=== PATIENT | male | born 1975 | race Caucasian/White ===

== ENCOUNTER 2016-12-01 18:50 | Emergency (ER) | payer OTHER ==
[~2016-12-01] VITALS: Ht 172.7 cm; Wt 91.4 kg
[~2016-12-01 18:50] MED LIST: CLON1TAB3 PO; FAMO20TA11 PO; FLUT0.15; LPR25 PO; METO25TA56 PO; PRLSR20 PO
[2016-12-01 19:01] VITALS: TEMP 37.2; Ht 172.7 cm; Wt 91.4 kg
[2016-12-01] MEDS ORDERED: CLONAZEPAM 1 MG TAB PO STA (19:18)
[2016-12-01 19:43] LABS: URINE APPEARANCE CLEAR (CLEAR); URINE BILIRUBIN NEG (NEG); URINE COLOR YELLOW; URINE EPITHELIAL CELL AUTO 20-30 /lpf (0-5); URINE NITRITE NEG (NEG); URINE SPECIFIC GRAVITY 1.019 (1.000-1.030); UROBILINOGEN NEG (NEG)
[2016-12-01 19:45] LABS: MANUAL MICROSCOPIC REQUIRED? NO; REVIEW REQ? NO
--- NOTE | 2016-12-01 19:53 | DIAGNOSTIC IMAGING REPORT ---
SINGLE VIEW CHEST CLINICAL HISTORY: Dyspnea. Anxiety. FINDINGS: An AP, portable, upright chest radiograph is compared to study dated 02/15/2016. The cardiomediastinal silhouette is unremarkable. Small calcified granulomas are again seen in the right lower lobe. The lungs and pleural spaces are otherwise clear. No pneumothorax is seen. The bony thorax is grossly intact. Bilateral nipple piercings are noted. IMPRESSION: No active disease in the chest. Electronically signed by: Edgar Miramontes M.D. 12/01/2016 7:52 PM Dictated Date/Time: 12/01/2016 7:51 PM
[2016-12-01 20:01] LABS: BENZODIAZEPINE, URINE NEG (NEG); COCAINE,URINE NEG (NEG); PHENCYCLIDINE, URINE NEG (NEG)
[2016-12-01 20:08] LABS: BASO % 0.3 %; BASO ABS # 0.03 K/uL (0-0.2); COMPLETE YES; EOS % 1.1 %; HEMATOCRIT 45.7 % (42-52); IG% 0.5 %; LYMPH % 17.6 %; LYMPH ABS # 1.71 K/uL (1.2-3.4); MEAN CELL VOLUME 93.3 fL (80-100); MEAN CORPUSCULAR HEMOGLOBIN 32.4 pg (25-34); MEAN CORPUSCULAR HGB CONC 34.8 g/dl (32-36); MEAN PLATELET VOLUME 10.4 fL (7.4-10.4); MONO % 6.4 %; NEUT % 74.1 %; PLATELET COUNT 185 K/uL (130-400); WHITE BLOOD COUNT 9.69 K/uL (4.8-10.8)
[2016-12-01 20:15] LABS: BUN/CREATININE RATIO 9.5 (10-20); CREATININE 1.1 mg/dl (0.60-1.40); POTASSIUM 3.9 mmol/L (3.5-5.1)
[2016-12-01 20:16] LABS: CALCIUM 9.2 mg/dl (8.5-10.1)
[2016-12-01 20:26] LABS: THYROID STIMULATING HORMONE 2.05 uIu/ml (0.300-4.500)
--- NOTE | 2016-12-01 21:07 | EMERGENCY ROOM VISIT NOTE ---
History First contact with patient: 19:06 Chief Complaint: MENTAL HEALTH EVALUATION Stated Complaint: ANXIETY,SHAKING,DIZZINESS,NAUSEA History of Present Illness The patient is a 41 year old male who presents to the Emergency Room with complaints of anxiety. The patient states that he has a history of anxiety. He reports his symptoms have been worsening over the past 3 days. He reports that he was recently kicked out of his house, which is causing an increase in his anxiety. He also did not have access to his clonazepam. He contacted his primary care provider, who did write him a prescription for clonazepam. He states that he typically takes 1 mg daily but recently has been taking 0.5 mg in the morning and 0.5 mg at night. He is currently living with a friend. He states that he is feeling lightheaded, shaky and nauseous. He is having difficulty eating and difficulty sleeping due to his anxiety. He denies any depression. He denies any thoughts of harming himself or others. He typically sees his primary care provider for his chronic anxiety. The patient does admit to drinking 3-4 years daily. He denies any other drug use. Review of Systems A complete 10 point review of systems was reviewed with the patient with pertinent positives and negatives as per history of present illness. All else were negative. Past Medical/Surgical History Medical Problems: (1) Bacterial meningitis (2) Peripheral neuropathy Social History Smoking Status: Current Every Day Smoker Drug Use: none Marital Status: Housing Status: lives with family Occupation Status: employed Current/Historical Medications Scheduled Clonazepam (Klonopin), 1 MG PO HS Clonazepam (Klonopin), 1 MG PO DAILY Fluticasone Propionate (Nasal) (Flonase Allergy Relief), 2 SPRAYS NA DAILY Metoprolol Tartrate (Lopressor) (Lopressor), 25 MG PO BID Scheduled PRN Omeprazole (Prilosec), 20 MG PO BID PRN for PRN Allergies Coded Allergies: No Known Allergies (Verified , 12/01/16) Physical Exam Vital Signs Date Time Temp Pulse Resp B/P (MAP) Pulse Ox O2 Delivery O2 Flow Rate FiO2 12/01/16 21:22 90 18 155/91 98 12/01/16 20:15 94 20 141/99 96 Room Air 12/01/16 19:01 37.2 101 18 159/95 98 Room Air Physical Exam VITALS: Vitals are noted on the nurse's note and reviewed by myself. Vital signs stable. GENERAL: This is a 41-year-old male, anxious appearing, nondiaphoretic, well- developed well-nourished. SKIN: Capillary reflex less than 2 seconds. HEENT: Normocephalic. PERRLA. EOMI. Nares patent. Mucous membranes moist. Neck is supple without nuchal rigidity. HEART: Regular rate and rhythm without murmurs gallops or rubs. LUNGS: Clear to auscultation bilaterally without wheezes, rales or rhonchi. MUSCULOSKELETAL: Strength 5/5 throughout. NEURO: Patient was alert and oriented to person place and time. Normal sensation to light and sharp touch. Medical Decision & Procedures ER Provider Diagnostic Interpretation: SINGLE VIEW CHEST CLINICAL HISTORY: Dyspnea. Anxiety. FINDINGS: An AP, portable, upright chest radiograph is compared to study dated 02/15/2016. The cardiomediastinal silhouette is unremarkable. Small calcified granulomas are again seen in the right lower lobe. The lungs and pleural spaces are otherwise clear. No pneumothorax is seen. The bony thorax is grossly intact. Bilateral nipple piercings are noted. IMPRESSION: No active disease in the chest. Laboratory Results 12/01/16 19:40 Red Blood Count 4.90, Mean Corpuscular Volume 93.3, Mean Corpuscular Hemoglobin 32.4, Mean Corpuscular Hemoglobin Concent 34.8, Mean Platelet Volume 10.4, Neutrophils (%) (Auto) 74.1, Lymphocytes (%) (Auto) 17.6, Monocytes (%) (Auto) 6.4, Eosinophils (%) (Auto) 1.1, Basophils (%) (Auto) 0.3, Neutrophils # (Auto) 7.17, Lymphocytes # (Auto) 1.71, Monocytes # (Auto) 0.62, Eosinophils # (Auto) 0.11, Basophils # (Auto) 0.03 12/01/16 19:40 Test 12/01/16 19:10 12/01/16 19:40 12/01/16 19:57 Urine Color YELLOW Urine Appearance CLEAR (CLEAR) Urine pH 5.0 (4.5-7.5) Urine Specific Worth 1.019 (1.000-1.030) Urine Protein NEG (NEG) Urine Glucose (UA) NEG (NEG) Urine Ketones TRACE (NEG) Urine Occult Blood NEG (NEG) Urine Nitrite NEG (NEG) Urine Bilirubin NEG (NEG) Urine Urobilinogen NEG (NEG) Urine Leukocyte Esterase SMALL (NEG) Urine WBC (Auto) 5-10 /hpf (0-5) Urine RBC (Auto) 0-4 /hpf (0-4) Urine Hyaline Casts (Auto) 1-5 /lpf (0-5) Urine Epithelial Cells (Auto) 20-30 /lpf (0-5) Urine Bacteria (Auto) NEG (NEG) Urine Opiates Screen NEG (NEG) Urine Methadone, Qualitative NEG (NEG) Urine Barbiturates NEG (NEG) Urine Phencyclidine (PCP) Level NEG (NEG) Ur Amphetamine/Methamphetamine NEG (NEG) MDMA (Ecstasy) Screen NEG (NEG) Urine Benzodiazepines Screen NEG (NEG) Urine Cocaine Metabolite NEG (NEG) Urine Marijuana (THC) POS (NEG) White Blood Count 9.69 K/uL (4.8-10.8) Red Blood Count 4.90 M/uL (4.7-6.1) Hemoglobin 15.9 g/dL (14.0-18.0) Hematocrit 45.7 % (42-52) Mean Corpuscular Volume 93.3 fL (80-100) Mean Corpuscular Hemoglobin 32.4 pg (25-34) Mean Corpuscular Hemoglobin Concent 34.8 g/dl (32-36) Platelet Count 185 K/uL (130-400) Mean Platelet Volume 10.4 fL (7.4-10.4) Neutrophils (%) (Auto) 74.1 % Lymphocytes (%) (Auto) 17.6 % Monocytes (%) (Auto) 6.4 % Eosinophils (%) (Auto) 1.1 % Basophils (%) (Auto) 0.3 % Neutrophils # (Auto) 7.17 K/uL (1.4-6.5) Lymphocytes # (Auto) 1.71 K/uL (1.2-3.4) Monocytes # (Auto) 0.62 K/uL (0.11-0.59) Eosinophils # (Auto) 0.11 K/uL (0-0.5) Basophils # (Auto) 0.03 K/uL (0-0.2) RDW Standard Deviation 46.3 fL (36.4-46.3) RDW Coefficient of Variation 13.5 % (11.5-14.5) Immature Granulocyte % (Auto) 0.5 % Immature Granulocyte # (Auto) 0.05 K/uL (0.00-0.02) Anion Gap 8.0 mmol/L (3-11) Est Creatinine Clear Calc Drug Dose 97.0 ml/min Estimated GFR () 96.1 Estimated GFR (Non- 82.9 BUN/Creatinine Ratio 9.5 (10-20) Calcium Level 9.2 mg/dl (8.5-10.1) Total Bilirubin 0.4 mg/dl (0.2-1) Aspartate Amino Transf (AST/SGOT) 116 U/L (15-37) Alanine Aminotransferase (ALT/SGPT) 205 U/L (12-78) Alkaline Phosphatase 89 U/L (45-117) Total Protein 7.2 gm/dl (6.4-8.2) Albumin 3.6 gm/dl (3.4-5.0) Globulin 3.6 gm/dl (2.5-4.0) Albumin/Globulin Ratio 1.0 (0.9-2) Thyroid Stimulating Hormone (TSH) 2.050 uIu/ml (0.300-4.500) Ethyl Alcohol mg/dL < 3.0 mg/dl (0-3) Medications Administered Medications (Trade) Dose Ordered Sig/Aquilino Route Start Time Stop Time Status Last Admin Dose Admin Clonazepam (Klonopin Tab) 1 mg NOW STAT PO 12/01/16 19:18 12/01/16 19:23 DC 12/01/16 19:44 1 MG ECG Rate (beats per minute): 95 Rhythm: normal sinus Findings: no acute ischemic change, no ectopy Comparison ECG Date: no prior available ED Course The patient was evaluated as above. Labs were drawn and IV access was obtained. Patient was medicated with 1 mg clonazepam. He's management with ostomy with the patient to discuss mental health resources. Patient was reevaluated and felt much better. Discharge instructions were reviewed with the patient. The patient verbalized understanding of my assessment and treatment plan and was discharged home in good condition. Medical Decision Differential diagnosis includes anxiety, hyperthyroidism, electrolyte abnormality, arrhythmia, among others. The patient is a 41-year-old male who presents today complaining of increased anxiety due to stressful events recently. Labs were unremarkable. TSH was within normal limits. Patient did have mild elevation of LFTs likely secondary to alcohol use. EKG shows a normal sinus rhythm. The patient does have a history of anxiety. Case management with the patient and provided him with resources. He will follow-up with his primary care provider this week. I do feel that the patient is safe for discharge home but recommended that he come back if he has increased depression or any thoughts of harming himself or others. Based on the patient's presentation and work up, I feel the patient is stable for outpatient treatment. The patient was educated to return to the emergency department for any worsening of their current condition or new/concerning symptoms. He will follow up with his PCP. Impression Primary Impression: Acute anxiety Departure Information Dispostion Home / Self-Care Condition GOOD Referrals Karely Delgadillo M.D. (MEDICAL) (PCP) Forms HOME CARE DOCUMENTATION FORM, IMPORTANT VISIT INFORMATION Patient Instructions My [facility] Additional Instructions Follow-up with Dr. Delgadillo as soon as possible. Call tomorrow for appointment. Return to the emergency department with any worsening or new/concerning symptoms or if you have any worsening depression or thoughts of hurting yourself or others.
[2016-12-01 21:22] VITALS: BP 155/91; PULSE 90; O2SAT 98
[2016-12-31] MEDS ORDERED: NICO14DI5 TD (13:58)
[2016-12-31] MEDS ORDERED: FLV1 PO (13:58)
[2016-12-31] MEDS ORDERED: ELQ25 PO (13:58)
[2016-12-31] MEDS ORDERED: THM100 PO (13:58)
[2016-12-31] MEDS ORDERED: ULT50X PO (16:05)
== END 2016-12-01 21:24 | disposition home or self-care (01) ==
LOC: C.EDB 18:51 → C.EDC 21:24
DX: F41.9 Anxiety disorder, unspecified (principal); G62.9 Polyneuropathy, unspecified; F17.200 Nicotine dependence, unspecified, uncomplicated; Z86.61 Personal history of infections of the central nervous system; Z79.899 Other long term (current) drug therapy

== ENCOUNTER 2016-12-29 22:12 | Inpatient (IN) | payer OTHER ==
[~2016-12-29] VITALS: Ht 172.7 cm; Wt 83.2 kg
[~2016-12-29 22:12] MED LIST changes: -FAMO20TA11 PO; -LPR25 PO
[2016-12-29] MEDS ORDERED: SODIUM CHLORIDE 0.9% 1000ML 1,000 ML IV STA ×2 (22:25)
[2016-12-29] MEDS ORDERED: MoRPHine SULFATE 4 MG/ML 1 ML CARP\\VIAL IV STA (22:25)
[2016-12-29] MEDS ORDERED: ONDANSETRON INJ 2 MG/ML 2 ML VIAL IV STA (22:25)
[2016-12-29] MEDS ORDERED: OPTIRAY 320 IV PRN (22:45)
[2016-12-29 22:55] LABS: BASO % 0.3 %; BASO ABS # 0.03 K/uL (0-0.2); COMPLETE YES; EOS % 0.7 %; HEMATOCRIT 48.3 % (42-52); IG% 0.4 %; LYMPH ABS # 1.61 K/uL (1.2-3.4); MEAN CELL VOLUME 91.1 fL (80-100); MEAN CORPUSCULAR HEMOGLOBIN 32.5 pg (25-34); MEAN CORPUSCULAR HGB CONC 35.6 g/dl (32-36); MEAN PLATELET VOLUME 10.4 fL (7.4-10.4); MONO % 13.7 %; NEUT % 69.9 %; PLATELET COUNT 207 K/uL (130-400); WHITE BLOOD COUNT 10.75 K/uL (4.8-10.8)
[2016-12-29 22:59] LABS: ISTAT CREATININE 0.8 mg/dl (0.6-1.3); ISTAT IONIZED CALCIUM 1.15 mmol/l (1.12-1.32)
[2016-12-29 23:13] LABS: ALT/SGPT 93 U/L (12-78); BLOOD UREA NITROGEN 8 mg/dl (7-18); BUN/CREATININE RATIO 7.5 (10-20); CALCIUM 9.3 mg/dl (8.5-10.1); CARBON DIOXIDE 23 mmol/L (21-32); CHLORIDE 104 mmol/L (98-107); GLUCOSE 145 mg/dl (70-99); POTASSIUM 3.8 mmol/L (3.5-5.1); SODIUM 137 mmol/L (136-145)
[2016-12-29 23:18] LABS: ALKALINE PHOSPHATASE 95 U/L (45-117); AST/SGOT 32 U/L (15-37)
[2016-12-29 23:22] LABS: POINT OF CARE TROPONIN I < 0.030 ng/ml (0-0.045)
[2016-12-30] VITALS (9 sets, daily range): BP systolic 101–128; BP diastolic 57–86; PULSE 71–90; TEMP 36.7–37.4; O2SAT 92–97; Ht 172.7 cm; Wt 83.2 kg
[2016-12-30 00:11] LABS: PARTIAL THROMBOPLASTIN RATIO 1.1; PROTHROMBIN TIME (PATIENT) 10.6 SECONDS (9.0-12.0)
[2016-12-30] MEDS ORDERED: HEPARIN IV BOLUS 6,000 UNIT in SYRINGE 0 ML IV ONE (00:30)
[2016-12-30] MEDS ORDERED: LORAZEPAM 2 MG/ML 1 ML VIAL IV ONE (00:35)
[2016-12-30] MEDS: HEPARIN 25,000 UNIT/500ML D5W 500 ML IV PRN ×2 (00:39→18:43)
[2016-12-30] MEDS ORDERED: LORAZEPAM 2 MG/ML 1 ML VIAL ONE (00:43)
[2016-12-30] MEDS ORDERED: MULTI VITAMIN INFUSION IV ONE (00:45)
[2016-12-30] MEDS ORDERED: FOLIC ACID IV ONE (00:45)
[2016-12-30] MEDS ORDERED: ONDANSETRON INJ 2 MG/ML 2 ML VIAL IV PRN (00:45)
[2016-12-30] MEDS ORDERED: LORAZEPAM 2 MG/ML 1 ML VIAL IV PRN (00:45)
[2016-12-30] MEDS ORDERED: GABAPENTIN 600 MG TAB PO SCH (00:45)
[2016-12-30] MEDS ORDERED: ACETAMINOPHEN 325 MG TAB PO PRN (00:45)
[2016-12-30] MEDS ORDERED: THIAMINE HCL IV ONE (00:45)
[2016-12-30] MEDS ORDERED: [UNRECOGNIZED DRUG - OTHER] IV ONE (00:45)
--- NOTE | 2016-12-30 00:54 | EMERGENCY ROOM VISIT NOTE ---
History First contact with patient: 22:18 Chief Complaint: LEG PAIN,LEG INJURY Stated Complaint: L LEG AND CHEST PAIN, R RIB PAIN History of Present Illness The patient is a 41 year old male who presents to the Emergency Room with complaints of chest pain, difficulty breathing for the past day has had left leg pain for the past week. Patient does smoke. No recent travel. No Family history of clotting disorder. He does not have cancer. He describes the right- sided chest pain as aching, ranging in severity 6 out of 10 worse with breathing and better with rest. It does not radiate. Patient denies fevers, cough, congestion, abdominal pain, diaphoresis, headache, weakness. No injury to the area Review of Systems See HPI for pertinent positives & negatives. A total of 10 systems reviewed and were otherwise negative. Past Medical/Surgical History Medical Problems: (1) Bacterial meningitis (2) Peripheral neuropathy (3) Pulmonary embolism Social History Smoking Status: Current Every Day Smoker Drug Use: none Marital Status: Housing Status: lives with family Occupation Status: employed Current/Historical Medications Scheduled Clonazepam (Klonopin), 1 MG PO DAILY Metoprolol Tartrate (Lopressor) (Lopressor), 25 MG PO BID Scheduled PRN Fluticasone Propionate (Nasal) (Flonase Allergy Relief), 2 SPRAYS NA DAILY PRN for Nasal Congestion Omeprazole (Prilosec), 20 MG PO BID PRN for Heartburn Allergies Coded Allergies: No Known Allergies (Verified , 12/29/16) Physical Exam Vital Signs Date Time Temp Pulse Resp B/P (MAP) Pulse Ox O2 Delivery O2 Flow Rate FiO2 12/30/16 00:34 94 18 131/100 96 Room Air 12/29/16 23:09 Room Air 12/29/16 23:09 96 Room Air 12/29/16 22:40 112 12/29/16 22:14 36.9 122 18 149/100 96 Room Air Physical Exam VITALS: Vitals are noted on the nurse's note and reviewed by myself. Vital signs tachycardic. GENERAL: Pleasant male who appears short of breath, in no acute distress, nondiaphoretic, well-developed well-nourished. SKIN: The skin was without rashes, erythema, edema, or bruising. There is no tenting of the skin. Capillary reflex less than 2 seconds. HEAD: Normocephalic atraumatic. EARS: External auditory canals clear, tympanic membranes pearly trimble without erythema or effusion bilaterally. EYES: Pupils equal round and reactive to light and accommodation. Conjunctivae without injection, sclerae without icterus. Extraocular movements intact. NOSE: Patent, turbinates without inflammation or discharge. MOUTH: Mucous membranes moist. Pharynx without erythema or exudate. Uvula midline. Airway patent. Tongue does not deviate. NECK: Supple without nuchal rigidity. No lymphadenopathy. No thyromegaly. Cervical spine is nontender. No JVD. HEART: Tachycardic Regular rate and rhythm without murmurs gallops or rubs. LUNGS: Clear to auscultation bilaterally without wheezes, rales or rhonchi. No dullness to percussion. No retractions or accessory muscle use. Chest nontender to palpation ABDOMEN: Positive bowel sounds x 4. Normal tympanic percussion. Soft, nontender, without masses or organomegaly. Smith sign negative. No guarding or rebound tenderness. MUSCULOSKELETAL: No muscle atrophy, erythema, or edema noted. Left calf tender to palpation NEURO: Patient was alert and oriented to person place and time. Normal sensation to light and sharp touch. No focal neurological deficits. Medical Decision & Procedures Laboratory Results 12/29/16 22:44 Red Blood Count 5.30, Mean Corpuscular Volume 91.1, Mean Corpuscular Hemoglobin 32.5, Mean Corpuscular Hemoglobin Concent 35.6, Mean Platelet Volume 10.4, Neutrophils (%) (Auto) 69.9, Lymphocytes (%) (Auto) 15.0, Monocytes (%) (Auto) 13.7, Eosinophils (%) (Auto) 0.7, Basophils (%) (Auto) 0.3, Neutrophils # (Auto ) 7.53, Lymphocytes # (Auto) 1.61, Monocytes # (Auto) 1.47, Eosinophils # (Auto ) 0.07, Basophils # (Auto) 0.03 12/29/16 22:44 Test 12/29/16 22:44 12/29/16 22:46 12/29/16 23:03 12/30/16 00:24 White Blood Count 10.75 K/uL (4.8-10.8) Red Blood Count 5.30 M/uL (4.7-6.1) Hemoglobin 17.2 g/dL (14.0-18.0) Hematocrit 48.3 % (42-52) Mean Corpuscular Volume 91.1 fL (80-100) Mean Corpuscular Hemoglobin 32.5 pg (25-34) Mean Corpuscular Hemoglobin Concent 35.6 g/dl (32-36) Platelet Count 207 K/uL (130-400) Mean Platelet Volume 10.4 fL (7.4-10.4) Neutrophils (%) (Auto) 69.9 % Lymphocytes (%) (Auto) 15.0 % Monocytes (%) (Auto) 13.7 % Eosinophils (%) (Auto) 0.7 % Basophils (%) (Auto) 0.3 % Neutrophils # (Auto) 7.53 K/uL (1.4-6.5) Lymphocytes # (Auto) 1.61 K/uL (1.2-3.4) Monocytes # (Auto) 1.47 K/uL (0.11-0.59) Eosinophils # (Auto) 0.07 K/uL (0-0.5) Basophils # (Auto) 0.03 K/uL (0-0.2) RDW Standard Deviation 42.9 fL (36.4-46.3) RDW Coefficient of Variation 12.9 % (11.5-14.5) Immature Granulocyte % (Auto) 0.4 % Immature Granulocyte # (Auto) 0.04 K/uL (0.00-0.02) Prothrombin Time 10.6 SECONDS (9.0-12.0) Prothromb Time International Ratio 1.0 (0.9-1.1) Activated Partial Thromboplast Time 28.7 SECONDS (21.0-31.0) Partial Thromboplastin Ratio 1.1 Est Creatinine Clear Calc Drug Dose 102.1 ml/min Estimated GFR () 107.9 Estimated GFR (Non- 93.1 BUN/Creatinine Ratio 7.5 (10-20) Calcium Level 9.3 mg/dl (8.5-10.1) Magnesium Level 2.0 mg/dl (1.8-2.4) Total Bilirubin 0.7 mg/dl (0.2-1) Direct Bilirubin 0.2 mg/dl (0-0.2) Aspartate Amino Transf (AST/SGOT) 32 U/L (15-37) Alanine Aminotransferase (ALT/SGPT) 93 U/L (12-78) Alkaline Phosphatase 95 U/L (45-117) Total Creatine Kinase 53 U/L (39-308) Troponin I < 0.015 ng/ml (0-0.045) Total Protein 8.2 gm/dl (6.4-8.2) Albumin 3.9 gm/dl (3.4-5.0) Lipase 187 U/L (73-393) Hepatitis B Surface Antigen NEG (NEG) Hepatitis C Antibody NEG (NEG) Bedside Hemoglobin 16.0 g/dl (14.0-18.0) Bedside Hematocrit 47 % (42-52) Bedside Sodium 137 mEq/L (135-144) Bedside Potassium 3.8 mEq/L (3.3-5.0) Bedside Chloride 101 mEq/L (101-112) Bedside Total CO2 22 mEq/l (24-31) Anion Gap 19.0 mmol/L (16-25) Bedside Blood Urea Nitrogen 6 mg/dl (7-18) Bedside Creatinine 0.8 mg/dl (0.6-1.3) Bedside Glucose (other) 152 mg/dl (70-99) Bedside Ionized Calcium (Raul) 1.15 mmol/l (1.12-1.32) Bedside D-Dimer > 450 ng/mlFEU (0-450) Bedside Troponin I < 0.030 ng/ml (0-0.045) Test 12/30/16 00:36 Medications Administered Medications (Trade) Dose Ordered Sig/Aquilino Route Start Time Stop Time Status Last Admin Dose Admin Sodium Chloride 1,000 ml @ 999 mls/hr Q1H1M STAT IV 12/29/16 22:25 12/29/16 23:25 DC 12/29/16 22:25 999 MLS/HR Morphine Sulfate (MoRPHine SULFATE INJ) 4 mg NOW STAT IV 12/29/16 22:25 12/29/16 22:28 DC 12/29/16 22:54 4 MG Ondansetron HCl (Zofran Inj) 4 mg NOW STAT IV 12/29/16 22:25 12/29/16 22:28 DC 12/29/16 22:54 4 MG Heparin Sodium (Porcine) 6000 unit/Syringe 6 ml @ 10 mls/min NOW ONCE IV 12/30/16 00:30 12/30/16 00:31 DC 12/30/16 00:38 10 MLS/MIN Heparin Sodium/ Dextrose 500 ml @ 27 mls/hr [id number] PRN IV 12/30/16 00:30 01/29/17 00:29 12/30/16 00:39 27 MLS/HR Lorazepam (Ativan Inj) 2 mg STK-MED ONCE .ROUTE 12/30/16 00:43 12/30/16 00:44 DC 12/30/16 00:43 0.5 MG ED Course Prior records/ancillary studies reviewed. Triage Nursing notes reviewed. The patient's history was concerning for chest pain. Differential diagnosis: Etiologies such as cardiac ischemia, aortic dissection, pulmonary embolism, pneumonia, pneumothorax, musculoskeletal, infections, pericarditis, myocarditis , esophageal rupture, gastrointestinal, as well as others were entertained. Physical examination: As above. ER treatment provided: Morphine, Zofran, IV fluids On reassessment the patient felt better. Diagnostic interpretation by me: The electrocardiogram was negative for pathologic change. Normal sinus, normal intervals, no acute ST-T wave changes. Rate of 91. Impression normal sinus rhythm interpreted by myself The labs revealed stable H&H. I-STAT was ordered for emergent CTA for rule out PE Negative troponin. Elevated d-dimer Imaging studies: Chest x-ray as above CTA concerning for PE DVT ultrasound positive on the left leg Consultation: A consultation was placed with the hospitalist, Dr Metz. The case was discussed and diagnostics were reviewed. The patient was evaluated in the ER for further treatment. Exam and history seem consistent with acute PE and DVTs. Patient was started on heparin. He will be evaluated by medicine for admission. Negative troponin. No acute findings and EKG. This is his first blood clot. Hypercoagulable workup was ordered. Patient is agreeable to treatment plan of admission. He was reassessed multiple times. He remained stable.By the evaluation outlined above emergent etiologies such as cardiac ischemia, aortic dissection, pneumonia, pneumothorax, infections, pericarditis, myocarditis, gastrointestinal, as well as others were deemed relatively unlikely. The pt informed about the findings as listed above. All questions were answered and pleased with the treatment. Case reviewed with my attending Medical Decision As above Impression Primary Impression: Pulmonary embolism Critical Care I have personally spent greater than 30 minutes of critical care time in the direct management of this patient. This includes bedside care, interpretation of diagnostic studies, and testing, discussion with consultants, patient, and family members, and other required patient management activities. This 30 minutes is in excess of all separately billable procedures. Departure Information Dispostion Being Evaluated By Hospitalist Condition FAIR Referrals Karely Delgadillo M.D. (MEDICAL) (PCP) Patient Instructions My [facility] Problem Qualifiers Primary Impression: Pulmonary embolism Pulmonary embolism type: other Chronicity: acute Acute cor pulmonale presence: without acute cor pulmonale Qualified Codes: I26.99 - Other pulmonary embolism without acute cor pulmonale
[2016-12-30] MEDS ORDERED: METOPROLOL TARTRATE 25 MG TAB PO ONE (00:58)
[2016-12-30] MEDS: CLONAZEPAM 1 MG TAB PO PRN ×2 (01:44→23:28)
[2016-12-30] MEDS: TRAMADOL HCL 50 MG TAB PO PRN ×3 (01:45→23:28)
[2016-12-30] MEDS: MoRPHine SULFATE 4 MG/ML 1 ML CARP\\VIAL IV PRN ×3 (01:45→15:36)
--- NOTE | 2016-12-30 01:47 | History and Physical ---
History & Physical Date & Time of Service: Dec 30, 2016 at 01:44 Chief Complaint: Pulmonary Embolism Primary Care Physician: Karely Delgadillo M.D. 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 Patient completed ceftriaxone treatment. Last week patient noted left calf discomfort. One day history of pleuritic right chest pain with shortness of breath, denies trauma. At the emergency room CT chest showed pulmonary embolism right. IV heparin started. Past Medical/Surgical History Medical Problems: (1) Bacterial meningitis Status: Resolved (2) Peripheral neuropathy Status: Chronic Social History Smoking Status: Current Every Day Smoker Alcohol Use: daily4 beers Drug Use: none Marital Status: Occupational Status: employed Immunizations History of Influenza Vaccine: No History of Tetanus Vaccine?: No History of Pneumococcal: No History of Hepatitis B Vaccine: No Multi-Drug Resistant Organisms History of MDRO: No Allergies Coded Allergies: No Known Allergies (Verified , 12/29/16) Home Medications Scheduled Clonazepam (Klonopin), 1 MG PO DAILY Metoprolol Tartrate (Lopressor) (Lopressor), 25 MG PO BID Scheduled PRN Fluticasone Propionate (Nasal) (Flonase Allergy Relief), 2 SPRAYS NA DAILY PRN for Nasal Congestion Omeprazole (Prilosec), 20 MG PO BID PRN for Heartburn Review of Systems as per HPI< all other ROS negative Physical Exam Vital Signs Date Time Temp Pulse Resp B/P (MAP) Pulse Ox O2 Delivery O2 Flow Rate FiO2 12/30/16 01:21 36.9 90 19 128/86 97 Room Air 12/30/16 00:55 36.9 94 18 131/100 96 12/30/16 00:34 94 18 131/100 96 Room Air 12/29/16 23:09 Room Air 12/29/16 23:09 96 Room Air 12/29/16 22:40 112 12/29/16 22:14 36.9 122 18 149/100 96 Room Air General Appearance: + pertinent finding (anxious) Head: normocephalic, + pertinent finding (partial alopecia) ENT: normal ENT inspection Neck: supple Respiratory/Chest: + decreased breath sounds, + pertinent finding (tenderness right chest wall) Cardiovascular: + tachycardia Abdomen/GI: soft Extremities/Musculoskelatal: + calf tenderness Neurologic/Psych: alert, + pertinent finding (no gross focality) Skin: normal color Diagnostics Laboratory Results Results Past 24 Hours Test 12/29/16 22:44 12/29/16 22:46 12/29/16 23:03 12/30/16 00:24 Range/Units White Blood Count 10.75 4.8-10.8 K/uL Red Blood Count 5.30 4.7-6.1 M/uL Hemoglobin 17.2 14.0-18.0 g/dL Hematocrit 48.3 42-52 % Mean Corpuscular Volume 91.1 80-100 fL Mean Corpuscular Hemoglobin 32.5 25-34 pg Mean Corpuscular Hemoglobin Concent 35.6 32-36 g/dl Platelet Count 207 130-400 K/uL Mean Platelet Volume 10.4 7.4-10.4 fL Neutrophils (%) (Auto) 69.9 % Lymphocytes (%) (Auto) 15.0 % Monocytes (%) (Auto) 13.7 % Eosinophils (%) (Auto) 0.7 % Basophils (%) (Auto) 0.3 % Neutrophils # (Auto) 7.53 1.4-6.5 K/uL Lymphocytes # (Auto) 1.61 1.2-3.4 K/uL Monocytes # (Auto) 1.47 0.11-0.59 K/uL Eosinophils # (Auto) 0.07 0-0.5 K/uL Basophils # (Auto) 0.03 0-0.2 K/uL RDW Standard Deviation 42.9 36.4-46.3 fL RDW Coefficient of Variation 12.9 11.5-14.5 % Immature Granulocyte % (Auto) 0.4 % Immature Granulocyte # (Auto) 0.04 0.00-0.02 K/uL Prothrombin Time 10.6 9.0-12.0 SECONDS Prothromb Time International Ratio 1.0 0.9-1.1 Activated Partial Thromboplast Time 28.7 21.0-31.0 SECONDS Partial Thromboplastin Ratio 1.1 Sodium Level 137 136-145 mmol/L Potassium Level 3.8 3.5-5.1 mmol/L Chloride Level 104 98-107 mmol/L Carbon Dioxide Level 23 21-32 mmol/L Anion Gap 10.0 19.0 16-25 mmol/L Blood Urea Nitrogen 8 7-18 mg/dl Creatinine 1.00 0.60-1.40 mg/dl Est Creatinine Clear Calc Drug Dose 102.1 ml/min Estimated GFR () 107.9 Estimated GFR (Non- 93.1 BUN/Creatinine Ratio 7.5 10-20 Random Glucose 145 70-99 mg/dl Calcium Level 9.3 8.5-10.1 mg/dl Magnesium Level 2.0 1.8-2.4 mg/dl Total Bilirubin 0.7 0.2-1 mg/dl Direct Bilirubin 0.2 0-0.2 mg/dl Aspartate Amino Transf (AST/SGOT) 32 15-37 U/L Alanine Aminotransferase (ALT/SGPT) 93 12-78 U/L Alkaline Phosphatase 95 45-117 U/L Total Creatine Kinase 53 39-308 U/L Troponin I < 0.015 0-0.045 ng/ml Total Protein 8.2 6.4-8.2 gm/dl Albumin 3.9 3.4-5.0 gm/dl Lipase 187 73-393 U/L Hepatitis B Surface Antigen NEG NEG Hepatitis C Antibody NEG NEG Bedside Hemoglobin 16.0 14.0-18.0 g/dl Bedside Hematocrit 47 42-52 % Bedside Sodium 137 135-144 mEq/L Bedside Potassium 3.8 3.3-5.0 mEq/L Bedside Chloride 101 101-112 mEq/L Bedside Total CO2 22 24-31 mEq/l Bedside Blood Urea Nitrogen 6 7-18 mg/dl Bedside Creatinine 0.8 0.6-1.3 mg/dl Bedside Glucose (other) 152 70-99 mg/dl Bedside Ionized Calcium (Raul) 1.15 1.12-1.32 mmol/l Bedside D-Dimer > 450 0-450 ng/mlFEU Bedside Troponin I < 0.030 0-0.045 ng/ml Diagnostic Radiology CT chest initial read : Pulmonary emboli right, no right heart strain EKG As per my interpretation normal sinus rhythm no ischemia Impression Assessment and Plan AP Acute pulmonary thromboembolism no obvious provoking factor for now HTN, slightly elevated, px admits to partial compliance w/ home BB, anxiety contributory ETOH abuse as per records ongoing tobacco abuse PCU IV heparin for now Defer discussion reqarding choice for oral agent for anticoag to AM provider and px. facilitate home BB anxiolytic prn DT precautions nicotine patch DVT prophylaxis. Heparin Full code Advanced Directives Existing Living Will: No Existing Power of Labor Delivery Specialist: No VTE Prophylaxis VTE Risk Assessment Done? Y/N: Yes Risk Level: High
[2016-12-30] MEDS ORDERED: GABAPENTIN 1200MG LOADING DOSE PO ONE (02:15)
[2016-12-30 06:29] LABS: ESTIMATED AVERAGE GLUCOSE 103 mg/dl; HA1C FLAG Normal (Normal)
--- NOTE | 2016-12-30 06:47 | DIAGNOSTIC IMAGING REPORT ---
CT ANGIOGRAPHY OF THE CHEST, PULMONARY EMBOLUS PROTOCOL CLINICAL HISTORY: Chest pain, shortness of breath and leg pain. COMPARISON STUDY: Chest radiograph December 01, 2016. TECHNIQUE: Following IV administration of 102 mL of [id number], helical axial images of the chest were obtained utilizing the pulmonary embolus protocol. Maximal intensity projections and sagittal and coronal reformats were viewed on an independent 3D workstation. IV contrast was administered without complication. CT DOSE: 384.91 mGy.cm FINDINGS: Lobar pulmonary emboli are noted within the right lower lobe with additional segmental and subsegmental pulmonary emboli. There are a few subsegmental pulmonary emboli within the left lower lobe. There is no central pulmonary embolus. There is no CT evidence of right heart strain. The size the heart is normal. There is no evidence of thoracic aortic dissection. There are no enlarged thoracic lymph nodes. There is a calcified right lower lobe granuloma. There are scattered subpleural groundglass opacities within the right lung. There is no pleural effusion or pneumothorax. Bony thorax is unremarkable. There are granulomas within the spleen. A subcentimeter hypodensity within the anterior segment of right hepatic lobe likely reflects a cyst. IMPRESSION: 1. Multiple right lower lobe lobar, segmental and subsegmental pulmonary emboli with scattered subsegmental pulmonary emboli within the left lower lobe. No CT evidence of right heart strain. 2. Several subpleural groundglass opacities within the right lung. These could reflect developing pulmonary infarcts, atelectasis, mild infectious process or scarring. Electronically signed by: Jf Lobo M.D. 12/30/2016 6:46 AM Dictated Date/Time: 12/30/2016 6:39 AM
[2016-12-30 06:49] LABS: BASO % 0.6 %; BASO ABS # 0.06 K/uL (0-0.2); COMPLETE YES; EOS % 1.4 %; HEMATOCRIT 44.6 % (42-52); IG% 0.4 %; LYMPH % 23.2 %; MEAN CELL VOLUME 93.9 fL (80-100); MEAN CORPUSCULAR HEMOGLOBIN 32.6 pg (25-34); MEAN CORPUSCULAR HGB CONC 34.8 g/dl (32-36); MEAN PLATELET VOLUME 10.2 fL (7.4-10.4); MONO % 16.3 %; NEUT % 58.1 %; PLATELET COUNT 177 K/uL (130-400); RED BLOOD COUNT 4.75 M/uL (4.7-6.1); WHITE BLOOD COUNT 9.47 K/uL (4.8-10.8)
--- NOTE | 2016-12-30 06:59 | DIAGNOSTIC IMAGING REPORT ---
CHEST ONE VIEW PORTABLE CLINICAL HISTORY: Chest pain. COMPARISON STUDY: Chest radiograph December 01, [address] December 29, 2016. FINDINGS: A calcified right lower lobe granuloma is noted. Mild subpleural right midlung opacity is present. Left lung is clear. Cardiac size is normal. Mediastinal contours are normal. There is no pneumothorax or pleural effusion. IMPRESSION: Mild airspace opacity within the periphery of the right mid lung, better depicted on prior chest CT. Electronically signed by: Jf Lobo M.D. 12/30/2016 6:58 AM Dictated Date/Time: 12/30/2016 6:56 AM
--- NOTE | 2016-12-30 07:01 | DIAGNOSTIC IMAGING REPORT ---
BILATERAL LOWER EXTREMITY VENOUS DOPPLER CLINICAL HISTORY: Leg pain. COMPARISON STUDY: No previous studies for comparison. TECHNIQUE: Sonography of the deep venous system of the bilateral lower extremities was performed. Compression and augmentation were evaluated. FINDINGS: There is no deep venous thrombus within the right lower extremity. There is nonocclusive deep venous thrombus within the left superficial femoral, popliteal and posterior tibial veins with occlusive thrombus within the left peroneal and anterior tibial veins. IMPRESSION: 1. Deep venous thrombus within the left superficial, popliteal, posterior tibial, peroneal and anterior tibial veins. 2. No deep venous thrombus within the right lower extremity. Electronically signed by: Jf Lobo M.D. 12/30/2016 7:00 AM Dictated Date/Time: 12/30/2016 6:58 AM
[2016-12-30 07:17] LABS: PARTIAL THROMBOPLASTIN RATIO 3.9
[2016-12-30] MEDS: METOPROLOL TARTRATE 25 MG TAB PO SCH ×2 (07:50→20:33)
[2016-12-30] MEDS: GABAPENTIN 600MG Q6H DOSE PO SCH ×2 (07:51→13:29)
[2016-12-30] MEDS: THIAMINE HCL 100 MG TAB PO SCH (08:15)
[2016-12-30] MEDS: NICOTINE 14 MG/24 HR TDSY TD SCH (08:15)
[2016-12-30] MEDS ORDERED: PERFLUTREN LIPID MICROSPHERE (DEFINITY) IV ONE (11:41)
--- NOTE | 2016-12-30 12:35 | Progress Note ---
Internal Med Progress Note Date of Service: Dec 30, 2016. Provider Documentation: SUBJECTIVE: The patient was sen and examined Unprovoked DVT and PE Complains of Chest pain on deep breathing OBJECTIVE: Vital Signs-as noted below Exam: General-no distress at rest Eyes-normal ENT-normal Neck-supple Lungs-clear to auscultate bilaterally Heart-Regular,no murmur appreciated Abdomen-Benign,no masses,bowel sound present Extremities-Trace edema Neuro-AAOx3 Lab data as noted below. ASSESSMENT & PLAN: Acute pulmonary Embolism with Acute Left Leg DVT No obvious provoking factor Only risk factor seems to be a smoker No Family H/O clot disorders Started on IV heparin Likely to go home on Eliquis Hypercoagulable W/U pending HTN, Slightly elevated, Low l compliance w/ home BB, Anxiety contributory ETOH abuse as per records Ongoing tobacco abuse DT precautions Nicotine patch DVT prophylaxis. Heparin Full code Vital Signs: Date Time Temp Pulse Resp B/P (MAP) Pulse Ox O2 Delivery O2 Flow Rate FiO2 12/30/16 11:13 36.9 82 16 107/67 (80) 95 Room Air 12/30/16 08:00 Room Air 12/30/16 07:25 37.0 73 16 101/64 (76) 96 Room Air 12/30/16 04:20 97 Room Air 12/30/16 03:04 36.7 82 17 119/79 (92) 95 Room Air 12/30/16 01:21 36.9 90 19 128/86 97 Room Air 12/30/16 00:55 36.9 94 18 131/100 96 12/30/16 00:34 94 18 131/100 96 Room Air 12/29/16 23:09 Room Air 12/29/16 23:09 96 Room Air 12/29/16 22:40 112 12/29/16 22:14 36.9 122 18 149/100 96 Room Air Lab Results: Results Past 24 Hours Test 12/29/16 22:44 12/29/16 22:46 12/29/16 23:03 12/30/16 00:24 Range/Units White Blood Count 10.75 4.8-10.8 K/uL Red Blood Count 5.30 4.7-6.1 M/uL Hemoglobin 17.2 14.0-18.0 g/dL Hematocrit 48.3 42-52 % Mean Corpuscular Volume 91.1 80-100 fL Mean Corpuscular Hemoglobin 32.5 25-34 pg Mean Corpuscular Hemoglobin Concent 35.6 32-36 g/dl Platelet Count 207 130-400 K/uL Mean Platelet Volume 10.4 7.4-10.4 fL Neutrophils (%) (Auto) 69.9 % Lymphocytes (%) (Auto) 15.0 % Monocytes (%) (Auto) 13.7 % Eosinophils (%) (Auto) 0.7 % Basophils (%) (Auto) 0.3 % Neutrophils # (Auto) 7.53 1.4-6.5 K/uL Lymphocytes # (Auto) 1.61 1.2-3.4 K/uL Monocytes # (Auto) 1.47 0.11-0.59 K/uL Eosinophils # (Auto) 0.07 0-0.5 K/uL Basophils # (Auto) 0.03 0-0.2 K/uL RDW Standard Deviation 42.9 36.4-46.3 fL RDW Coefficient of Variation 12.9 11.5-14.5 % Immature Granulocyte % (Auto) 0.4 % Immature Granulocyte # (Auto) 0.04 0.00-0.02 K/uL Prothrombin Time 10.6 9.0-12.0 SECONDS Prothromb Time International Ratio 1.0 0.9-1.1 Activated Partial Thromboplast Time 28.7 21.0-31.0 SECONDS Partial Thromboplastin Ratio 1.1 Sodium Level 137 136-145 mmol/L Potassium Level 3.8 3.5-5.1 mmol/L Chloride Level 104 98-107 mmol/L Carbon Dioxide Level 23 21-32 mmol/L Anion Gap 10.0 19.0 16-25 mmol/L Blood Urea Nitrogen 8 7-18 mg/dl Creatinine 1.00 0.60-1.40 mg/dl Est Creatinine Clear Calc Drug Dose 102.1 ml/min Estimated GFR () 107.9 Estimated GFR (Non- 93.1 BUN/Creatinine Ratio 7.5 10-20 Random Glucose 145 70-99 mg/dl Estimated Average Glucose 103 mg/dl Hemoglobin A1c 5.2 4.5-5.6 % Calcium Level 9.3 8.5-10.1 mg/dl Magnesium Level 2.0 1.8-2.4 mg/dl Total Bilirubin 0.7 0.2-1 mg/dl Direct Bilirubin 0.2 0-0.2 mg/dl Aspartate Amino Transf (AST/SGOT) 32 15-37 U/L Alanine Aminotransferase (ALT/SGPT) 93 12-78 U/L Alkaline Phosphatase 95 45-117 U/L Total Creatine Kinase 53 39-308 U/L Troponin I < 0.015 0-0.045 ng/ml Total Protein 8.2 6.4-8.2 gm/dl Albumin 3.9 3.4-5.0 gm/dl Lipase 187 73-393 U/L Hepatitis B Surface Antigen NEG NEG Hepatitis C Antibody NEG NEG Bedside Hemoglobin 16.0 14.0-18.0 g/dl Bedside Hematocrit 47 42-52 % Bedside Sodium 137 135-144 mEq/L Bedside Potassium 3.8 3.3-5.0 mEq/L Bedside Chloride 101 101-112 mEq/L Bedside Total CO2 22 24-31 mEq/l Bedside Blood Urea Nitrogen 6 7-18 mg/dl Bedside Creatinine 0.8 0.6-1.3 mg/dl Bedside Glucose (other) 152 70-99 mg/dl Bedside Ionized Calcium (Raul) 1.15 1.12-1.32 mmol/l Bedside D-Dimer > 450 0-450 ng/mlFEU Bedside Troponin I < 0.030 0-0.045 ng/ml Test 12/30/16 06:30 Range/Units White Blood Count 9.47 4.8-10.8 K/uL Red Blood Count 4.75 4.7-6.1 M/uL Hemoglobin 15.5 14.0-18.0 g/dL Hematocrit 44.6 42-52 % Mean Corpuscular Volume 93.9 80-100 fL Mean Corpuscular Hemoglobin 32.6 25-34 pg Mean Corpuscular Hemoglobin Concent 34.8 32-36 g/dl Platelet Count 177 130-400 K/uL Mean Platelet Volume 10.2 7.4-10.4 fL Neutrophils (%) (Auto) 58.1 % Lymphocytes (%) (Auto) 23.2 % Monocytes (%) (Auto) 16.3 % Eosinophils (%) (Auto) 1.4 % Basophils (%) (Auto) 0.6 % Neutrophils # (Auto) 5.50 1.4-6.5 K/uL Lymphocytes # (Auto) 2.20 1.2-3.4 K/uL Monocytes # (Auto) 1.54 0.11-0.59 K/uL Eosinophils # (Auto) 0.13 0-0.5 K/uL Basophils # (Auto) 0.06 0-0.2 K/uL RDW Standard Deviation 44.8 36.4-46.3 fL RDW Coefficient of Variation 13.0 11.5-14.5 % Immature Granulocyte % (Auto) 0.4 % Immature Granulocyte # (Auto) 0.04 0.00-0.02 K/uL Activated Partial Thromboplast Time 100.5 21.0-31.0 SECONDS Partial Thromboplastin Ratio 3.9 Troponin I < 0.015 0-0.045 ng/ml
--- NOTE | 2016-12-30 14:50 | ECHOCARDIOGRAM REPORT ---
*NOTICE TO RECEIVING REPUBLICAN AGENCY This information is strictly Confidential and protected under [place] law. [place] law prohibits you from making any further disclosure of this information unless further disclosure is expressly permitted by the written consent of the person to whom it pertains or is authorized by law. A general authorization for the release of medical or other information is not sufficient for this purpose. Hospital accepts no responsibility if the information is made available to any other person, INCLUDING THE PATIENT. Interpretation Summary * Name: JOSE G WALL Study Date: 12/30/2016 11:19 AM BP: 101/64 mmHg * Patient Location: C.2T\S\S241\S\2 HR: 88 * : 1975 (M/d/yyyy) Gender: Male Height: 68 in * Age: 41 yrs Ethnicity: CA Weight: 182 lb * Ordering Physician: Corona Cornell * Referring Physician: Self, Referred * Performed By: Rowena Al RCS * * Reason For Study: PULMONARY EMBOLISM * BSA: 2.0 m2 * -- Conclusions -- * Normal LV chamber size with mild concentric LVH. * Normal LV systolic function, EF 55-60%. * No segmental left ventricular wall motion abnormalities are noted. * Grade II diastolic dysfunction. * The right ventricular cavity size is normal (basal dimension <4.2 cm in right ventricular apical 4-chamber view). * The right ventricular systolic function is normal as assessed by tricuspid annular plane systolic excursion (TAPSE) (normal >1.5 cm). * No significant valvular pathology. Procedure Details * A complete two-dimensional transthoracic echocardiogram was performed (2D, M-mode, Doppler and color flow Doppler). * A contrast injection of Definity was performed to improve assessment of LV function. * Contrast was injected into an intravenous site in the right arm. * One vial of Definity ultrasound contrast was diluted in normal saline to a total volume of 10 ml. A total of '2' ml of solution was administered during imaging. * Lot # [id number] of Definity utilized for procedure. * Expiration date JAN 19. * The attending nurse who injected the contrast agent was KALYANI VALADEZ, RN. Left Ventricle * The left ventricle is normal in size. * There is mild concentric left ventricular hypertrophy. * Ejection Fraction = 55-60%. * Left ventricular systolic function is normal. * No segmental left ventricular wall motion abnormalities are noted. * The left ventricular wall motion is normal. Right Ventricle * The right ventricular cavity size is normal (basal dimension <4.2 cm in right ventricular apical 4-chamber view). * The right ventricular systolic function is normal as assessed by tricuspid annular plane systolic excursion (TAPSE) (normal >1.5 cm). Atria * The left atrial size is normal. * Right atrial size is normal. * No ASD detected; PFO is not assessed. Mitral Valve * The mitral valve is normal in structure and function. Tricuspid Valve * The tricuspid valve is normal in structure and function. Aortic Valve * The aortic valve is normal in structure and function. Pulmonic Valve * The pulmonary valve is not well seen, but the Doppler examination is normal without significant regurgitation or stenosis. Great Vessels * The aortic root is normal size. Pericardium/Pleural * There is no pericardial effusion. Left Ventricular Diastolic Function * Diastolic dysfunction, Grade II (pseudonormalization pattern). MMode 2D Measurements and Calculations IVSd 1.4 cm IVSs 1.6 cm LVIDd 4.3 cm LVIDs 2.9 cm LVPWd 1.2 cm LVPWs 1.4 cm IVS/LVPW 1.1 FS 31.5 % EDV(Teich) 83.1 ml ESV(Teich) 33.5 ml EF(Teich) 59.7 % EDV(cubed) 79.6 ml ESV(cubed) 25.6 ml EF(cubed) 67.8 % % IVS thick 19.6 % % LVPW thick 16.2 % LV mass(C)d 206.7 grams LV mass(C)dI 105.2 grams/m\S\2 LV mass(C)s 159.3 grams LV mass(C)sI 81.1 grams/m\S\2 SV(Teich) 49.6 ml SI(Teich) 25.3 ml/m\S\2 SV(cubed) 54.0 ml SI(cubed) 27.5 ml/m\S\2 Ao root diam 2.9 cm Ao root area 6.5 cm\S\2 ACS 2.0 cm LA dimension 3.7 cm LA/Ao 1.3 LVOT diam 2.0 cm LVOT area 3.1 cm\S\2 LVAd ap4 34.2 cm\S\2 LVLd ap4 8.5 cm EDV(MOD-sp4) 112.0 ml EDV(sp4-el) 116.1 ml LVAs ap4 20.6 cm\S\2 LVLs ap4 7.1 cm ESV(MOD-sp4) 49.6 ml ESV(sp4-el) 50.7 ml EF(MOD-sp4) 55.8 % EF(sp4-el) 56.4 % LVAd ap2 41.4 cm\S\2 LVLd ap2 9.0 cm EDV(MOD-sp2) 159.2 ml EDV(sp2-el) 161.1 ml LVAs ap2 25.6 cm\S\2 LVLs ap2 7.9 cm ESV(MOD-sp2) 68.8 ml ESV(sp2-el) 70.3 ml EF(MOD-sp2) 56.8 % EF(sp2-el) 56.4 % LVLd %diff 5.4 % EDV(MOD-bp) 137.5 ml LVLs %diff 10.0 % ESV(MOD-bp) 61.0 ml EF(MOD-bp) 55.7 % SV(MOD-sp4) 62.5 ml SI(MOD-sp4) 31.8 ml/m\S\2 SV(MOD-sp2) 90.4 ml SI(MOD-sp2) 46.0 ml/m\S\2 SV(MOD-bp) 76.5 ml SI(MOD-bp) 39.0 ml/m\S\2 SV(sp4-el) 65.4 ml SI(sp4-el) 33.3 ml/m\S\2 SV(sp2-el) 90.8 ml SI(sp2-el) 46.3 ml/m\S\2 Doppler Measurements and Calculations MV E max reic 92.2 cm/sec MV A max eric 75.0 cm/sec MV E/A 1.2 MV P1/2t max eric 96.7 cm/sec MV P1/2t 90.3 msec MVA(P1/2t) 2.4 cm\S\2 MV dec slope 313.8 cm/sec\S\2 MV dec time 0.21 sec Ao V2 max 137.8 cm/sec Ao max PG 7.6 mmHg Ao max PG (full) 2.8 mmHg BEL(V,A) 2.4 cm\S\2 BEL(V,D) 2.4 cm\S\2 LV V1 max PG 4.8 mmHg LV V1 max 109.3 cm/sec PA V2 max 166.0 cm/sec PA max PG 11.0 mmHg
[2016-12-30] MEDS: GABAPENTIN 600MG Q8H DOSE PO SCH (20:34)
[2016-12-31 04:18] VITALS: BP 111/72; PULSE 80; TEMP 37.2; O2SAT 90
[2016-12-31 05:40] LABS: BASO % 1.1 %; BASO ABS # 0.08 K/uL (0-0.2); COMPLETE YES; EOS % 2.5 %; HEMATOCRIT 42.8 % (42-52); IG% 0.5 %; LYMPH ABS # 2.02 K/uL (1.2-3.4); MEAN CELL VOLUME 94.5 fL (80-100); MEAN CORPUSCULAR HEMOGLOBIN 32.5 pg (25-34); MEAN CORPUSCULAR HGB CONC 34.3 g/dl (32-36); MEAN PLATELET VOLUME 10.3 fL (7.4-10.4); MONO % 15.9 %; PLATELET COUNT 187 K/uL (130-400); RED BLOOD COUNT 4.53 M/uL (4.7-6.1); WHITE BLOOD COUNT 7.49 K/uL (4.8-10.8)
[2016-12-31] MEDS: GABAPENTIN 600MG Q8H DOSE PO SCH ×2 (05:40→08:15)
[2016-12-31 05:51] LABS: PARTIAL THROMBOPLASTIN RATIO 2.2
[2016-12-31 08:01] VITALS: BP 119/85; PULSE 89; TEMP 36.8; O2SAT 96
[2016-12-31] MEDS: THIAMINE HCL 100 MG TAB PO SCH (08:15)
[2016-12-31] MEDS: TRAMADOL HCL 50 MG TAB PO PRN (08:15)
[2016-12-31] MEDS: NICOTINE 14 MG/24 HR TDSY TD SCH (08:16)
[2016-12-31] MEDS: METOPROLOL TARTRATE 25 MG TAB PO SCH (08:16)
[2016-12-31] MEDS ORDERED: FLINTSTONES COMPLETE CHEWABLE TAB PO SCH (09:00)
--- NOTE | 2016-12-31 09:51 | Progress Note ---
Internal Med Progress Note Date of Service: Dec 31, 2016. Provider Documentation: SUBJECTIVE: The patient was sen and examined Unprovoked DVT and PE Complains of Chest pain on deep breathing Chest pain is better today Advised ambulation OBJECTIVE: Vital Signs-as noted below Exam: General-no distress at rest Eyes-normal ENT-normal Neck-supple Lungs-clear to auscultate bilaterally No pleural and or pericardial Rub Heart-Regular,no murmur appreciated Abdomen-Benign,no masses,bowel sound present Extremities-Trace edema Neuro-AAOx3 Lab data as noted below. ASSESSMENT & PLAN: Acute pulmonary Embolism with Acute Left Leg DVT No obvious provoking factor Only risk factor seems to be a smoker No Family H/O clot disorders Started on IV heparin Likely to go home on Eliquis Hypercoagulable W/U pending ECHO:: Normal LV chamber size with mild concentric LVH. * Normal LV systolic function, EF 55-60%. * No segmental left ventricular wall motion abnormalities are noted. * Grade II diastolic dysfunction. * The right ventricular cavity size is normal (basal dimension <4.2 cm in right ventricular apical 4-chamber view). * The right ventricular systolic function is normal as assessed by tricuspid annular plane systolic excursion (TAPSE) (normal >1.5 cm). * No significant valvular pathology. NO RV strain Discussed the risk and Benefit of Eliquis Likely to be discharged today HTN, Slightly elevated, Low l compliance w/ home BB, Anxiety contributory ETOH abuse as per records Ongoing tobacco abuse DT precautions Nicotine patch DVT prophylaxis. Heparin Full code Vital Signs: Date Time Temp Pulse Resp B/P (MAP) Pulse Ox O2 Delivery O2 Flow Rate FiO2 12/31/16 08:01 36.8 89 18 119/85 (96) 96 12/31/16 08:00 Room Air 12/31/16 04:18 37.2 80 17 111/72 (85) 90 Room Air 12/31/16 04:00 Room Air 12/30/16 23:59 Room Air 12/30/16 23:54 37.4 73 17 115/79 (91) 96 Room Air 12/30/16 20:00 94 Room Air 12/30/16 19:39 36.8 80 18 113/70 (84) 94 Room Air 12/30/16 16:00 Room Air 12/30/16 15:19 36.9 71 20 103/57 (72) 92 Room Air 12/30/16 12:00 Room Air 12/30/16 11:13 36.9 82 16 107/67 (80) 95 Room Air Lab Results: Results Past 24 Hours Test 12/30/16 13:08 12/31/16 04:52 Range/Units Activated Partial Thromboplast Time 50.8 56.5 21.0-31.0 SECONDS Partial Thromboplastin Ratio 2.0 2.2 White Blood Count 7.49 4.8-10.8 K/uL Red Blood Count 4.53 4.7-6.1 M/uL Hemoglobin 14.7 14.0-18.0 g/dL Hematocrit 42.8 42-52 % Mean Corpuscular Volume 94.5 80-100 fL Mean Corpuscular Hemoglobin 32.5 25-34 pg Mean Corpuscular Hemoglobin Concent 34.3 32-36 g/dl Platelet Count 187 130-400 K/uL Mean Platelet Volume 10.3 7.4-10.4 fL Neutrophils (%) (Auto) 53.0 % Lymphocytes (%) (Auto) 27.0 % Monocytes (%) (Auto) 15.9 % Eosinophils (%) (Auto) 2.5 % Basophils (%) (Auto) 1.1 % Neutrophils # (Auto) 3.97 1.4-6.5 K/uL Lymphocytes # (Auto) 2.02 1.2-3.4 K/uL Monocytes # (Auto) 1.19 0.11-0.59 K/uL Eosinophils # (Auto) 0.19 0-0.5 K/uL Basophils # (Auto) 0.08 0-0.2 K/uL RDW Standard Deviation 44.6 36.4-46.3 fL RDW Coefficient of Variation 12.9 11.5-14.5 % Immature Granulocyte % (Auto) 0.5 % Immature Granulocyte # (Auto) 0.04 0.00-0.02 K/uL
[2016-12-31 10:50] LABS: HEMATOCRIT 44.6 % (42-52); MEAN CELL VOLUME 93.9 fL (80-100); MEAN CORPUSCULAR HEMOGLOBIN 31.6 pg (25-34); MEAN CORPUSCULAR HGB CONC 33.6 g/dl (32-36); MEAN PLATELET VOLUME 10.7 fL (7.4-10.4); PLATELET COUNT 205 K/uL (130-400); RED BLOOD COUNT 4.75 M/uL (4.7-6.1); WHITE BLOOD COUNT 8.74 K/uL (4.8-10.8)
[2016-12-31 11:18] LABS: BUN/CREATININE RATIO 5.8 (10-20); CALCIUM 9.4 mg/dl (8.5-10.1); CREATININE 0.85 mg/dl (0.60-1.40); MAGNESIUM 2.1 mg/dl (1.8-2.4); POTASSIUM 3.8 mmol/L (3.5-5.1)
[2016-12-31 11:21] VITALS: BP 124/75; PULSE 77; TEMP 37.1; O2SAT 94
[2016-12-31 11:28] VITALS: BP 108/65; PULSE 76; TEMP 37.2; O2SAT 94
[2016-12-31] MEDS ORDERED: NICO14DI5 TD (13:58)
[2016-12-31] MEDS ORDERED: THM100 PO (13:58)
[2016-12-31] MEDS ORDERED: FLV1 PO (13:58)
[2016-12-31] MEDS ORDERED: ELQ25 PO (13:58)
[2016-12-31] MEDS ORDERED: APIXABAN 2.5 MG TAB PO ONE (14:00)
--- NOTE | 2016-12-31 14:03 | Discharge Instructions ---
Discharge Instructions Date of Service Dec 31, 2016. Admission Reason for Admission: Pulmonary Embolism Discharge Discharge Diagnosis / Problem: Pulmonary Embolisn,DVT Discharge Goals Goal(s): Prevent Disease Progression Activity Recommendations Activity Limitations: resume your previous activity (Take it easy for the next 2 weeks) . Instructions / Follow-Up Instructions / Follow-Up Dr Crowe (dr Delgadillo is away) on 01/04/17 at 9:25 AM. Current Hospital Diet Patient's current hospital diet: AHA Diet (Heart Healthy) Discharge Diet Recommended Diet: AHA Diet (Heart Healthy) Pending Studies Studies pending at discharge: yes List of pending studies: Hypercoagulability tests Laboratory Results Hemoglobin A1c Test 12/29/16 22:44 Range/Units Estimated Average Glucose 103 mg/dl Hemoglobin A1c 5.2 4.5-5.6 % Medical Emergencies . Who to Call and When: Medical Emergencies: If at any time you feel your situation is an emergency, please call 911 immediately. . Non-Emergent Contact Non-Emergency issues call your: Primary Care Provider . Past History Medical & Surgical History: (1) DVT (deep venous thrombosis) (2) Pulmonary embolism (3) Peripheral neuropathy (4) Abdominal pain . "Provider Documentation" section prepared by Corona Cornell. . VTE Core Measure Inpt VTE Proph given/why not?: Unfractionated heparin SQ (Equlis on discharge)
[2016-12-31 14:35] VITALS: BP 108/65; PULSE 76; TEMP 37.2; O2SAT 94
[2016-12-31] MEDS ORDERED: ULT50X PO (16:05)
[2016-12-31] MEDS ORDERED: GABAPENTIN 600MG Q12H DOSE PO SCH (21:00)
--- NOTE | 2017-01-01 07:48 | Discharge Summary ---
Discharge Summary Date of Service Jan 01, 2017. Discharge Summary Admission Date: Dec 30, 2016 at 00:07 Discharge Date: Dec 31, 2016 Discharge Disposition: Home Principal Diagnosis: Pulmonary Embolism,DVT Secondary Diagnoses/Problems: Please see H&P and Hospital Progress note Consultations: Cardiology Medication Reconciliation New Medications: Apixaban (Eliquis) 2.5 Mg Tab 10 MG PO TODAY@1400 for 1 Day, #1 TAB Folic Acid (Folic Acid) 1 Mg Tab 1 MG PO QAM for 30 Days, #30 TAB Nicotine (Nicoderm Cq 14MG Patch) 14 Mg/24 Hr Dis 1 PATCH TD QAM for 30 Days, #30 Thiamine HCl (Vitamin B-1) 100 Mg Tab 100 MG PO QAM for 30 Days, #30 TAB Tramadol HCl (Tramadol HCl) 50 Mg Tab 50 MG PO Q6H PRN for Pain for 10 Days, #30 TAB Continued Medications: Clonazepam (Klonopin) 1 Mg Tab 1 MG PO DAILY, TAB Fluticasone Propionate (Nasal) (Flonase Allergy Relief) 50 Mcg/Act Spr 2 SPRAYS NA DAILY PRN for Nasal Congestion Metoprolol Tartrate (Lopressor) (Lopressor) 25 Mg Tab 25 MG PO BID, TAB Omeprazole (Prilosec) 20 Mg Capcr 20 MG PO BID PRN for Heartburn, CAP Admission Information HPI (per Admitting provider): 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 Patient completed ceftriaxone treatment. Last week patient noted left calf discomfort. One day history of pleuritic right chest pain with shortness of breath, denies trauma. At the emergency room CT chest showed pulmonary embolism right. IV heparin started. Past Medical/Surgical History Medical Problems: (1) Bacterial meningitis Status: Resolved (2) Peripheral neuropathy Status: Chronic Social History Smoking Status: Current Every Day Smoker Alcohol Use: daily4 beers Drug Use: none Marital Status: Occupational Status: employed Immunizations History of Influenza Vaccine: No History of Tetanus Vaccine?: No History of Pneumococcal: No History of Hepatitis B Vaccine: No Multi-Drug Resistant Organisms History of MDRO: No Allergies Coded Allergies: No Known Allergies (Verified , 12/29/16) Home Medications Scheduled Clonazepam (Klonopin), 1 MG PO DAILY Metoprolol Tartrate (Lopressor) (Lopressor), 25 MG PO BID Scheduled PRN Fluticasone Propionate (Nasal) (Flonase Allergy Relief), 2 SPRAYS NA DAILY PRN for Nasal Congestion Omeprazole (Prilosec), 20 MG PO BID PRN for Heartburn Review of Systems as per HPI< all other ROS negative Physical Ex - H&P Physical Exam Vital Signs Date Time Temp Pulse Resp B/P (MAP) Pulse Ox O2 Delivery O2 Flow Rate FiO2 12/30/16 01:21 36.9 90 19 128/86 97 Room Air 12/30/16 00:55 36.9 94 18 131/100 96 12/30/16 00:34 94 18 131/100 96 Room Air 12/29/16 23:09 Room Air 12/29/16 23:09 96 Room Air 12/29/16 22:40 112 12/29/16 22:14 36.9 122 18 149/100 96 Room Air General Appearance: + pertinent finding (anxious) Head: normocephalic, + pertinent finding (partial alopecia) ENT: normal ENT inspection Neck: supple Respiratory/Chest: + decreased breath sounds, + pertinent finding (tenderness right chest wall) Cardiovascular: + tachycardia Abdomen/GI: soft Extremities/Musculoskelatal: + calf tenderness Neurologic/Psych: alert, + pertinent finding (no gross focality) Skin: normal color Diagnostics - H&P Diagnostics Laboratory Results Results Past 24 Hours Test 12/29/16 22:44 12/29/16 22:46 12/29/16 23:03 12/30/16 00:24 Range/Units White Blood Count 10.75 4.8-10.8 K/uL Red Blood Count 5.30 4.7-6.1 M/uL Hemoglobin 17.2 14.0-18.0 g/dL Hematocrit 48.3 42-52 % Mean Corpuscular Volume 91.1 80-100 fL Mean Corpuscular Hemoglobin 32.5 25-34 pg Mean Corpuscular Hemoglobin Concent 35.6 32-36 g/dl Platelet Count 207 130-400 K/uL Mean Platelet Volume 10.4 7.4-10.4 fL Neutrophils (%) (Auto) 69.9 % Lymphocytes (%) (Auto) 15.0 % Monocytes (%) (Auto) 13.7 % Eosinophils (%) (Auto) 0.7 % Basophils (%) (Auto) 0.3 % Neutrophils # (Auto) 7.53 1.4-6.5 K/uL Lymphocytes # (Auto) 1.61 1.2-3.4 K/uL Monocytes # (Auto) 1.47 0.11-0.59 K/uL Eosinophils # (Auto) 0.07 0-0.5 K/uL Basophils # (Auto) 0.03 0-0.2 K/uL RDW Standard Deviation 42.9 36.4-46.3 fL RDW Coefficient of Variation 12.9 11.5-14.5 % Immature Granulocyte % (Auto) 0.4 % Immature Granulocyte # (Auto) 0.04 0.00-0.02 K/uL Prothrombin Time 10.6 9.0-12.0 SECONDS Prothromb Time International Ratio 1.0 0.9-1.1 Activated Partial Thromboplast Time 28.7 21.0-31.0 SECONDS Partial Thromboplastin Ratio 1.1 Sodium Level 137 136-145 mmol/L Potassium Level 3.8 3.5-5.1 mmol/L Chloride Level 104 98-107 mmol/L Carbon Dioxide Level 23 21-32 mmol/L Anion Gap 10.0 19.0 16-25 mmol/L Blood Urea Nitrogen 8 7-18 mg/dl Creatinine 1.00 0.60-1.40 mg/dl Est Creatinine Clear Calc Drug Dose 102.1 ml/min Estimated GFR () 107.9 Estimated GFR (Non- 93.1 BUN/Creatinine Ratio 7.5 10-20 Random Glucose 145 70-99 mg/dl Calcium Level 9.3 8.5-10.1 mg/dl Magnesium Level 2.0 1.8-2.4 mg/dl Total Bilirubin 0.7 0.2-1 mg/dl Direct Bilirubin 0.2 0-0.2 mg/dl Aspartate Amino Transf (AST/SGOT) 32 15-37 U/L Alanine Aminotransferase (ALT/SGPT) 93 12-78 U/L Alkaline Phosphatase 95 45-117 U/L Total Creatine Kinase 53 39-308 U/L Troponin I < 0.015 0-0.045 ng/ml Total Protein 8.2 6.4-8.2 gm/dl Albumin 3.9 3.4-5.0 gm/dl Lipase 187 73-393 U/L Hepatitis B Surface Antigen NEG NEG Hepatitis C Antibody NEG NEG Bedside Hemoglobin 16.0 14.0-18.0 g/dl Bedside Hematocrit 47 42-52 % Bedside Sodium 137 135-144 mEq/L Bedside Potassium 3.8 3.3-5.0 mEq/L Bedside Chloride 101 101-112 mEq/L Bedside Total CO2 22 24-31 mEq/l Bedside Blood Urea Nitrogen 6 7-18 mg/dl Bedside Creatinine 0.8 0.6-1.3 mg/dl Bedside Glucose (other) 152 70-99 mg/dl Bedside Ionized Calcium (Raul) 1.15 1.12-1.32 mmol/l Bedside D-Dimer > 450 0-450 ng/mlFEU Bedside Troponin I < 0.030 0-0.045 ng/ml Diagnostic Radiology CT chest initial read : Pulmonary emboli right, no right heart strain EKG As per my interpretation normal sinus rhythm no ischemia Impression - H&P Impression Assessment and Plan AP Acute pulmonary thromboembolism no obvious provoking factor for now HTN, slightly elevated, px admits to partial compliance w/ home BB, anxiety contributory ETOH abuse as per records ongoing tobacco abuse PCU IV heparin for now Defer discussion reqarding choice for oral agent for anticoag to AM provider and px. facilitate home BB anxiolytic prn DT precautions nicotine patch DVT prophylaxis. Heparin Full code Advanced Directives Existing Living Will: No Existing Power of Gun Perforator Loader: No VTE Prophylaxis VTE Risk Assessment Done? Y/N: Yes Risk Level: High Physical Exam (per Admitting): General Appearance: + pertinent finding (anxious) Head: normocephalic, + pertinent finding (partial alopecia) ENT: normal ENT inspection Neck: supple Respiratory/Chest: + decreased breath sounds, + pertinent finding ( tenderness right chest wall) Cardiovascular: + tachycardia Abdomen/GI: soft Extremities/Musculoskelatal: + calf tenderness Neurologic/Psych: alert, + pertinent finding (no gross focality) Skin: normal color Hospital Course Acute pulmonary Embolism with Acute Left Leg DVT No obvious provoking factor Only risk factor seems to be a smoker No Family H/O clot disorders Started on IV heparin Likely to go home on Eliquis Hypercoagulable W/U pending ECHO:: Normal LV chamber size with mild concentric LVH. * Normal LV systolic function, EF 55-60%. * No segmental left ventricular wall motion abnormalities are noted. * Grade II diastolic dysfunction. * The right ventricular cavity size is normal (basal dimension <4.2 cm in right ventricular apical 4-chamber view). * The right ventricular systolic function is normal as assessed by tricuspid annular plane systolic excursion (TAPSE) (normal >1.5 cm). * No significant valvular pathology. NO RV strain Discussed the risk and Benefit of Eliquis Likely to be discharged today HTN, Slightly elevated, Low l compliance w/ home BB, Anxiety contributory ETOH abuse as per records Ongoing tobacco abuse DT precautions Nicotine patch DVT prophylaxis. Heparin Full code Total time spent on discharge = 35 minutes This includes examination of the patient, discharge planning, medication reconciliation, and communication with other providers. Discharge Instructions Date of Service Dec 31, 2016. Admission Reason for Admission: Pulmonary Embolism Discharge Discharge Diagnosis / Problem: Pulmonary Embolisn,DVT Discharge Goals Goal(s): Prevent Disease Progression Activity Recommendations Activity Limitations: resume your previous activity (Take it easy for the next 2 weeks) . Instructions / Follow-Up Instructions / Follow-Up Dr Crowe (dr Delgadillo is away) on 01/04/17 at 9:25 AM. Current Hospital Diet Patient's current hospital diet: AHA Diet (Heart Healthy) Discharge Diet Recommended Diet: AHA Diet (Heart Healthy) Pending Studies Studies pending at discharge: yes List of pending studies: Hypercoagulability tests Laboratory Results Hemoglobin A1c Test 12/29/16 22:44 Range/Units Estimated Average Glucose 103 mg/dl Hemoglobin A1c 5.2 4.5-5.6 % Medical Emergencies . Who to Call and When: Medical Emergencies: If at any time you feel your situation is an emergency, please call 911 immediately. . Non-Emergent Contact Non-Emergency issues call your: Primary Care Provider . Past History Medical & Surgical History: (1) DVT (deep venous thrombosis) (2) Pulmonary embolism (3) Peripheral neuropathy (4) Abdominal pain . "Provider Documentation" section prepared by Corona Cornell. . VTE Core Measure Inpt VTE Proph given/why not?: Unfractionated heparin SQ (Equlis on discharge) <Electronically signed by Corona Cornell M.D.> Signed: 12/31/16 6430 Additional Copies To Karely Delgadillo M.D. (MEDICAL)
[2017-01-02] MEDS ORDERED: GABAPENTIN 600MG X1 DOSE PO SCH (09:00)
[2017-01-03 17:35] LABS: ANTITHROMBINIII ACTIVITY** 81 % activity (80-120); B2 GLYCOPROTEIN IGA <9 SAU (<=20); B2 GLYCOPROTEIN IGG <9 SGU (<=20); B2 GLYCOPROTEIN IGM <9 SMU (<=20); LUPUS ANTICOAGULANT** TC36573X Negative (Negative); PROTEIN C ACTIVITY** TC 1777X 58 % (70-180); PROTEIN S ACT(FUNCT)**1779X 106 % (70-150)
== END 2016-12-31 16:21 | disposition home or self-care (01) | DRG 176 ==
LOC: C.EDB 22:13 → C.2T 12-30 00:07 → ENRESERV 12-30 00:42
PROVIDERS: ADMIT Hospitalist; ATTEND Internal Medicine
DX: I26.99 Other pulmonary embolism without acute cor pulmonale (principal); I82.402 Acute embolism and thrombosis of unspecified deep veins of left lower extremity; F17.210 Nicotine dependence, cigarettes, uncomplicated; G62.9 Polyneuropathy, unspecified; Z86.19 Personal history of other infectious and parasitic diseases; Z72.89 Other problems related to lifestyle; Z79.899 Other long term (current) drug therapy

== ENCOUNTER 2017-07-30 21:41 | Emergency (ER) | payer OTHER ==
[~2017-07-30] VITALS: Ht 172.7 cm; Wt 84.4 kg
[~2017-07-30 21:41] MED LIST changes: +ELQ25 PO; -FLUT0.15; +FLUT0.15 NAE; +FLV1 PO; +NICO14DI5 TD; +THM100 PO; +ULT50X PO
[2017-07-30 21:45] VITALS: TEMP 36.7; Ht 172.7 cm; Wt 84.4 kg
--- NOTE | 2017-07-30 21:54 | EMERGENCY ROOM VISIT NOTE ---
History Report prepared by Peterson: Maged Ng Under the Supervision of: Dr. Saravanan Degroot M.D. First contact with patient: 21:44 Chief Complaint: FALL Stated Complaint: ETOH, FALL, LACERATION TO EYEBROW History of Present Illness HPI is limited due to an altered mental status secondary to alcohol intoxication. The patient is a 41 year old male who presents to the Emergency Room via EMS due to a recent fall. EMS states that the patient fell on the ground, but denies remembering the fall. EMS adds that the patient denies losing consciousness. Patient adds that he currently takes Eliquis. He states he has a history of blood clots in his lower extremities. Source of History: patient, EMS History Limited By: AMS (Secondary to alcohol intoxication) Review of Systems ROS is limited due to an altered mental status secondary to alcohol intoxication. Past Medical & Surgical Medical Problems: (1) Bacterial meningitis (2) DVT (deep venous thrombosis) (3) Peripheral neuropathy (4) Pulmonary embolism Family History FH: heart disease Social History Smoking Status: Current Every Day Smoker Drug Use: none Marital Status: Housing Status: lives with family Occupation Status: employed Current/Historical Medications Scheduled Apixaban (Eliquis), 5 MG PO BID Fluticasone Propionate (Nasal) (Flonase Allergy Relief), 2 SPRAYS BRITTANI DAILY Metoprolol Tartrate (Lopressor) (Lopressor), 25 MG PO BID Scheduled PRN Clonazepam (Klonopin), 1 MG PO HS PRN for Anxiety Metronidazole (Topical) (Metronidazole), 1 APPLN TOP BID PRN for Rosacea Allergies Coded Allergies: No Known Allergies (Verified , 12/29/16) Physical Exam Vital Signs Date Time Temp Pulse Resp B/P (MAP) Pulse Ox O2 Delivery O2 Flow Rate FiO2 07/30/17 23:45 113 16 140/97 96 Room Air 07/30/17 21:45 36.7 108 18 145/103 97 Room Air Physical Exam GENERAL: Patient is a healthy-appearing well-nourished male. Patient smells strongly of alcohol HEAD: Superficial lacerations to right side of forehead. Right side contusion 2in by 2in to right side of head EYES: Ocular movements intact pupils equal and react to light. Conjunctiva are injected OROPHARYNX mucous membranes are moist no exudates present no erythema or edema present NECK: Supple no nuchal rigidity CHEST: Good equal expansion LUNGS: Clear and equal to auscultation CARDIAC: Normal S1 and S2 ABDOMEN: Soft nontender no guarding BACK: No CVA tenderness EXTREMITIES: No pain upon palpation normal muscle strength in all groups no clubbing cyanosis or edema NEURO: Patient is following commands and answering questions appropriately. Alert and oriented x3 Cranial Nerves 2-12 grossly intact Medical Decision & Procedures ER Provider Diagnostic Interpretation: Radiology results as stated below per my review and radiologist interpretation: HEAD CT NONCONTRAST CT DOSE: 912.18 mGy.cm HISTORY: Fall. Head injury. pt on SUSANNAH lepe TECHNIQUE: Multiaxial CT images of the head were performed without the use of intravenous contrast. Automated exposure control was utilized for this study. A dose lowering technique was utilized adhering to the principles of ALARA. Comparison: Head CT 02/01/2007. Findings: The paranasal sinuses and mastoid air cells are clear. The calvarium and skull base are intact. The ventricles and sulci are within normal limits. There is no mass, hematoma, midline shift, or acute infarct. Right periorbital soft tissue laceration. Impression: No acute intracranial abnormality. Right periorbital soft tissue laceration. Electronically signed by: Fabio Verma M.D. 07/30/2017 10:27 PM Laboratory Results 07/30/17 22:07 Test 07/30/17 22:07 Anion Gap 3.0 mmol/L (3-11) Est Creatinine Clear Calc Drug Dose 116.9 ml/min Estimated GFR () 123.7 Estimated GFR (Non- 106.7 BUN/Creatinine Ratio 5.9 (10-20) Calcium Level 9.1 mg/dl (8.5-10.1) Ethyl Alcohol mg/dL 413.5 mg/dl (0-3) Labs reviewed by ED physician. ED Course 2153: Past medical records reviewed. The patient was evaluated in room C3. A complete history and physical examination was performed. 0015: Upon reexamination the patient is resting comfortably. I discussed results and treatment plan with the patient. He verbalizes agreement and understanding. The patient is ready for discharge. Medical Decision Differential diagnosis: Etiologies such as fracture, dislocation, intra-abdominal, pneumothorax, intrathoracic , intracranial, neurologic, as well as other traumatic pathologies were entertained. This is a 41-year-old male who presents emergency part complaining of being knocked unconscious. The patient has been drinking alcohol this evening. He is belligerent and uncooperative emergency department. He was sent for CAT scan of the head. The patient will not allow me to close the lacerations on his face. CAT scan head does not show any acute bleeding. The patient contacted his ex- and I had a lengthy conversation with her over concerns that the patient is on an anticoagulant. Patient develops any severe vomiting loss of consciousness or loss of coordination she will immediately bring him back to the emergency department. Medication Reconcilliation Current Medication List: was personally reviewed by me Blood Pressure Screening Patient's blood pressure: Elevated blood pressure Blood pressure disposition: Referred to PCP Impression Primary Impression: Head injury Additional Impression: Alcohol intoxication Scribe Attestation The scribe's documentation has been prepared under my direction and personally reviewed by me in its entirety. I confirm that the note above accurately reflects all work, treatment, procedures, and medical decision making performed by me. Departure Information Dispostion Home / Self-Care Referrals Karely Delgadillo M.D. (MEDICAL) (PCP) Forms HOME CARE DOCUMENTATION FORM, IMPORTANT VISIT INFORMATION Patient Instructions Alcohol Intoxication - [facility], ED Head Injury Closed, [facility] Additional Instructions SARAHY = .413 Increase fluids next 48 hours NEEDS to return immediately if he develops any of the following symptoms: Projectile vomiting Loss of consciousness Loss of coordination You have been examined and treated today on an emergency basis only. This is not a substitute for, or an effort to provide, complete comprehensive medical care. It is impossible to recognize and treat all injuries or illnesses in a single emergency department visit. It is therefore important that you follow up closely with [facility]. Call as soon as possible for an appointment. Thank you for your time and consideration. I look forward to speaking with you again soon. Please don't hesitate to call us if you have any questions. Problem Qualifiers Primary Impression: Head injury Encounter type: initial encounter Qualified Codes: S09.90XA - Unspecified injury of head, initial encounter Additional Impression: Alcohol intoxication Complication of substance-induced condition: uncomplicated Qualified Codes: F10.920 - Alcohol use, unspecified with intoxication, uncomplicated
[2017-07-30] MEDS ORDERED: APIX1TAB3 PO (22:22)
[2017-07-30] MEDS ORDERED: METR0.7536 TOP (22:22)
--- NOTE | 2017-07-30 22:29 | DIAGNOSTIC IMAGING REPORT ---
HEAD CT NONCONTRAST CT DOSE: 912.18 mGy.cm HISTORY: Fall. Head injury. pt on SUSANNAH lepe TECHNIQUE: Multiaxial CT images of the head were performed without the use of intravenous contrast. Automated exposure control was utilized for this study. A dose lowering technique was utilized adhering to the principles of ALARA. Comparison: Head CT 02/01/2007. Findings: The paranasal sinuses and mastoid air cells are clear. The calvarium and skull base are intact. The ventricles and sulci are within normal limits. There is no mass, hematoma, midline shift, or acute infarct. Right periorbital soft tissue laceration. Impression: No acute intracranial abnormality. Right periorbital soft tissue laceration. Electronically signed by: Fabio Verma M.D. 07/30/2017 10:27 PM Dictated Date/Time: 07/30/2017 10:23 PM
[2017-07-30 22:46] LABS: CALCIUM 9.1 mg/dl (8.5-10.1); CREATININE 0.88 mg/dl (0.60-1.40); POTASSIUM 5.2 mmol/L (3.5-5.1)
[2017-07-30 23:45] VITALS: BP 140/97; PULSE 113; O2SAT 96
== END 2017-07-31 00:10 | disposition home or self-care (01) ==
LOC: EDBD 21:41 → C.EDC 21:43
DX: S09.90XA Unspecified injury of head, initial encounter (principal); W19.XXXA Unspecified fall, initial encounter; Y92.9 Unspecified place or not applicable; F10.920 Alcohol use, unspecified with intoxication, uncomplicated; Z86.61 Personal history of infections of the central nervous system; Z86.718 Personal history of other venous thrombosis and embolism; Z86.711 Personal history of pulmonary embolism; F17.210 Nicotine dependence, cigarettes, uncomplicated; Z82.49 Family history of ischemic heart disease and other diseases of the circulatory system; Z79.01 Long term (current) use of anticoagulants; Z79.899 Other long term (current) drug therapy

== ENCOUNTER 2018-02-03 21:49 | Emergency (ER) | payer OTHER ==
[~2018-02-03] VITALS: Ht 172.7 cm; Wt 70.6 kg
[~2018-02-03 21:49] MED LIST changes: +APIX1TAB3 PO; -CLON1TAB3 PO; +CLON1TAB5 PO; -ELQ25 PO; -FLV1 PO; +METR0.7536 TOP; -NICO14DI5 TD; -PRLSR20 PO; -THM100 PO; -ULT50X PO
[2018-02-03 21:54] VITALS: TEMP 36.9; Ht 172.7 cm; Wt 70.6 kg
--- NOTE | 2018-02-03 22:42 | EMERGENCY ROOM VISIT NOTE ---
History Report prepared by Peterson: Cristy Ortega Under the Supervision of: Dr. Marcelino Hilario M.D. First contact with patient: 22:22 Chief Complaint: MENTAL HEALTH EVALUATION Stated Complaint: BATH SALTS History of Present Illness The patient is a 42 year old male who presents to the Emergency Room with complaints of an episode of a need for a mental health evaluation beginning today. The patient states that he took some bath salts and drank a few beers today. The patient reports that he later went to his sister's house where the police was waiting for him. The patient states that the police accused the patient of killing someone, but the patient denies doing so. The patient reports a history of anxiety, but he states that he has not been trying to hurt himself or anyone else. He notes that he was running away from his brother, father, and friend because he claims they were trying to get his money. He denies falling, getting beaten up, or having any other medical problems. The patient also notes he does not take any drugs besides bath salts. Source of History: patient Onset: today Position: head Quality: other (mental health evaluation) Timing: other (episode) Associated Symptoms: No fevers Note: denies: homicidal ideation, suicidal ideation Review of Systems See HPI for pertinent positives & negatives. A total of 10 systems reviewed and were otherwise negative. Past Medical & Surgical Medical Problems: (1) Anxiety (2) Bacterial meningitis (3) DVT (deep venous thrombosis) (4) Peripheral neuropathy (5) Pulmonary embolism Old medical records were reviewed. Nurse's notes were reviewed and I agree with. Family History FH: heart disease Social History Smoking Status: Current Every Day Smoker Alcohol Use: heavy Drug Use: none Marital Status: Housing Status: lives with family Occupation Status: employed Current/Historical Medications No Active Prescriptions or Reported Meds Allergies Coded Allergies: No Known Allergies (Verified , 02/03/18) Physical Exam Vital Signs Date Time Temp Pulse Resp B/P (MAP) Pulse Ox O2 Delivery O2 Flow Rate FiO2 02/04/18 01:41 89 18 125/81 98 02/03/18 21:54 36.9 120 20 141/101 96 Room Air Physical Exam General: Well developed well nourished non ill-appearing male in no acute distress, breathing comfortably on room air. Normal speech HEENT: Normal cephalic atraumatic. Pupils are equal round and reactive to light. Extraocular movements are intact. Oropharynx is pink with moist mucous membranes. No swelling of the mouth lips or tongue. Neck: Supple with a midline trachea. No meningeal signs or stiffness, no JVD or bruits. No Stridor. Chest: Clear to auscultation bilaterally. No wheezes or rhonchi. No increased work of breathing. Heart: regular rate and rhythm. Abdomen: Soft nontender, nondistended without rebound guarding or rigidity. Extremities: No cyanosis clubbing or edema. No calf tenderness or assymetry Spine/Back. Non tender to palpation. No CVA tenderness Skin: Good turgor without rashes. Neurologic exam: Cranial nerves two through 12 are intact. Motor and sensation are intact and symmetrical throughout. Answering questions appropriately. Normal thought process and affect. Denies homicidal or suicidal ideations. Medical Decision & Procedures Laboratory Results 02/03/18 22:58 Red Blood Count 5.03, Mean Corpuscular Volume 91.1, Mean Corpuscular Hemoglobin 32.4, Mean Corpuscular Hemoglobin Concent 35.6, Mean Platelet Volume 9.9, Neutrophils (%) (Auto) 75.7, Lymphocytes (%) (Auto) 14.0, Monocytes (%) (Auto) 9.5, Eosinophils (%) (Auto) 0.2, Basophils (%) (Auto) 0.4, Neutrophils # (Auto) 8.47, Lymphocytes # (Auto) 1.56, Monocytes # (Auto) 1.06, Eosinophils # (Auto) 0.02, Basophils # (Auto) 0.04 02/03/18 22:58 Test 02/03/18 22:12 02/03/18 22:58 Urine Opiates Screen NEG (NEG) Urine Methadone, Qualitative NEG (NEG) Urine Barbiturates NEG (NEG) Urine Phencyclidine (PCP) Level NEG (NEG) Ur Amphetamine/Methamphetamine POS (NEG) MDMA (Ecstasy) Screen POS (NEG) Urine Benzodiazepines Screen NEG (NEG) Urine Cocaine Metabolite NEG (NEG) Urine Marijuana (THC) POS (NEG) White Blood Count 11.17 K/uL (4.8-10.8) Red Blood Count 5.03 M/uL (4.7-6.1) Hemoglobin 16.3 g/dL (14.0-18.0) Hematocrit 45.8 % (42-52) Mean Corpuscular Volume 91.1 fL (80-100) Mean Corpuscular Hemoglobin 32.4 pg (25-34) Mean Corpuscular Hemoglobin Concent 35.6 g/dl (32-36) Platelet Count 235 K/uL (130-400) Mean Platelet Volume 9.9 fL (7.4-10.4) Neutrophils (%) (Auto) 75.7 % Lymphocytes (%) (Auto) 14.0 % Monocytes (%) (Auto) 9.5 % Eosinophils (%) (Auto) 0.2 % Basophils (%) (Auto) 0.4 % Neutrophils # (Auto) 8.47 K/uL (1.4-6.5) Lymphocytes # (Auto) 1.56 K/uL (1.2-3.4) Monocytes # (Auto) 1.06 K/uL (0.11-0.59) Eosinophils # (Auto) 0.02 K/uL (0-0.5) Basophils # (Auto) 0.04 K/uL (0-0.2) RDW Standard Deviation 41.6 fL (36.4-46.3) RDW Coefficient of Variation 12.5 % (11.5-14.5) Immature Granulocyte % (Auto) 0.2 % Immature Granulocyte # (Auto) 0.02 K/uL (0.00-0.02) Anion Gap 9.0 mmol/L (3-11) Est Creatinine Clear Calc Drug Dose 82.4 ml/min Estimated GFR () 92.4 Estimated GFR (Non- 79.7 BUN/Creatinine Ratio 8.6 (10-20) Calcium Level 9.0 mg/dl (8.5-10.1) Total Bilirubin 0.6 mg/dl (0.2-1) Direct Bilirubin 0.2 mg/dl (0-0.2) Aspartate Amino Transf (AST/SGOT) 30 U/L (15-37) Alanine Aminotransferase (ALT/SGPT) 37 U/L (12-78) Alkaline Phosphatase 76 U/L (45-117) Total Protein 7.4 gm/dl (6.4-8.2) Albumin 4.0 gm/dl (3.4-5.0) Lipase 87 U/L (73-393) Thyroid Stimulating Hormone (TSH) 2.220 uIu/ml (0.300-4.500) Salicylates Level < 1.7 mg/dl (2.8-20) Acetaminophen Level < 2 ug/ml (10-30) Ethyl Alcohol mg/dL < 3.0 mg/dl (0-3) Laboratory studies as stated above per my review. ED Course 2224: Past medical records reviewed. The patient was evaluated in room A5, and a complete history and physical examination were performed. 2348: I checked on the patient and the patient is stable. 0103: Upon reevaluation, the patient is stable. I discussed the results and treatment plan with him. He verbalized agreement of the treatment plan. The patient was discharged home. Medical Decision Differentials include, but are not limited to; substance abuse, toxicological, anxiety, depression. This patient comes in as described above he was drinking alcohol use bath salts and apparently got very anxious and paranoid. he is feeling better now .he denies suicidal or homicidal. He has remained cooperative. Blood work was obtained as well as urine for medical clearance. he was medically cleared he was seen by our psychiatric casey saw operator, she feels that he is safe to go home and I agree. He will be discharged home. He was encouraged to avoid alcohol and drugs. He will return if: worsening of symptoms, thoughts of self, increasing pain, any new problems or concerns. Medication Reconcilliation Current Medication List: was personally reviewed by me Blood Pressure Screening Patient's blood pressure: Elevated blood pressure Blood pressure disposition: Elevated BP felt to be situational Impression Primary Impression: Anxiety Additional Impression: Substance abuse Scribe Attestation The scribe's documentation has been prepared under my direction and personally reviewed by me in its entirety. I confirm that the note above accurately reflects all work, treatment, procedures, and medical decision making performed by me. Departure Information Dispostion Home / Self-Care Prescriptions No Active Prescriptions or Reported Meds Referrals No Doctor, Assigned (PCP) Forms HOME CARE DOCUMENTATION FORM, IMPORTANT VISIT INFORMATION Patient Instructions My [facility] Additional Instructions Rest. Drink plenty of fluids. Do not use any more alcohol or street drugs or bath salts Return if: Worsening of symptoms, thoughts of hurting herself or others, any new problems or concerns Follow-up with your doctor tomorrow for recheck Problem Qualifiers
[2018-02-03 23:10] LABS: BASO % 0.4 %; BASO ABS # 0.04 K/uL (0-0.2); EOS % 0.2 %; EOS ABS # 0.02 K/uL (0-0.5); HEMATOCRIT 45.8 % (42-52); HEMOGLOBIN 16.3 g/dL (14.0-18.0); IG# 0.02 K/uL (0.00-0.02); LYMPH ABS # 1.56 K/uL (1.2-3.4); MEAN CELL VOLUME 91.1 fL (80-100); MEAN CORPUSCULAR HEMOGLOBIN 32.4 pg (25-34); MEAN CORPUSCULAR HGB CONC 35.6 g/dl (32-36); MEAN PLATELET VOLUME 9.9 fL (7.4-10.4); MONO % 9.5 %; MONO ABS # 1.06 K/uL (0.11-0.59); NEUT % 75.7 %; NEUT ABS # 8.47 K/uL (1.4-6.5); PLATELET COUNT 235 K/uL (130-400); RED CELL DISTRIBUTION WIDTH CV 12.5 % (11.5-14.5); RED CELL DISTRIBUTION WIDTH SD 41.6 fL (36.4-46.3); WHITE BLOOD COUNT 11.17 K/uL (4.8-10.8)
[2018-02-03 23:42] LABS: CREATININE 1.13 mg/dl (0.60-1.40); POTASSIUM 3.9 mmol/L (3.5-5.1); TOTAL PROTEIN 7.4 gm/dl (6.4-8.2)
[2018-02-04 01:41] VITALS: BP 125/81; PULSE 89; O2SAT 98
== END 2018-02-04 01:43 | disposition home or self-care (01) ==
LOC: C.EDB 21:49 → C.EDA 02-04 01:43
DX: F41.9 Anxiety disorder, unspecified (principal); F19.129 Other psychoactive substance abuse with intoxication, unspecified; Z86.711 Personal history of pulmonary embolism; Z86.718 Personal history of other venous thrombosis and embolism; F17.200 Nicotine dependence, unspecified, uncomplicated

== ENCOUNTER 2023-10-18 03:36 | Inpatient (IN) ==
--- OUTSIDE RECORDS SUMMARY | 2023-10-18 03:42 | External Medical Summary | Summary of Care ---
Author Name Unknown Organization [facility] Address [address] [place] [address] Phone [phone] Care Team Providers Care Parts Product Analyst Name Role Phone Malina Falcon DO Primary Care Provider [phone] Reason for Referral * Ancillary Services (Within 10 days (routine)) - Authorized Specialty Diagnoses / Procedures Referred By Desirae jamison Referred To Contact Audiology Diagnoses Mixed conductive and sensorineural hearing loss of both ears Malina Falcon DO [address] [place] [address] Referral ID Status Reason Start Date Expiration Date Visits Requested Visits Authorized [id number] Authorized Ancillary Services Required 08/16/2023 999 999 Question Answer Referral Priority Within 10 days (routine) Where should this appointment be scheduled? [facility] Reason for Referral: Hearing Loss Is this sudden hearing loss or post chemotherapy hearing loss? No Reason for Visit * Reason Onset Date Comments Referral 08/16/2023 Encounter Details Date Type Department Care Team (Late st Contact Info) Description 08/16/2023 Telephone [facility] [address] [place] [address] Malina Falcon DO [address], [place] [id number] Referral Allergies No known active allergiesdocumented as of this encounter (statuses as of 09/27/2023) Medications Medication Sig Dispensed Refills Start Date End Date Status Prazosin HCl 1 MG Oral Capsule (Minipress) Take 1 capsule in the morning and 3 capsules at night for PTSD 360 Capsule 1 06/18/2023 Active FLUoxetine HCl 40 MG Oral Capsule (PROzac) Take 2 Capsules by mouth in the morning. 180 Capsule 1 06/18/2023 Active OLANZapine 5 MG Oral Tablet (ZyPREXA) Take 1 Tablet by mouth every morning. 90 Tablet 1 06/18/2023 Active OLANZapine 20 MG Oral Tablet (ZyPREXA)Indication s:PTSD (post-traumatic stress disorder) Take 1 Tablet by mouth at bedtime. 90 Tablet 1 07/15/2023 Active clonazePAM 0.5 MG Oral Tablet (KlonoPIN) Take 1 Tablet by mouth 3 times a day as needed for Anxiety. 270 Tablet 0 07/16/2023 Active Gabapentin 600 MG Oral Tablet (Neurontin) Take 1 Tablet by mouth in the morning and 1 Tablet before bedtime. 180 Tablet 1 07/16/2023 Active documented as of this encounter (statuses as of 09/27/2023) Active Problems Problem Noted Date Diagnosed Date Bipolar disorder 09/07/2023 Major depressive disorder, single episode, moder ate 09/07/2023 Paranoia 09/07/2023 Incisional hernia without obstruction or gangren e 05/05/2022 PTSD (post-traumatic stress disorder) 06/02/2021 Agoraphobia with panic disorder 06/02/2021 Food insecurity 02/10/2021 Overview: Per [facility] Protocol History of pulmonary embolism 12/15/2018 Alcohol ingestion, 1-4 drinks per day 09/01/2016 MEDICATION USE AGREEMENT 09/01/2016 Overview: 09/01/16 Anxiety state 08/11/2016 GERD (gastroesophageal reflux disease) 4 HTN, goal below 140/90 documented as of this encounter (statuses as of 09/27/2023) Resolved Problems Problem Noted Date Diagnosed Date Resolved Date MEDICATION USE AGREEMENT 09/01/2016 INFORMATION 09/01/2016 12/31/2016 Overview: 10 year cardiovascular risk 1% Viral URI 04/30/2014 07/03/2015 Overweight (BMI 25.0-29.9) 07/31/2013 0 12/31/2016 Overview: bmi= 26.37 07/31/13 Acute pharyngitis 01/30/2013 07/03/2015 Right nasal polyps 01/30/2013 7 Chronic rhinitis 01/30/2013 12/31/2016 Dysfunction of eustachian tube 01/30/2013 12/31/2016 Chews tobacco 01/26/2013 12/25/2014 Influenza-like illness 08/02/201207/03 Cough 08/02/2012 07/03/2015 Screening for cardiovascular condition 06/06/2012 07/03/2015 Need for pneumococcal vaccination 03/03/2012 07/03/2015 Shakiness 01/01/2012 07/03/2015 Tachycardia 01/01/2012 07/03/2015 Abdominal pain, epigastric 01/01/2012 1 Dyspepsia and disorder of function of stomach 01/01/20 12 07/03/2015 Tobacco use disorder 01/01/2012 015 Alcohol dependence, continuous 01/01/2012 09/01/2016 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 NEUROPATHY, PRESSURE-TYPE, BOTH WRISTS/THUMBS 04/11/20 02 07/03/2015 documented as of this encounter (statuses as of 09/27/2023) Immunizations Name Administration Dates Next Due Covid-19 Ad26, Single Dose (Maral/J&J) 021 documented as of this encounter Social History Tobacco Use Types Packs/Day Years Used Date Smoking Tobacco: Every Day Cigarettes 0.5 24 Started: 07/12/1989; Last attempted to quit: 07/12/2013 Smokeless Tobacco: Current Snuff Comments:began at age 12; 1 can every 3 days-- last tried to quit 15 years ago Alcohol Use Standard Drinks/Week Comments Yes 0 (1 standard drink = 0.6 oz pure alcohol) 1-2 beers per night; 6 or so on weekend days PHQ-2 Answer Date Recorded PHQ Adult Total Score 6 04/28/2023 Hunger Vital Sign Answer Date Recorded Within the past 12 months, y ou worried that your food would run out before you got the money to buy more. Sometimes true Within the past 12 months, t he food you bought just didn't last and you didn't have money to get more. Sometimes true Sex and Gender Information Value Date Recorded Sex Assigned at Male 10/27/2018 9:29 AM EDT Gender Identity Male 10/27/2018 9:29 AM EDT Sexual Orientation Straight 10/27/2018 9: 29 AM EDT Job Start Date Occupation Industry Not on file Not on file Not on file documented as of this encounter Miscellaneous Notes * Telephone Encounter - Ella Alvarado OSA - 09/27/2023 12:41 PM EDT Patient has been notified of the message. Patient has no further questions. Pt has next [facility] audiology appt on 11/12/23. * Telephone Encounter - Gertrudis Egan OSA - 08/17/2023 10:17 AM EST Backdated and faxed. 08/17/2023 * Telephone Encounter - Yesenia Lucas CCMA - 08/16/2023 1:31 PM EST Pt needs a referral to audiology. * Telephone Encounter - Stacy Rivera OSA - 08/16/2023 12:21 PM EST Has the patient been seen for this problem? (Y/N)?: yes If No, an appt needs to be scheduled before a referral will be placed (exception: proceed with referral request if referral request is for a yearly routine appointment with speciality) Patient Name: Ez Zuniga Patient Primary care provider: Malina Falcon, DO Does this need to be an insurance referral (Y/N)?: n If Yes, does the insurance referral need to be placed into the [employer] system? Name of preferred specialist: Type of specialist: audiology Location of specialist: [facility] Specialist's Phone #: [phone] opt 1 Specialist's Fax #: [phone] Reason for visit: B/L mixed hearing loss Date of visit: needs to be back dated for 08-11-23 documented in this encounter Plan of Treatment Upcoming Encounters Date Type Department Care Team (Late st Contact Info) Description 10/05/2023 10:00 AM EDT Telemedicine [facility] [address] [place] [address] Malina Parrish MD [address] [place] [address] 03/13/2024 7:40 AM EDT Office Visit [facility] [address] [place] [address] Yunior Esteves MD [address] [place] [address] Scheduled Referrals Name Type Priority Associated Diagnoses Orde r Schedule AUDIOLOGY REFERRAL OP Referral Within 10 days (routine) Mixed conductive and sensorineural hearing loss of both ears Ordered: 08/16/2023 Health Maintenance Due Date Last Done Comments Pneumococcal Vaccine: Pediatrics (0 to 5 Years) and At-Risk Patients (6 to 64 Years) (1 of 2 - PCV) 11/08/1981 HIV Screening 11/08/1990 Albumin/Creatinine Ratio 11/08/1993 Hepatitis C Screening 11/08/1993 DTaP,Tdap,and Td Vaccines (1 - Tdap) 11/08/1994 Hepatitis B (1 of 3 - 19+ 3-dose series) 11/08/1994 Cologuard 11/08/2020 Colonoscopy 11/08/2020 Colorectal Cancer Screening 11/08/2020 Fecal Occult Blood Test 11/08/2020 Sigmoidoscopy 11/08/2020 COVID-19 Vaccine (2 - season) 2023 10/11/2020 Influenza Vaccine (FLU shot) (#1) 2023 GFR 03/27/2023 03/27/2022, 12/03, 02/04/2019, Additional history exists Depression Screening 04/28/2024 04/28/2023, 12/25/2014 (Discussed) Diabetes Screening 12/17/2024 12/17/2021, 0 12/17/2021, 02/04/2019, Additional history exists Lipid Panel 12/17/2026 12/17/2021, 08/06, 01/26/2013, Additional history exists GARDASIL-HPV IMMUNIZATION SERIES Aged Out No longer eligible based on patient's age to complete this topic MENINGOCOCCAL (MENACTRA/MENVEO) Aged Out No longer eligible based on patient's age to complete this topic documented as of this encounter Medical Devices Implanted Type Area Maritime Officer Device Identifier Shelf Expiration Date Model / Serial / Lot Patch Hernia Ventralex Sml - [id number] Implanted:Qty: 1 on 05/05/2022 by Jadiel Yost MD at OR [facility] N/A: Abdomen CR BARD : DAVOL 09/01/2023 [id number] / / [id number] documented as of this encounter Visit Diagnoses Diagnosis Mixed conductive and sensorineural hearing loss of both ears- Primary Mixed hearing loss, bilateral documented in this encounter Advance Directives Latest Code Status on File Code Status Date Activated Date Inactivated Comments Full Code 05/05/2022 10:03 AM 05/05/2022 5:21 PM This order reflects the patients wishes and were consensually agreed upon. Question Answer Comments Discussion of Advance Directives occurred with: Patient Care Teams Parts Product Analyst Relationship Specialty Start Date End Date Malina Falcon DO [address] [place] [id number] PCP - General Family Medicine 11/02/18 documented as of this encounter
--- OUTSIDE RECORDS SUMMARY | 2023-10-18 03:42 | External Medical Summary | Summary of Care ---
Author Name Unknown Organization [facility] Address [address] [place] [address] Phone [phone] Care Team Providers Care Lay Out Technician Name Role Phone Malina Falcon DO Primary Care Provider [phone] Reason for Visit * Reason Comments Follow Up Encounter Details Date Type Department Care Team (Late st Contact Info) Description 10/05/2023 10:00 AM EDT [facility] [address] [place] [address] Malina Parrish MD [address], [place] [id number] PTSD (post-traumatic stress disorder)*; Agoraphobia with panic disorder; Bipolar affective disorder, remission status unspecified ([facility]) Allergies No known active allergiesdocumented as of this encounter (statuses as of 10/05/2023) Medications Medication Sig Dispensed Refills Start Date End Date Status Sildenafil Citrate 100 MG Oral TabletIndications :Erectile dysfunction, unspecified erectile dysfunction type Take 1 Tablet by mouth daily as needed for Erectile Dysfunction. 30 Tablet 0 09/20/2023 Active Omeprazole 20 MG Oral Capsule Delayed Release (PriLOSEC) Take 1 Capsule by mouth in the morning. 1 hour before the first meal of the day. 30 Capsule 5 09/22/2023 Active FLUoxetine HCl 40 MG Oral Capsule (PROzac) Take 2 Capsules by mouth in the morning. 180 Capsule 1 10/05/2023 Active Gabapentin 600 MG Oral Tablet (Neurontin) Take 1 Tablet by mouth in the morning and 1 Tablet before bedtime. 180 Tablet 1 10/05/2023 Active OLANZapine 20 MG Oral Tablet (ZyPREXA)Indicati ons:PTSD (post-traumatic stress disorder) Take 1 Tablet by mouth at bedtime. 90 Tablet 1 10/05/2023 Active OLANZapine 5 MG Oral Tablet (ZyPREXA) Take 1 Tablet by mouth every morning. 90 Tablet 1 10/05/2023 Active Prazosin HCl 1 MG Oral Capsule (Minipress) Take 1 capsule in the morning and 3 capsules at night for PTSD 360 Capsule 1 10/05/2023 Active clonazePAM 0.5 MG Oral Tablet (KlonoPIN) Take 1 Tablet by mouth 3 times a day as needed for Anxiety. Do not start before October 15, 2023. 270 Tablet 0 10/15/2023 Active Prazosin HCl 1 MG Oral Capsule (Minipress) Take 1 capsule in the morning and 3 capsules at night for PTSD 360 Capsule 1 06/18/2023 10/05/2023 Discontinue d(Refill) FLUoxetine HCl 40 MG Oral Capsule (PROzac) Take 2 Capsules by mouth in the morning. 180 Capsule 1 06/18/2023 10/05/2023 Discontinue d(Refill) OLANZapine 5 MG Oral Tablet (ZyPREXA) Take 1 Tablet by mouth every morning. 90 Tablet 1 06/18/2023 10/05/2023 Discontinue d(Refill) OLANZapine 20 MG Oral Tablet (ZyPREXA)Indicati ons:PTSD (post-traumatic stress disorder) Take 1 Tablet by mouth at bedtime. 90 Tablet 1 07/15/2023 10/05/2023 Discontinue d(Refill) clonazePAM 0.5 MG Oral Tablet (KlonoPIN) Take 1 Tablet by mouth 3 times a day as needed for Anxiety. 270 Tablet 0 07/16/2023 10/05/2023 Discontinue d(Refill) Gabapentin 600 MG Oral Tablet (Neurontin) Take 1 Tablet by mouth in the morning and 1 Tablet before bedtime. 180 Tablet 1 07/16/2023 10/05/2023 Discontinue d(Refill) documented as of this encounter (statuses as of 10/05/2023) Active Problems Problem Noted Date Diagnosed Date Bipolar disorder 09/07/2023 Major depressive disorder, single episode, moder ate 09/07/2023 Paranoia 09/07/2023 Incisional hernia without obstruction or gangren e 05/05/2022 PTSD (post-traumatic stress disorder) 06/02/2021 Agoraphobia with panic disorder 06/02/2021 Food insecurity 02/10/2021 Overview: Per [facility] Protocol History of pulmonary embolism 12/15/2018 Alcohol ingestion, 1-4 drinks per day 09/01/2016 MEDICATION USE AGREEMENT 09/01/2016 Overview: 09/01/16 Anxiety state 08/11/2016 GERD (gastroesophageal reflux disease) 4 HTN, goal below 140/90 documented as of this encounter (statuses as of 10/05/2023) Resolved Problems Problem Noted Date Diagnosed Date [...] as of this encounter (statuses as of 10/05/2023) Immunizations Name Administration Dates Next Due Covid-19 Ad26, Single Dose (Maral/J&J) 021 documented as of this encounter Social History Tobacco Use Types Packs/Day Years Used Date Smoking Tobacco: Every Day Cigarettes 0.5 24 Started: 07/12/1989; Last attempted to quit: 07/12/2013 Passive Smoke Exposure: Current Smokeless Tobacco: Current Snuff Comments:began at age [...] on file documented as of this encounter Progress Notes * Malina Parrish MD - 10/05/2023 10:10 AM EDT OUTPATIENT PSYCHIATRY FOLLOW-UP DIVISION OF PSYCHIATRY [address] [address] Name: Ez Zuniga Patient location: HOME. I was not in a hospital or clinic location. After connecting through televideo, patient was verified with two unique identifiers. 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 Methods to assure confidentiality were taken. Patient acknowledged consent and understanding of privacy and security of the Telemedicine visit. The patient agreed to participate. Ez Zuniga ("Forest") is a 47 year old male with history of panic disorder, agoraphobia, WIL, alcohol use disorder (in remission), unspecified bipolar disorder, and PTSD who presents for psychiatric care. SUBJECTIVE: Pt reports stable symptoms overall. Anxiety flares up at times, especially with re-doing ear surgery last week. Tube had come out. Next he wants to get hernia surgery re-done. Excited about fishing season starting this weekend. Excited about trip to [place]. 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 Mood overall stable. Sleep- about 5 hours/night. Feels like enough for him. Rare nightmares. Hearing voices- 1-2x total since last appt. 1x panic attacks before ear surgery. Using medical marijuana gummies just before bed for sleep. Denies SI. Per patient: "The medication I am on is helping me tremendously. I'm doing much better than I was" PER INITIAL EVALUATION DATED 06/02/21: CHIEF COMPLAINT: "my anxiety is thru the roof" HISTORY OF PRESENT ILLNESS: Previously seen by Dr. Cassidy in 2019 for panic disorder, WIL, possible PTSD, and agoraphobia. Has since been to state alf for 1 year for possession with intent to distribute. Out on parole now. Has seen multiple psychiatrists over the years without consistent care because of his insurance changing and going to alf. He assumed he was previously diagnosed with schizophrenia because he heard voices and was prescribed zyprexa, but has never been explicitly told this. Zyprexa has been very helpful to him. Thinks he has had ADHD since he was young, but does not remember this being formally diagnosed. Hasnever been treated for ADHD. Hx of marijuana, alcohol, and methamphetamine use - denies currently. No use since 2018. Denies cravings to use. Current symptoms: Fearful and paranoid since being in state alf. Seen stabbings and gangs etc in alf. Can't stop thinking about these things. +Hypervigilance, looking over his shoulder Nervous about crowds, strange people Queasy feeling, heart pounding +nightmares about people getting stabbed/sliced Constantly looking over his shoulder Afraid to go anywhere, do anything. Difficulties eating due to anxiety Has long history of anxiety - social anxiety, anxiety about meeting new people, anxiety about crowds. Hx of agoraphobia. Even prior to alf had these anxiety symptoms. Does not like leaving his home unless essential. Feels better at home. Teddy does grocery shopping etc so that he does not haveto leave the house. Even at home, he feels his mind is constantly racing, replaying things that happened in alf. Hard to focus on watching a movie or other things because he zones out thinking about traumatic events. Has history of hearing voices. Voices always are related to the idea that someone is trying to harmhim, voices of people outside of his house. Voices started after he tried meth and never entirely went away. Last use of meth 2018. No interest in doing meth again because it worsened his anxiety and hallucinations. Current meds: Buspar 30mg BID - sometimes makes anxiety worse, makes him shaky zyprexa 10mg po qHS, helpful PSYCHIATRIC REVIEW OF SYMPTOMS: Depression: -Mood: anxious -Sleep: generally okay, waking up periodically, racing thoughts when he wakes up. Nightmares. -Interest: loss of interest or pleasure in usual activities and poor motivation -Appetite: decreased, weight stable since 2019 -Suicidal ideation/Intent: denied by patient Anxiety: See HPI Kartik: Would stay up for days on end in the past, lot of energy, lot of anxiety, lasting 4-5 days without sleep, decreased need for sleep, racing thoughts, then would start to hear voices (put on zyprexa for this), fear of people coming and attacking him, would just stay inside and play video games. Very scared/anxious during this time. Denies substance use during these periods. Zyprexa helped these symptoms and allowed him to sleep. Denies other manic symptoms. Psychosis: Periodically thinks someone is outside his house and hears someone outside - started around 2006 (after doing meth, but never went away) Delusions: thinking people are there and they really are not, previously thought he was being arrested and family involved with the plot against him (while on meth) Afraid people are talking about him. IOR: denies OCD: deferred PTSD: -Hypervigilance: yes -Avoidance: yes -Flashbacks: yes -Nightmares: yes -intrusive thoughts about trauma PAST PSYCHIATRIC HISTORY: Outpatient treatment: in alf Prior diagnoses: thinks he was diagnosed with ?schizophrenia. Per [facility] records, panic disorder, PTSD, agoraphobia, alcohol use disorder Hospitalizations: denies Past suicide attempts: denies SIB: denies Medication trials: gabapentin (helpful for anxiety), prozac, zyprexa (helpful), buspar (worsened anxiety) Adherence to current medications: fair SUBSTANCE USE HISTORY: TOBACCO: yes, 1/2 PPD ALCOHOL: Last use 2017 DRUGS: Cannabis: in the past Meth: in the past Denies opiates REHABILITATION HISTORY: History of rehabs: no Longest period of sobriety: N/A PERSONAL, FAMILY, AND SOCIAL HISTORY OCCUPATIONAL HISTORY: Filing for disability for "schizophrenia and anxiety and Lyme Disease" HISTORY: no CURRENT LIVING SITUATION: Current living situation: with fiancee Marital status: LEGAL HISTORY: On parole for 1 year. 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 MEDICAL HISTORY PRIMARY CARE PROVIDER: Malina Falcon DO PAST MEDICAL AND SURGICAL HISTORY: Patient Active Problem List Diagnosis Code HTN, goal below 140/90 I10 GERD (gastroesophageal reflux disease) K21.9 Anxiety state F41.1 Alcohol ingestion, 1-4 drinks per day Z78.9 MEDICATION USE AGREEMENT [id number] History of pulmonary embolism Z86.711 Food insecurity Z59.41 PTSD (post-traumatic stress disorder) F43.10 Agoraphobia with panic disorder F40.01 Incisional hernia without obstruction or gangrene K43.2 Bipolar disorder ([facility]) F31.9 Major depressive disorder, single episode, moderate ([facility]) F32.1 Paranoia ([facility]) F22 Past Medical History: Diagnosis Date DVT (deep venous thrombosis) ([facility]) 2016 HTN, goal below 140/90 2012 INFORMATION 09/01/2016 10 year cardiovascular risk 1% 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 OTHER (INFORMATION) 1998 left rotator cuff repair- [facility] OTHER (INFORMATION) muscle removed from under right side of rib cage when he was just a few days old. PYLOROMYOTOMY (FREDET-RAMSTEDT) as a baby REPAIR INITIAL INCISIONAL OR VENTRAL HERNIA; REDUCIBLE N/A 05/05/2022 REPAIR INITIAL INCISIONAL /VENTRAL HERNIA REDUCIBLE performed by Jadiel Yost MD at OR [facility] ALLERGIES: Patient has no known allergies. CURRENT MEDICATIONS: Current Outpatient Medications Medication Sig Dispense Refill Prazosin HCl 1 MG Oral Capsule (Minipress) Take 1 capsule in the morning and 3 capsules at night for PTSD 360 Capsule 1 FLUoxetine HCl 40 MG Oral Capsule (PROzac) Take 2 Capsules by mouth in the morning. 180 Capsule 1 OLANZapine 5 MG Oral Tablet (ZyPREXA) Take 1 Tablet by mouth every morning. 90 Tablet 1 OLANZapine 20 MG Oral Tablet (ZyPREXA) Take 1 Tablet by mouth at bedtime. 90 Tablet 1 clonazePAM 0.5 MG Oral Tablet (KlonoPIN) Take 1 Tablet by mouth 3 times a day as needed for Anxiety. 270 Tablet 0 Gabapentin 600 MG Oral Tablet (Neurontin) Take 1 Tablet by mouth in the morning and 1 Tablet beforebedtime. 180 Tablet 1 Sildenafil Citrate 100 MG Oral Tablet Take 1 Tablet by mouth daily as needed for Erectile Dysfunction. 30 Tablet 0 Omeprazole 20 MG Oral Capsule Delayed Release (PriLOSEC) Take 1 Capsule by mouth in the morning. 1 hour before the first meal of the day. 30 Capsule 5 No current facility-administered medications for this visit. Review of patient's allergies indicates: No Known Allergies Current Outpatient Medications Medication Sig Dispense Refill Prazosin HCl 1 MG Oral Capsule (Minipress) Take 1 capsule in the morning and 3 capsules at night for PTSD 360 Capsule 1 FLUoxetine HCl 40 MG Oral Capsule (PROzac) Take 2 Capsules by mouth in the morning. 180 Capsule 1 OLANZapine 5 MG Oral Tablet (ZyPREXA) Take 1 Tablet by mouth every morning. 90 Tablet 1 OLANZapine 20 MG Oral Tablet (ZyPREXA) Take 1 Tablet by mouth at bedtime. 90 Tablet 1 clonazePAM 0.5 MG Oral Tablet (KlonoPIN) Take 1 Tablet by mouth 3 times a day as needed for Anxiety. 270 Tablet 0 Gabapentin 600 MG Oral Tablet (Neurontin) Take 1 Tablet by mouth in the morning and 1 Tablet beforebedtime. 180 Tablet 1 Sildenafil Citrate 100 MG Oral Tablet Take 1 Tablet by mouth daily as needed for Erectile Dysfunction. 30 Tablet 0 Omeprazole 20 MG Oral Capsule Delayed Release (PriLOSEC) Take 1 Capsule by mouth in the morning. 1 hour before the first meal of the day. 30 Capsule 5 No current facility-administered medications for this visit. No medication comments found. There were no vitals filed for this visit. Wt Readings from Last 3 Encounters: 09/07/23 117.5 kg (259 lb) 09/09/22 109.8 kg (242 lb 2.8 oz) 06/03/22 104.9 kg (231 lb 3.2 oz) There is no height or weight on file to calculate BMI. RECENT LABS/IMAGING: No results found for this or any previous visit (from the past 2016 hour(s)). MEDICAL REVIEW OF SYSTEMS: Negative except for HPI MENTAL STATUS EVALUATION: Appearance: age-appropriate and casually dressed Motor: wnl Behavior: cooperative, calm Speech: normal rate, volume, quantity Mood: "good" Affect: mildly anxious Associations: intact Thought Process: logical Thought Content: Denies SI/HI Perceptual Disturbances: denies AVH Orientation: alert and oriented to person, place, time and situation Insight: fair Judgment: fair Impulse Control: fair [place]-SUICIDE SEVERITY RATING SCALE Frequent Screener Ask questions that are bold and underlined Since Last Contact (Adriel with an X) YES NO Have you actually had thoughts about killing yourself? x If YES, ask the following questions. If NO, go directly to the last question Have you been thinking about how you might do this? Have you had these thoughts and had some intention of acting on them? E.g. I thought about taking an overdose, but I never made a specific plan as to when where or how I would actually do it.and I would never go through with it. Have you started to work out or worked out the details of how to kill yourself? Do you intend to carry out this plan? As opposed to I have the thoughts, but I definitely will not do anything about them. Have you done anything, started to do anything, or prepared to do anything to end your life? Examples: Collected pills, obtained a gun, gave away valuables, wrote a will or suicide note, took out pills but didn't swallow any, held a gun but changed your mind or it was grabbed from your hand,went to the roof but didn't jump; or actually took pills, tried to shoot yourself, cut yourself, tried to hang yourself, etc. x Low Risk Complete or review crisis plan with patient Discuss risk/protective factors and reasons for living Moderate Risk Complete or review crisis plan with patient Discuss risk/protective factors and reasons for living Discuss removal of means High Risk Maintain 1 to 1 monitoring until assessment is completed Evaluate for higher level of care (Inpatient or PHP) Consultation with Emergency Services as appropriate If patient not admitted: Complete or review crisis plan with patient Discuss risk/protective factors and reasons for living Advise removal of means Consider family or collateral contact to promote safety Schedule follow up care consistent with assessment Risk Factors: Gender, hx of psychiatric illness Protective Factors: Future-oriented, help-seeking Formulation: Based on these risk and protective factors, this patient's safety risk is assessed to be minimal atthis time. ASSESSMENT AND PLAN: Working diagnoses: PTSD Panic disorder with agoraphobia WIL Unspecified bipolar disorder Amphetamine use disorder, in remission Cannabis use disorder, in remission Tobacco use disorder, active Alcohol use disorder, in remission Psychosocial and Contextual Factors: recently released from state alf, hx of substance use, on parole Patient and clinician identified the following strengths that will aid in treatment: help-seeking, motivated for treatment Patient and clinician identified the following needs: Trauma therapy, medication management Per initial evaluation: Ez Zuniga ("Forest") is a 45 year old male with history of panic disorder, agoraphobia, WIL, alcohol use disorder, and PTSD who presents for psychiatric care. On initial evaluation, patient presented with severe anxiety and severe PTSD after release from state alf. Patient had significant symptoms of panic disorder with agoraphobia prior to alf, which appear to have worsened with the trauma witnessed in alf. Patient already had the beginnings of PTSD prior to alf, but now he is highly symptomatic with nightmares, paranoia, and hypervigilance. Patient also describes history of manic episodes, possibly consistent with bipolar disorder. History of substance use clouds diagnostic clarity, but patient indicates that these manic episodes were during a period of sobriety and zyprexa started due to these episodes. 08/22/2021: On evaluation today, patient reports some improvement in anxiety during the morning since taking both doses of klonopin upon awakening. States sleep and occurrence of nightmares have significnatly improved. Continues to report hypervigilance throughout the day. Will add AM dose of prazosin for hypervigilance. Given patient's ongoing anxiety and depressed mood, will start fluoxetine 20mg PO daily. Denies suicidal ideations. No acute safety concerns elicited today. Encouraged continuedsobriety for optimal prognosis. 09/19/2021: Significant improvement in anxiety since starting prozac. Continues to have low mood, anxiety, occasional auditory hallucinations, and paranoia. Will continue to increase prozac to help with anxiety and low mood. No acute safety concerns. 10/24/21: Overall has had improvement in symptoms. Reports continued anxiety and muscle tension. Agreeable to increasing fluoxetine. Approved for disability (mental health). Denies SI. No acute safetyconcerns. 12/16/21: Overall, patient appears to be stabilizing. Still some residual anxiety and post-traumaticsymptomatology, but significantly improved from prior. No acute concerns today. 03/17/22: Anxiety is elevated, partly triggered by recent stressors. Still some agoraphobic/social anxiety traits. Will increase prozac to 60mg for management of PTSD and anxiety. Denies SI/HI/kartik. 05/21/22: Appears stable on current medications. Discussed that we should try to taper klonopin at future visits as this is not a good long-term medication for treatment of anxiety. Patient would like to wait on taper given recent stressors and upcoming holidays. Would benefit from psychotherapy for anxiety. 08/20/22: Increasing anxiety, paranoia, hypervigilance in context of recent stressors. Will add AM dose of zyprexa 5mg to target these symptoms as it will likely work faster than a prozac increase. Will follow closely and consider increases in prazosin and prozac at next visit if not improving. Strongly recommended therapy - patient very anxious about the idea of therapy due to his social anxiety,but is willing to trial this if it is a video appointment. 09/09/22: Appears very anxious having to come in-person to clinic today. Encouraged him to continue to try to go out and do things in public to challenge his anxiety/agoraphobic traits. Concerned that his fear of being in public will worsen with isolation. Encouraged to find activities that he enjoysthat gets him out of the house. He has some activities for spring/summer that will help with this, but spends much of the winter inside. Will continue to increase prozac to target anxiety/panic. 10/13/22: Improvement in symptoms with onset of good weather - better able to distract himself and helpful to go out and have more activities. Increase in prozac may also have helped anxiety/PTSD. Patient scheduled to start therapy next month - nervous about this. Encouraged him that therapy will likely be essential for next steps in his recovery and glad he is willing to give it a try. 01/12/23: Patient continues to struggle with anxiety/panic when going out in public, but making progress. Able to go to his father's wedding. Overall, patient appears stable on current regimen. Encouraged to continue therapy to work on his anxiety. Discussed idea of part-time work to help with keeping his mind busy as this seems therapeutic for him. 04/19/23: Continues to struggle with anxiety and PTSD. Working with therapist on anxiety. Discussedrisks of tolerance to klonopin and that this is not a good long-term agent for anxiety management- will begin to slowly taper and replace with alternative anxiety medication, gabapentin. 05/25/23: High anxiety - multiple triggers/stressors including two upcoming procedures that need harjit re-done (requiring him to go out in public, which is anxiety-provoking), 2 year anniversary of release from alf (which was a traumatic experience for him), and winter period in which he is lessactive/more confined inside due to agoraphobia/weather. Encouraged to continue working with therapist. Target symptoms of increasing nightmares, poor sleep, severe anxiety/agoraphobia, flashbacks, auditory hallucinations, and racing thoughts. Will increase zyprexa to help with anxiety/racing thoughts/sleep/AH and increase gabapentin to help with anxiety. 07/06/23: Overall appears stable on current medications. Still significant anxiety and post-traumaticsymptoms. Recommended trauma therapy when he feels ready for this. Will try to decrease klononpin again at next visit to reduce polypharmacy. 10/05/23: Stable on current medications. Medications: - Continue zyprexa 20mg po qHS - Continue zyprexa 5mg po qAM for paranoia/racing thoughts/anxiety - Continue prozac 80mg PO daily for PTSD, anxiety and depression - Continue prazosin 1mg in AM for hypervigilance and prazosin 3mg po qHS for nightmares/hypervigilance - Continue klonopin 0.5mg po TID PRN for severe anxiety. Discussed risks of tolerance and will needto slowly taper. Discussed risks of addiction and worsening anxiety. Has completed in-person visit in 2022. - Continue gabapentin 600mg po BID PRN anxiety - Encouraged to eat healthy/exercise to mitigate metabolic risks of zyprexa Patient understood the risks, benefits, side-effects and potential complications of current psychiatric medications and gave informed consent to be prescribed psychiatric medications as described above. Laboratory tests/other: Labs reviewed. Completed A1c and lipid panel 12/17/21. Repeat A1c and lipid panel- due to high anxiety patient requests to wait on repeat lab work until 2023. Discussed risks of deferring labs, which he expressed understanding of. 3. Therapy: continue to offer psychotherapy as and adjunct to evaluation and management and prescription of psychiatric medications. Recommended therapy for PTSD/anxiety 4. RTC: in 2-3 months Treatment options and alternatives reviewed with patient who agrees with the above plan. Information about current medications was provided to the patient including reasons why medications are being used. Patient understood the risks, benefits, side-effects, and potential complications associated with changes in medications being proposed (both medications being started and medications being discontinued or having dose changed). Patient is making an informed medical decision to follow the recommendations outlined in this note. Directed pt to call with any questions or concerns, worsening symptoms and/or ask for earlier appointment. Greater than 50% of the time was spent counseling or coordinating the care of the patient Risk assessment was performed. This is a patient being treated for chronic mental health conditionsand/or substance use disorder as characterized above; at the time of this visit, there was no indication that this patient was either a risk to self, others, or gravely disabled by symptoms of a mental illness or substance use disorder. At the time of this evaluation, there were enough protective factors in place and it was deemed safe to continue with treatment on a outpatient basis with return to clinic in the timeframe described above. Ez Parisi Zuniga participated in developing a crisis plan should he/she experience worsening of symptoms before next follow-up appointment, including being aware of what resources to use according tothe urgency and severity of symptoms. Ez Ailin Zuniga was able to verbalize understanding of the steps necessary to obtain help between appointments should be needed, from requesting a phone call, to requesting an appointment sooner, including reaching clinic after hours, or accessing emergency mental health and medical services, either at a local emergency department or by activating mobile crisis teams and EMS. Time Spent on Visit: 30minutes Billing code: [id number], [id number] documented in this encounter Plan of Treatment Upcoming Encounters Date Type Department Care Team (Late st Contact Info) Description 01/04/2024 8:30 AM EDT [facility] [address] [place] [address] aMlina Parrish MD [address] [place] [address] 03/13/2024 7:40 AM EDT Office Visit [facility] [address] [place] [address] NovemberYunior MD [address], [place] [id number] Health Maintenance Due Date Last Done Comments [...] 11/08/2020 Sigmoidoscopy 11/08/2020 COVID-19 Vaccine (2 - 2022- season) 2023 10/11/2020 GFR 03/27/2023 03/27/2022, 12/03, 02/04/2019, Additional history exists Influenza Vaccine (FLU shot) (Season Ended) 2024 Depression Screening 04/28/2024 04/28/2023, 12/25/2014 (Discussed) Diabetes [...] this encounter Medical Devices Implanted Type Area Wind Commissioning Technician Device Identifier Shelf Expiration Date Model / Serial / Lot Patch Hernia Ventralex l - [id number] Implanted:Qty: 1 on 05/05/2022 by Jadiel Yost MD at OR [facility] N/A: Abdomen CR BARD : DAVOL 09/01/2023 [id number] / / [id number] documented as of this encounter Visit Diagnoses Diagnosis PTSD (post-traumatic stress disorder)- Primary Posttraumatic stress disorder Agoraphobia with panic disorder Bipolar affective disorder, remission status unspecified (HCC) documented in this encounter Advance Directives Latest Code Status on File Code Status Date Activated Date Inactivated Comments Full Code 05/05/2022 10:03 AM 05/05/2022 5:21 PM This order reflects the patients wishes and were consensually agreed upon. Question Answer Comments Discussion of Advance Directives occurred with: Patient Care Teams Lay Out Technician Relationship Specialty Start Date End Date Malina Falcon DO [address] [place] [id number] PCP - General Family Medicine 11/02/18 documented as of this encounter
[2023-10-18] MEDS: ALBUT/IPRATROP 3MG/0.5MG NEB 3 ML VIAL NEB STA (03:59)
[2023-10-18] MEDS: methylPREDNISolone 125 MG/2 ML VIAL IV STA (03:59)
[2023-10-18] MEDS: NICOTINE 21 MG/24 HR TDSY TD STA (04:00)
--- NOTE | 2023-10-18 04:00 | Emergency Department Note ---
History of Present Illness General Chief complaint: Respiratory Problems Stated complaint: CAN'T BREATHE,PULSE OX OVER 80 Time Seen by Provider: 10/18/23 03:40 History of Present Illness Maximum Pain Intensity: 8 This 47-year-old male that smokes with a history of PE presents to the ER complaining of chest pain cough congestion fever and chills and low oxygen levels for the past day and a half. Patient states he stopped his Eliquis but they are not sure why he developed PE in the past. He states this feels different than his history of PE. Sats at home were in the 80s. 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 Patient denies abdominal pain, vomiting, diarrhea, leg pain or swelling, recent travel. No history of heart attack or stroke. Home Medications Medication Instructions Recorded Confirmed Type Medical Marijuana 1 dose PO UD PRN Anxiety 09/14/23 09/24/23 History clonazepam 0.5 mg tablet 0.5 mg PO TID 09/14/23 09/24/23 History fluoxetine 40 mg capsule 80 mg PO QAM 09/14/23 09/24/23 History gabapentin 600 mg tablet 600 mg PO BID 09/14/23 09/24/23 History olanzapine 20 mg tablet 20 mg PO HS 09/14/23 09/24/23 History olanzapine 5 mg tablet 5 mg PO QAM 09/14/23 09/24/23 History prazosin 1 mg capsule 1 mg PO UD 09/14/23 09/24/23 History Allergies Allergy/AdvReac Type Severity Reaction Status Date / Time No Known Drug Allergies Allergy Verified 09/24/23 11:26 Past Med/Surg History Medical History GERD (gastroesophageal reflux disease) Bipolar disorder type 1 Post traumatic stress disorder Anxiety and depression Mixed conductive and sensorineural hearing loss of right ear with restricted hearing of left ear Conductive hearing loss of both ears DVT (deep venous thrombosis) 2017, then moved to lung (was rx eliquis) unsure of reason Pulmonary embolism 2017 caused from dvt Surgical History S/P trigger finger release H/O umbilical hernia repair History of tooth extraction History of ear surgery right H/O shoulder surgery left Family History Father Hypertension Cancer Hearing loss Other No family history of adverse response to anesthesia No family history of bleeding disorder Social History Smoking Status: Current every day smoker Tobacco Type: Cigarettes Cigarettes Per Day: 10 cig daily>advised; Second Hand Exposure: Yes; Do You Dip or Chew Tobacco: Yes (advised); Hx Alcohol Use: No Hx Substance Use: Yes Last Used Substance Other:: OCAS Preferred Language: Samoan Communication Ability: Effective Nurse Ob Required: No Beliefs That Will Affect Care: None Current Living Situation: Family Current Living Situation Comment: and step son current occupational status: unemployed Feels Safe at Home: Yes Assistive Devices: Denture - Upper, Denture - Lower and Glasses Review of Systems A total of 10 systems reviewed and were otherwise negative Physical Exam Vital Signs Vital Signs - 24 hr 10/18/23 03:44 10/18/23 03:46 10/18/23 03:55 Temperature 37.4 C Temperature Source Oral Pulse Rate 132 H 122 H Pulse Rate [Apical] Pulse Rate from SpO2 Sensor 120 H Pulse Rhythm [Apical] Pulse Strength [Apical] Respiratory Rate 22 26 H Respiratory Effort / Characteristics Short of Breath Respiratory Depth Respiratory Pattern Blood Pressure 127/86 Blood Pressure [Left Arm] Blood Pressure Mean 99 Blood Pressure Mean [Left Arm] Blood Pressure Position Sitting Blood Pressure Position [Left Arm] Pulse Oximetry 84 L 84 L 94 Oxygen Delivery Method Room Air Room Air Nasal Cannula Nasal Cannula Oxygen Flow Rate 0 6 Sepsis Recent Fever Within 48 Hours Yes Sepsis New/Unexplained Change in Mental Status N/A Sepsis Action Taken by Nursing Adv Provider Notified Oxygen Flow Rate - Titration 6 Pulse Oximetry Post Tiitration 94 10/18/23 03:56 10/18/23 03:56 10/18/23 03:56 Temperature Temperature Source Pulse Rate 121 H Pulse Rate [Apical] 118 H Pulse Rate from SpO2 Sensor Pulse Rhythm [Apical] Regular Pulse Strength [Apical] Normal Respiratory Rate 28 H 28 H Respiratory Effort / Characteristics Spontaneous Accessory Muscle Use Labored Spontaneous Accessory Muscle Use Labored Respiratory Depth Shallow Shallow Respiratory Pattern Tachypnea Tachypnea Blood Pressure Blood Pressure [Left Arm] 103/78 Blood Pressure Mean Blood Pressure Mean [Left Arm] 86 Blood Pressure Position Blood Pressure Position [Left Arm] Sitting Pulse Oximetry 94 94 Oxygen Delivery Method Nasal Cannula Nasal Cannula Nasal Cannula Oxygen Flow Rate 6 6 6 Sepsis Recent Fever Within 48 Hours Sepsis New/Unexplained Change in Mental Status Sepsis Action Taken by Nursing Oxygen Flow Rate - Titration Pulse Oximetry Post Tiitration 10/18/23 04:00 10/18/23 04:09 10/18/23 04:13 Temperature Temperature Source Pulse Rate 121 H 118 H 117 H Pulse Rate [Apical] Pulse Rate from SpO2 Sensor 121 H 119 H Pulse Rhythm [Apical] Pulse Strength [Apical] Respiratory Rate 22 17 Respiratory Effort / Characteristics Respiratory Depth Respiratory Pattern Blood Pressure 103/78 Blood Pressure [Left Arm] Blood Pressure Mean 86 Blood Pressure Mean [Left Arm] Blood Pressure Position Blood Pressure Position [Left Arm] Pulse Oximetry 93 97 Oxygen Delivery Method Nasal Cannula Nasal Cannula Oxygen Flow Rate 6 6 Sepsis Recent Fever Within 48 Hours Sepsis New/Unexplained Change in Mental Status Sepsis Action Taken by Nursing Oxygen Flow Rate - Titration Pulse Oximetry Post Tiitration 10/18/23 04:30 10/18/23 04:30 10/18/23 05:00 Temperature Temperature Source Pulse Rate 116 H 113 H 112 H Pulse Rate [Apical] Pulse Rate from SpO2 Sensor 116 H 114 H Pulse Rhythm [Apical] Pulse Strength [Apical] Respiratory Rate 20 12 22 Respiratory Effort / Characteristics Respiratory Depth Respiratory Pattern Blood Pressure 141/79 H 151/97 H Blood Pressure [Left Arm] Blood Pressure Mean 100 115 Blood Pressure Mean [Left Arm] Blood Pressure Position Blood Pressure Position [Left Arm] Pulse Oximetry 93 95 92 Oxygen Delivery Method Nasal Cannula Nasal Cannula Oxymask Oxygen Flow Rate 6 6 6 Sepsis Recent Fever Within 48 Hours Sepsis New/Unexplained Change in Mental Status Sepsis Action Taken by Nursing Oxygen Flow Rate - Titration Pulse Oximetry Post Tiitration VITALS: Vitals are noted on the nurse's note and reviewed by myself. Vital signs low O2 and patient improved on nasal cannula. GENERAL: White male coughing working to breathe, in no acute distress, nondiaphoretic, well-developed well-nourished. SKIN: The skin was without rashes, erythema, edema, or bruising. There is no tenting of the skin. Capillary reflex less than 2 seconds. HEAD: Normocephalic atraumatic. EARS: External auditory canals clear EYES: Pupils equal round and reactive to light and accommodation. Conjunctivae without injection, sclerae without icterus. Extraocular movements intact. NOSE: Patent, no discharge. MOUTH: Mucous membranes moist. Pharynx without erythema or exudate. Uvula midline. Airway patent. Tongue does not deviate. NECK: Supple without nuchal rigidity. No lymphadenopathy. No thyromegaly. Cervical spine is nontender. No JVD. HEART: Mildly tachycardic rate and rhythm LUNGS: Diffuse inspiratory and end expiratory wheezes, No retractions or accessory muscle use. ABDOMEN: Positive bowel sounds x 4. Normal tympanic percussion. Soft, nontender, without masses or organomegaly. Smith sign negative. No guarding or rebound tenderness. No CVA tenderness MUSCULOSKELETAL: No muscle atrophy, erythema, or edema noted. NEURO: Patient was alert and oriented to person place and time. Normal sensation to light and sharp touch. No focal neurological deficits. Course Administered Medications Discontinued Medications Albuterol (Albut/Ipratrop 3mg/0.5mg Neb 3 Ml Vial) 3 ml NEB NOW STA; Protocol Stop: 10/18/23 03:57 Last Admin: 10/18/23 03:59 Dose: 3 ml Documented By: MONTSERRAT Sodium Chloride (Nss) 1,000 mls @ 999 mls/hr IV .Q1H1M ONE Stop: 10/18/23 04:56 Last Admin: 10/18/23 04:41 Dose: Not Given Documented By: RADHA Cefepime HCl (Maxipime) 2,000 mg in 20 mls @ 5 mls/min IV NOW STA; Protocol Stop: 10/18/23 04:39 Last Admin: 10/18/23 04:41 Dose: 5 mls/min Documented By: RADHA Ioversol (Optiray 320 125ml) 125 ml IV ONCE ONE Stop: 10/18/23 04:28 Last Admin: 10/18/23 04:27 Dose: 117 ml Documented By: AVELINO Methylprednisolone (Methylprednisolone 125 Mg/2 Ml Vial) 125 mg IV NOW STA Stop: 10/18/23 03:57 Last Admin: 10/18/23 03:59 Dose: 125 mg Documented By: MONTSERRAT Nicotine (Nicotine 21 Mg/24 Hr Tdsy) 21 mg TD NOW STA Stop: 10/18/23 03:57 Last Admin: 10/18/23 04:00 Dose: 21 mg Documented By: MONTSERRAT Medical Decision Making Medical Records Attestation: I reviewed the patient's medical records. Home Medications Current Medication List: was personally reviewed by me Laboratory Data Attestation: I reviewed the patient's lab results. 10/18/23 03:56 10/18/23 03:56 Lab Results 10/18/23 10/18/23 10/18/23 Range/Units 03:56 04:03 04:17 WBC 9.75 (4.8-10.8) K/ul RBC 5.32 (4.70-6.10) M/uL Hgb 15.9 (14.0-18.0) g/dl POC Hgb 15.6 (14.0-18.0) g/dl Hct 46.6 (42.0-52.0) % POC Hct 46 (42-52) % MCV 87.6 (80.0-100.0) fL MCH 29.9 (25.0-34.0) pg MCHC 34.1 (32.0-36.0) g/dL RDW Std Deviation 44.0 (36.4-46.3) fL RDW Coeff of Cornelio 13.7 (11.5-14.5) % Plt Count 177 (130-400) K/uL MPV 10.1 (9.4-12.4) fL Immature Gran % (Auto) 0.7 % Neut % (Auto) 81.7 % Lymph % (Auto) 9.3 % [place] % (Auto) 7.9 % Eos % (Auto) 0.1 % Baso % (Auto) 0.3 % Neut # (Auto) 7.96 H (1.40-6.50) K/uL Lymph # (Auto) 0.91 L (1.20-3.40) K/uL [place] # (Auto) 0.77 H (0.11-0.59) K/uL Eos # (Auto) 0.01 (0.00-0.50) K/uL Baso # (Auto) 0.03 (0.00-0.20) K/uL Immature Gran # (Auto) 0.07 (0.01-0.20) K/uL PT 10.8 (9.0-12.0) Seconds INR 1.0 (0.9-1.1) APTT 31 (21-31) Seconds PTT Ratio 1.1 VBG pH 7.45 H (7.36-7.41) VBG pCO2 38 (38-50) mmHg VBG pO2 61 mmHg VBG HCO3 26 mmol/L VBG O2 Saturation 91.8 % VBG Base Excess 2.4 mEq/L POC Sodium 137 (135-144) mmol/L Sodium 136 (136-145) mmol/L POC Potassium 3.9 (3.3-5.0) mmol/L Potassium 3.9 (3.5-5.1) mmol/L POC Chloride 101 (101-112) mmol/L Chloride 103 (98-107) mmol/L Carbon Dioxide 24 (21-32) mmol/L POC Total CO2 24 (24-31) mmol/L Anion Gap 9 (3-11) POC Anion Gap 17.0 (16-25) mmol/L POC BUN 12 (7-18) mg/dl BUN 13 (6-23) mg/dl Creatinine 1.16 (0.6-1.4) mg/dl POC Creatinine 1.1 (0.6-1.3) mg/dl Est Cr Clr Drug Dosing 96.9 ml/min Est GFR ( Amer) 86.4 ml/min Est GFR (Non-Af Amer) 74.6 ml/min BUN/Creatinine Ratio 11.2 (10-20) Glucose 186 H (70-99(Fasting)) mg/dl POC Glucose (other) 180 H (70-99) mg/dl Lactate 1.5 (0.4-2.0) mmol/L Calcium 8.9 (8.6-10.3) mg/dl POC Ioniz Calcium Raul 1.15 (1.12-1.32) mmol/l Magnesium 1.9 (1.7-2.4) mg/dl Total Bilirubin 0.5 (0.2-1.0) mg/dl AST 34 (13-39) U/L ALT 24 (7-52) U/L Alkaline Phosphatase 99 (34-104) U/L Troponin I High Sens 4.8 (0-20) pg/ml B-Natriuretic Peptide 19 (0-100) pg/ml Total Protein 7.5 (6.0-8.3) gm/dl Albumin 4.0 (3.4-5.0) gm/dl Globulin 3.5 (2.5-4.0) gm/dl Albumin/Globulin Ratio 1.1 (0.9-2) Imaging Data Attestation: I personally reviewed and interpreted this imaging study as follows: Radiologist's Impression: Chest CTA 10/18/23 03:40 Exam(s): CTA CHEST IV Amt: 117 ml optiray 320 EXAM: CT Angiography Chest With Intravenous Contrast CLINICAL HISTORY: Reason for exam: Dyspnea. TECHNIQUE: Axial computed tomographic angiography images of the chest with intravenous contrast. CTDI is 27.81 mGy and DLP is 838.61 mGy-cm. Automated exposure control was utilized for the study. A dose lowering technique was utilized adhering to the principles of ALARA. MIP reconstructed images were created and reviewed. COMPARISON: Pulmonary CTA December 29, 2016 FINDINGS: Pulmonary arteries: Unremarkable. No pulmonary embolism. Aorta: No acute findings. No thoracic aortic aneurysm. Lungs: Extensive bilateral pulmonary infiltrates consistent with pneumonia. No mass. Pleural space: Unremarkable. No significant effusion. No pneumothorax. Heart: Unremarkable. No cardiomegaly. No significant pericardial effusion. No evidence of RV dysfunction. Bones/joints: No acute fracture. No dislocation. Soft tissues: Unremarkable. Lymph nodes: Unremarkable. No enlarged lymph nodes. IMPRESSION: No evidence of pulmonary emboli. Extensive bilateral pulmonary infiltrates consistent with pneumonia. Electronically signed by: Addison Samayoa MD 10/18/23 05:05 AM MDM Narrative Prior records/ancillary studies reviewed. Triage Nursing notes reviewed. Additional history obtained from the family. The patient's history was concerning for respiratory difficulties. Differential diagnosis: Etiologies such as infections, reactive airway disease, pneumonia, pneumothorax, COPD, CHF, cardiac ischemia, pulmonary embolism, musculoskeletal, gastrointestinal, as well as others were entertained. Physical examination: As above. ER treatment provided: An order was placed for continuous cardiac monitoring. The monitor shows a rate of 60-1 50 with a sinus rhythm per my interpretation. Nebulizer, Solu-Medrol, IV fluids, cefepime for pneumonia On reassessment the patient felt better. Diagnostic interpretation by me: The electrocardiogram was ordered for SOB. ECG: Normal sinus, poor baseline, no acute ST-T wave changes. Impression sinus tachycardia independently interpreted by myself The labs Independently Interpreted by myself revealed no worrisome leukocytosis, stable H&H, stable creatinine, negative lactic I-STAT was ordered and patient was sent down for CTA Blood cultures pending neg troponin Imaging studies: Chest x-ray with multifocal pneumonia and congestion per my independent interpretation CTA as above Consultation: A consultation was placed with the hospitalist. The case was discussed and diagnostics were reviewed. The patient was evaluated in the ER for further treatment. CURB Score: Confusion: 0 Urea (BUN > 19): 0 Respiratory Rate (>30/min): 0 Blood Pressure: Diastolic <60 or Systolic <90 0 Age (>= 65) 0 Total (0-1 low risk, 2-5 high risk): 0 This appears to be consistent with multifocal pneumonia. Patient was hypoxic and improved to nasal cannula. He was started on antibiotics. He was medicated as above. He was reassessed multiple times. Medicine was consulted and case was discussed. He will be admitted to the medical service for further evaluation and treatment. By the evaluation outlined above emergent etiologies such as cardiac ischemia, pulmonary embolism, reactive airway disease, pneumothorax, musculoskeletal, as well as others were deemed relatively unlikely. The pt informed about the findings as listed above. All questions were answered and pleased with the treatment. The chart was completed utilizing [employer] Speech voice recognition software. Grammatical errors, random word insertions, pronoun errors, and incomplete sentences are an occassional consequence of this system due to software limitations, ambient noise, and hardware issues. Any formal questions or concerns about the content, text, or information contained within the body of this dictation should be directly addressed to the physician assistant dean for clarification. Impression & Plan Multifocal pneumonia, Hypoxemia Discharge Plan Visit Data Chief Complaint: Respiratory Problems Stated Complaint: CAN'T BREATHE,PULSE OX OVER 80 ED Provider: Ct Garcia ED Midlevel Provider: Elvira Cm Discharge Problem: Multifocal pneumonia, Hypoxemia Patient Disposition: Admitted As Inpatient Condition: Fair Forms Stand Alone Forms: My [facility] Prescriptions Prescriptions: No Action fluoxetine 40 mg Capsule 80 mg PO QAM Rx Instructions: administer in the morning and at noon/midday gabapentin 600 mg Tablet 600 mg PO BID prazosin 1 mg Capsule 1 mg PO UD Patient Comments: takes 1mg qam/3mg qhs clonazepam 0.5 mg Tablet 0.5 mg PO TID olanzapine 5 mg Tablet 5 mg PO QAM olanzapine 20 mg Tablet 20 mg PO HS Medical Marijuana 1 dose PO UD PRN (Reason: Anxiety) Referrals Referrals: Malina Falcon DO [Primary Care Provider] -
[2023-10-18 04:16] LABS: iSTAT Creatinine 1.1 mg/dl (0.6-1.3); iSTAT Hemoglobin 15.6 g/dl (14.0-18.0); iSTAT Ionized Calcium 1.15 mmol/l (1.12-1.32); iSTAT Potassium 3.9 mmol/L (3.3-5.0)
[2023-10-18 04:16] LABS: Basophils # (auto) 0.03 K/uL (0.00-0.20); Basophils % (auto) 0.3 %; Eosinophils # (auto) 0.01 K/uL (0.00-0.50); Eosinophils % (auto) 0.1 %; Hematocrit (blood only) 46.6 % (42.0-52.0); Hemoglobin 15.9 g/dl (14.0-18.0); Immature Granulocytes # (auto) 0.07 K/uL (0.01-0.20); Immature Granulocytes % (auto) 0.7 %; Lymphocytes # (auto) 0.91 K/uL (1.20-3.40); Lymphocytes % (auto) 9.3 %; Mean Corpuscular Hemoglobin 29.9 pg (25.0-34.0); Mean Corpuscular Hgb Conc 34.1 g/dL (32.0-36.0); Mean Corpuscular Volume 87.6 fL (80.0-100.0); Mean Platelet Volume 10.1 fL (9.4-12.4); Monocytes # (auto) 0.77 K/uL (0.11-0.59); Monocytes % (auto) 7.9 %; Neutrophils # (auto) 7.96 K/uL (1.40-6.50); Neutrophils % (auto) 81.7 %; Platelet Count 177 K/uL (130-400); RDW Coefficient of Variation 13.7 % (11.5-14.5); Red Blood Count 5.32 M/uL (4.70-6.10); White Blood Count 9.75 K/ul (4.8-10.8)
[2023-10-18] MEDS: OPTIRAY 320 125ml IV ONE (04:27)
[2023-10-18 04:29] LABS: Base Excess VBG 2.4 mEq/L; HCO3 VBG 26 mmol/L; Oxygen Saturation VBG 91.8 %; PCO2 VBG 38 mmHg (38-50); PO2 VBG 61 mmHg; pH VBG 7.45 (7.36-7.41)
[2023-10-18 04:31] LABS: Albumin Globulin Ratio 1.1 (0.9-2); BUN Creatinine Ratio 11.2 (10-20); Bilirubin,Total 0.5 mg/dl (0.2-1.0); Calcium 8.9 mg/dl (8.6-10.3); Creatinine Clr Calc Pharmacy 96.9 ml/min; Est GFR (African American) 86.4 ml/min; Est GFR (Non-African American) 74.6 ml/min; Globulin 3.5 gm/dl (2.5-4.0); Magnesium 1.9 mg/dl (1.7-2.4); Potassium 3.9 mmol/L (3.5-5.1); Total Protein 7.5 gm/dl (6.0-8.3)
[2023-10-18 04:37] LABS: Troponin I High Sensitivity 4.8 pg/ml (0-20)
[2023-10-18] MEDS: CEFEPIME 2,000 MG/20 ML VIAL IV STA (04:41)
[2023-10-18] MEDS: SODIUM CHLORIDE 0.9% 1,000 ML IV ONE (04:41)
[2023-10-18 04:42] LABS: Partial Thromboplastin Ratio 1.1; Partial Thromboplastin Time 31 Seconds (21-31); Prothrombin Time 10.8 Seconds (9.0-12.0)
--- NOTE | 2023-10-18 05:06 | CT Scan Report ---
Exam(s): CTA CHEST IV Amt: 117 ml optiray 320 EXAM: CT Angiography Chest With Intravenous Contrast CLINICAL HISTORY: Reason for exam: Dyspnea. TECHNIQUE: Axial computed tomographic angiography images of the chest with intravenous contrast. CTDI is 27.81 mGy and DLP is 838.61 mGy-cm. Automated exposure control was utilized for the study. A dose lowering technique was utilized adhering to the principles of ALARA. MIP reconstructed images were created and reviewed. COMPARISON: Pulmonary CTA December 29, 2016 FINDINGS: Pulmonary arteries: Unremarkable. No pulmonary embolism. Aorta: No acute findings. No thoracic aortic aneurysm. Lungs: Extensive bilateral pulmonary infiltrates consistent with pneumonia. No mass. Pleural space: Unremarkable. No significant effusion. No pneumothorax. Heart: Unremarkable. No cardiomegaly. No significant pericardial effusion. No evidence of RV dysfunction. Bones/joints: No acute fracture. No dislocation. Soft tissues: Unremarkable. Lymph nodes: Unremarkable. No enlarged lymph nodes. IMPRESSION: No evidence of pulmonary emboli. Extensive bilateral pulmonary infiltrates consistent with pneumonia. Electronically signed by: Addison Samayoa MD 10/18/23 05:05 AM
[2023-10-18 05:32] LABS: Adenovirus PCR Not Detected (NotDetected); Bordetella parapertussis PCR Not Detected (NotDetected); Bordetella pertussis PCR Not Detected (NotDetected); Chlamydia pneumoniae PCR Not Detected (NotDetected); Coronavirus 229E PCR Not Detected (NotDetected); Coronavirus CoV-2 (COVID19)PCR Not Detected (NotDetected); Coronavirus HKU1 PCR Not Detected (NotDetected); Coronavirus NL63 PCR Not Detected (NotDetected); Coronavirus OC43PCR Not Detected (NotDetected); Human Metapneumovirus PCR DETECTED (NotDetected); Influenza A PCR Not Detected (NotDetected); Influenza B PCR Not Detected (NotDetected); Mycoplasma pneumoniae PCR Not Detected (NotDetected); Parainfluenza Virus 1 PCR Not Detected (NotDetected); Parainfluenza Virus 2 PCR Not Detected (NotDetected); Parainfluenza Virus 3 PCR Not Detected (NotDetected); Parainfluenza Virus 4 PCR Not Detected (NotDetected); Respiratory Syncytial VirusPCR Not Detected (NotDetected); Rhinovirus/Enterovirus PCR Not Detected (NotDetected)
--- NOTE | 2023-10-18 06:08 | History & Physical Report ---
Date of Service October 18, 2023 Assessment & Plan (1) Multifocal pneumonia: Plan: 47-year-old male with past medical history significant for hypertension , GERD anxiety, history of PE, history of PTSD, history of panic disorder, bipolar disorder, major depression, paranoia comes in because of shortness since last 2 days and mostly dry cough and feeling cold and chills and body ache and was saturating 84% room air. Patient denies any headache. No neck pain. No back pain. No chest pains. No abdominal pain. No nausea/ vomiting. No diarrhea or constipation. Micturating okay. No swelling the legs. No rash . Smokes half pack a day. States quit alcohol in 2019. Recently on September 24 2023 had right myringotomy and tube placement for chronic right otitis media. Shortness of breath Hypoxia CT scan no PE but showed extensive bilateral pulmonary infiltrates Multifocal pneumonia Placed on Zosyn and Doxy Will follow the response If not improving consult pulmonary COPD exacerbation Ongoing tobacco abuse Bilateral wheezing on exam Mostly from above IV Solu-Medrol 40 mg 3 times daily, nebs [id number] and as needed Will monitor GERD On omeprazole History of PTSD History of panic disorder History of bipolar disorder Depression Paranoia On fluoxetine, olanzapine, prazosin and Klonopin as needed History of PE says it was unproved PE in 2018 and was on Eliquis for 6 months DVT prophylaxis Lovenox Disposition Telemetry Full code History of Present Illness Chief Complaint: Shortness of breath Primary Care Provider: Malina Falcon, 47-year-old male with past medical history significant for hypertension , GERD anxiety, history of PE, history of PTSD, history of panic disorder, bipolar disorder, major depression, paranoia comes in because of shortness since last 2 days and mostly dry cough and feeling cold and chills and body ache and was saturating 84% room air. Patient denies any headache. No neck pain. No back pain. No chest pains. No abdominal pain. No nausea/ vomiting. No diarrhea or constipation. Micturating okay. No swelling the legs. No rash . Smokes half pack a day. States quit alcohol in 2019. Recently on September 24 2023 had right myringotomy and tube placement for chronic right otitis media. Past medical history. As mentioned above Past surgical history. EGD. Left rotator cuff repair. Pyloromyotomy. Repair of incisional hernia. Social history. . Smokes half pack a day for last 24 years. Alcohol states currently not drinking any alcohol. No drug use. Family history. Mother has diabetes. Father has hypertension. Allergies Allergy/AdvReac Type Severity Reaction Status Date / Time No Known Drug Allergies Allergy Verified 09/24/23 11:26 Home Medications Medication Instructions Recorded Confirmed Type clonazepam 0.5 mg tablet 0.5 mg PO TID PRN Anxiety 10/18/23 10/18/23 History fluoxetine 40 mg capsule 80 mg PO DAILY 10/18/23 10/18/23 History gabapentin 600 mg tablet 600 mg PO BID 10/18/23 10/18/23 History olanzapine 20 mg tablet 20 mg PO HS 10/18/23 10/18/23 History olanzapine 5 mg tablet 5 mg PO DAILYBB 10/18/23 10/18/23 History omeprazole 20 mg capsule,delayed 20 mg PO DAILY 10/18/23 10/18/23 History release prazosin 1 mg capsule 1 mg PO UD 10/18/23 10/18/23 History Past Med/Surg History Medical History GERD (gastroesophageal reflux disease) Bipolar disorder type 1 Post traumatic stress disorder Anxiety and depression Mixed conductive and sensorineural hearing loss of right ear with restricted hearing of left ear Conductive hearing loss of both ears DVT (deep venous thrombosis) 2017, then moved to lung (was rx eliquis) unsure of reason Pulmonary embolism 2017 caused from dvt Surgical History S/P trigger finger release H/O umbilical hernia repair History of tooth extraction History of ear surgery right H/O shoulder surgery left Family History Father Hypertension Cancer Hearing loss Other No family history of adverse response to anesthesia No family history of bleeding disorder Social History Smoking Status: Current every day smoker Tobacco Type: Cigarettes Cigarettes Per Day: 10 cig daily>advised; Second Hand Exposure: No; Do You Dip or Chew Tobacco: No; Tobacco Cessation Education Requested by Patient: No Hx Alcohol Use: No Hx Substance Use: No Preferred Language: Fijian Communication Ability: Effective Service Desk Associate Required: No Beliefs That Will Affect Care: None Current Living Situation: Family Current Living Situation Comment: and step son current occupational status: unemployed Other Information That Helps Us Care for You: No Feels Safe at Home: Yes Safety Concerns: Feels Safe At This Time Assistive Devices: None Review of Systems Review of Systems: All systems reviewed & are unremarkable except as noted in HPI & below Physical Exam Physical Exam: General- Not in distress Head- atraumatic Eyes- PERRL, ENT- oropharynx clear Neck- supple, no JVD Lungs- clear to auscultation b/l wheezing heard Heart- regular rate and rhythm; no murmur, no gallop. Abdomen- normal bowel sounds, soft, nontender, no distension Extremities- no pretibial edema, no erythema seen Neuro- alert, oriented x 3; PERRL, no facial palsy; no dysarthria; moves extremities. Results & Data Results & Data Vital Signs (Past 12 Hours) Vital Signs Temp Pulse Pulse Resp BP BP Pulse Ox 10/18/23 05:00 112 H 22 151/97 H 92 10/18/23 04:30 113 H 12 141/79 H 95 10/18/23 04:30 116 H 20 93 10/18/23 04:13 117 H 10/18/23 04:09 118 H 17 103/78 97 10/18/23 04:00 121 H 22 93 10/18/23 03:56 121 H 28 H 94 10/18/23 03:56 118 H 28 H 103/78 94 10/18/23 03:56 10/18/23 03:55 122 H 26 H 94 10/18/23 03:46 84 L 10/18/23 03:44 37.4 C 132 H 22 127/86 84 L O2 Del Method O2 Flow Rate 10/18/23 05:00 Oxymask 6 10/18/23 04:30 Nasal Cannula 6 10/18/23 04:30 Nasal Cannula 6 10/18/23 04:13 10/18/23 04:09 Nasal Cannula 6 10/18/23 04:00 Nasal Cannula 6 10/18/23 03:56 Nasal Cannula 6 10/18/23 03:56 Nasal Cannula 6 10/18/23 03:56 Nasal Cannula 6 10/18/23 03:55 Nasal Cannula 6 10/18/23 03:46 Room Air, Nasal Cannula 0 10/18/23 03:44 Room Air Diagnostic Findings Laboratory Results WBC 9.75 K/ul (4.8-10.8) 10/18/23 03:56 RBC 5.32 M/uL (4.70-6.10) 10/18/23 03:56 Hgb 15.9 g/dl (14.0-18.0) 10/18/23 03:56 POC Hgb 15.6 g/dl (14.0-18.0) 10/18/23 04:03 Hct 46.6 % (42.0-52.0) 10/18/23 03:56 POC Hct 46 % (42-52) 10/18/23 04:03 MCV 87.6 fL (80.0-100.0) 10/18/23 03:56 MCH 29.9 pg (25.0-34.0) 10/18/23 03:56 MCHC 34.1 g/dL (32.0-36.0) 10/18/23 03:56 RDW Std Deviation 44.0 fL (36.4-46.3) 10/18/23 03:56 RDW Coeff of Cornelio 13.7 % (11.5-14.5) 10/18/23 03:56 Plt Count 177 K/uL (130-400) 10/18/23 03:56 MPV 10.1 fL (9.4-12.4) 10/18/23 03:56 Immature Gran % (Auto) 0.7 % 10/18/23 03:56 Neut % (Auto) 81.7 % 10/18/23 03:56 Lymph % (Auto) 9.3 % 10/18/23 03:56 Powell % (Auto) 7.9 % 10/18/23 03:56 Eos % (Auto) 0.1 % 10/18/23 03:56 Baso % (Auto) 0.3 % 10/18/23 03:56 Neut # (Auto) 7.96 K/uL (1.40-6.50) H 10/18/23 03:56 Lymph # (Auto) 0.91 K/uL (1.20-3.40) L 10/18/23 03:56 Powell # (Auto) 0.77 K/uL (0.11-0.59) H 10/18/23 03:56 Eos # (Auto) 0.01 K/uL (0.00-0.50) 10/18/23 03:56 Baso # (Auto) 0.03 K/uL (0.00-0.20) 10/18/23 03:56 Immature Gran # (Auto) 0.07 K/uL (0.01-0.20) 10/18/23 03:56 PT 10.8 Seconds (9.0-12.0) 10/18/23 03:56 INR 1.0 (0.9-1.1) 10/18/23 03:56 APTT 31 Seconds (21-31) 10/18/23 03:56 PTT Ratio 1.1 10/18/23 03:56 VBG pH 7.45 (7.36-7.41) H 10/18/23 04:17 VBG pCO2 38 mmHg (38-50) 10/18/23 04:17 VBG pO2 61 mmHg 10/18/23 04:17 VBG HCO3 26 mmol/L 10/18/23 04:17 VBG O2 Saturation 91.8 % 10/18/23 04:17 VBG Base Excess 2.4 mEq/L 10/18/23 04:17 POC Sodium 137 mmol/L (135-144) 10/18/23 04:03 Sodium 136 mmol/L (136-145) 10/18/23 03:56 POC Potassium 3.9 mmol/L (3.3-5.0) 10/18/23 04:03 Potassium 3.9 mmol/L (3.5-5.1) 10/18/23 03:56 POC Chloride 101 mmol/L (101-112) 10/18/23 04:03 Chloride 103 mmol/L (98-107) 10/18/23 03:56 Carbon Dioxide 24 mmol/L (21-32) 10/18/23 03:56 POC Total CO2 24 mmol/L (24-31) 10/18/23 04:03 Anion Gap 9 (3-11) 10/18/23 03:56 POC Anion Gap 17.0 mmol/L (16-25) 10/18/23 04:03 POC BUN 12 mg/dl (7-18) 10/18/23 04:03 BUN 13 mg/dl (6-23) 10/18/23 03:56 Creatinine 1.16 mg/dl (0.6-1.4) 10/18/23 03:56 POC Creatinine 1.1 mg/dl (0.6-1.3) 10/18/23 04:03 Est Cr Clr Drug Dosing 96.9 ml/min 10/18/23 03:56 Est GFR ( Amer) 86.4 ml/min 10/18/23 03:56 Est GFR (Non-Af Amer) 74.6 ml/min 10/18/23 03:56 BUN/Creatinine Ratio 11.2 (10-20) 10/18/23 03:56 Glucose 186 mg/dl (70-99(Fasting)) H 10/18/23 03:56 POC Glucose (other) 180 mg/dl (70-99) H 10/18/23 04:03 Lactate 1.5 mmol/L (0.4-2.0) 10/18/23 03:56 Calcium 8.9 mg/dl (8.6-10.3) 10/18/23 03:56 POC Ioniz Calcium Raul 1.15 mmol/l (1.12-1.32) 10/18/23 04:03 Magnesium 1.9 mg/dl (1.7-2.4) 10/18/23 03:56 Total Bilirubin 0.5 mg/dl (0.2-1.0) 10/18/23 03:56 AST 34 U/L (13-39) 10/18/23 03:56 ALT 24 U/L (7-52) 10/18/23 03:56 Alkaline Phosphatase 99 U/L (34-104) 10/18/23 03:56 Troponin I High Sens 4.8 pg/ml (0-20) 10/18/23 03:56 B-Natriuretic Peptide 19 pg/ml (0-100) 10/18/23 04:17 Total Protein 7.5 gm/dl (6.0-8.3) 10/18/23 03:56 Albumin 4.0 gm/dl (3.4-5.0) 10/18/23 03:56 Globulin 3.5 gm/dl (2.5-4.0) 10/18/23 03:56 Albumin/Globulin Ratio 1.1 (0.9-2) 10/18/23 03:56 Impressions Chest CTA 10/18/23 03:40 Exam(s): CTA CHEST IV Amt: 117 ml optiray 320 EXAM: CT Angiography Chest With Intravenous Contrast CLINICAL HISTORY: Reason for exam: Dyspnea. TECHNIQUE: Axial computed tomographic angiography images of the chest with intravenous contrast. CTDI is 27.81 mGy and DLP is 838.61 mGy-cm. Automated exposure control was utilized for the study. A dose lowering technique was utilized adhering to the principles of ALARA. MIP reconstructed images were created and reviewed. COMPARISON: Pulmonary CTA December 29, 2016 FINDINGS: Pulmonary arteries: Unremarkable. No pulmonary embolism. Aorta: No acute findings. No thoracic aortic aneurysm. Lungs: Extensive bilateral pulmonary infiltrates consistent with pneumonia. No mass. Pleural space: Unremarkable. No significant effusion. No pneumothorax. Heart: Unremarkable. No cardiomegaly. No significant pericardial effusion. No evidence of RV dysfunction. Bones/joints: No acute fracture. No dislocation. Soft tissues: Unremarkable. Lymph nodes: Unremarkable. No enlarged lymph nodes. IMPRESSION: No evidence of pulmonary emboli. Extensive bilateral pulmonary infiltrates consistent with pneumonia. Electronically signed by: Addison Samayoa MD 10/18/23 05:05 AM ECG Additional Comments: ECG. Sinus tachycardia rate of 127. Nonspecific T wave abnormalities. No significant change was found. Code Status & VTE Plan VTE Prophylaxis Plan VTE Prophylaxis will be ordered: Yes
[2023-10-18] MEDS ORDERED: NITROGLYCERIN SL 0.4 MG/TAB TAB SL PRN (06:13)
[2023-10-18] MEDS ORDERED: POLYETHYLENE (MIRALAX) 17 GM PACK PO PRN (06:13)
[2023-10-18] MEDS ORDERED: LEVALBUTEROL 1.25 MG/3 ML NEB NEB PRN (06:13)
[2023-10-18 06:46] LABS: Appearance Urine Clear (Clear); Bilirubin Urine Negative (Negative); Blood Urine Negative (Negative); Color Urine Yellow; Glucose Urine UA Negative (Negative); Ketones Urine Negative (Negative); Leukocyte Esterase Urine Negative (Negative); Nitrite Urine Negative (Negative); Protein Urine Negative (Negative); Specific Gravity Urine <= 1.005 (1.000-1.030); Urobilinogen Urine Negative (Negative); pH Urine 5.5 (4.5-7.5)
[2023-10-18] MEDS: LEVALBUTEROL 1.25 MG/3 ML NEB NEB SCH (06:55)
[2023-10-18] MEDS: OLANZapine 5 MG TABLET PO SCH (07:45)
--- NOTE | 2023-10-18 07:56 | XRay Report ---
XR chest 1V portable CLINICAL HISTORY: Dyspnea COMPARISON STUDY: Chest CT December 29, 2016. Chest radiograph August 13, 2023. FINDINGS: Lung volumes are normal. There is no pneumothorax or pleural effusion. Multifocal airspace opacities throughout the lungs are present. Cardiomediastinal silhouette is stable. IMPRESSION: Airspace opacities throughout the lungs suggestive of multifocal pneumonia. Radiographic follow-up to ensure resolution is recommended. ACT 112: Negative or not required by law. Electronically signed by: Jf Lobo M.D. 10/18/2023 7:55 AM
[2023-10-18] MEDS: PIPERACILLIN/TAZOBACTAM 4.5 GM in DEXTROSE 5% MINI-B 100 ML IV SCH (07:58)
[2023-10-18] MEDS: DOXYCYCLINE HYCLATE 100 MG in DEXTROSE 5% MINI-B 100 ML IV SCH (07:58)
[2023-10-18] MEDS: FLUoxetine HCL 20 MG CAP PO SCH (08:47)
[2023-10-18] MEDS: ENOXAPARIN INJ 40 MG/0.4 ML SYR SQ SCH (08:47)
[2023-10-18] MEDS: PRAZOSIN HCL 1 MG CAP PO SCH ×2 (08:47→20:01)
[2023-10-18] MEDS: PANTOprazole 40 MG TAB PO SCH (08:47)
[2023-10-18] MEDS: GABAPENTIN 600 MG TAB PO SCH (08:47)
[2023-10-18] MEDS: clonazePAM 0.5 MG TAB PO PRN (08:50)
--- NOTE | 2023-10-18 08:54 | Electrocardiogram Report ---
Test Reason : Blood Pressure : / mmHG Vent. Rate : 127 BPM Atrial Rate : 127 BPM P-R Int : 130 ms QRS Dur : 080 ms QT Int : 316 ms P-R-T Axes : 066 044 131 degrees QTc Int : 459 ms Sinus tachycardia Nonspecific T wave abnormality Abnormal ECG When compared with ECG of 13-AUG-2023 11:55, No significant change was found Confirmed by Taj Valle ([id number]) on 10/18/2023 8:54:11 AM Referred By: REFERRED SELF Confirmed By:Masood Valle
[2023-10-18] MEDS ORDERED: PRAZOSIN HCL 1 MG CAP PO SCH (09:00)
[2023-10-18] MEDS ORDERED: methylPREDNISolone 125 MG/2 ML VIAL IV SCH (09:00)
[2023-10-18] MEDS: ACETAMINOPHEN 325 MG TAB PO PRN (11:54)
[2023-10-18] MEDS: guaiFENesin 600 MG TABCR PO ONE (13:26)
--- NOTE | 2023-10-18 13:33 | Communication Note ---
Date of Service: October 18, 2023 Patient seen and examined Reports cough/SOB +Rhonchi b/l on exam On 4L NC Resp PCR +HMP Likely viral pneumonia However continue current antibiotics Check procal Start antitussives Supportive care Counseled regarding smoking cessation. Smokes 0.5ppd Other plans as detailed in H/P
[2023-10-18] MEDS: methylPREDNISolone 40 MG in SYRINGE 0 ML IV SCH (15:12)
[2023-10-18] MEDS: BENZONATATE 100 MG CAPSULE PO PRN (15:48)
[2023-10-18] MEDS: guaiFENesin 600 MG TABCR PO SCH (20:02)
[2023-10-18] MEDS: OLANZapine 20 MG TABLET PO SCH (20:02)
[2023-10-19 06:11] LABS: Basophils # (auto) 0.03 K/uL (0.00-0.20); Basophils % (auto) 0.2 %; Hematocrit (blood only) 47.9 % (42.0-52.0); Hemoglobin 15.9 g/dl (14.0-18.0); Immature Granulocytes # (auto) 0.22 K/uL (0.01-0.20); Immature Granulocytes % (auto) 1.3 %; Lymphocytes % (auto) 5.7 %; Mean Corpuscular Hemoglobin 29.7 pg (25.0-34.0); Mean Corpuscular Hgb Conc 33.2 g/dL (32.0-36.0); Mean Corpuscular Volume 89.5 fL (80.0-100.0); Monocytes % (auto) 5.7 %; Neutrophils # (auto) 15.29 K/uL (1.40-6.50); Neutrophils % (auto) 87.1 %; Platelet Count 201 K/uL (130-400); RDW Coefficient of Variation 13.8 % (11.5-14.5); Red Blood Count 5.35 M/uL (4.70-6.10); White Blood Count 17.54 K/ul (4.8-10.8)
[2023-10-19 06:21] LABS: BUN Creatinine Ratio 14.3 (10-20); Calcium 9.6 mg/dl (8.6-10.3); Creatinine Clr Calc Pharmacy 94.3 ml/min; Est GFR (African American) 83.8 ml/min; Est GFR (Non-African American) 72.3 ml/min; Magnesium 2.3 mg/dl (1.7-2.4); Potassium 4.7 mmol/L (3.5-5.1)
[2023-10-19] MEDS: cefTRIAXone SODIUM 2,000 MG in DEXTROSE 5 % MINI-B 50 ML IV SCH (10:19)
--- NOTE | 2023-10-19 11:03 | Hospitalist Progress Note ---
Date of Service October 19, 2023 Assessment & Plan (1) Multifocal pneumonia: Plan: 47-year-old male with past medical history significant for hypertension , GERD anxiety, history of PE, history of PTSD, history of panic disorder, bipolar disorder, major depression, paranoia comes in because of shortness since last 2 days and mostly dry cough and feeling cold and chills and body ache and was saturating 84% room air. Smokes half pack a day. States quit alcohol in 2019. Recently on September 24 2023 had right myringotomy and tube placement for chronic right otitis media. Shortness of breath Acute respiratory failure with hypoxia CT scan did not show any PE but showed extensive bilateral pulmonary infiltrates Multifocal pneumonia Respiratory PCR positive for human metapneumovirus Likely viral pneumonia. However, will continue antibiotic with ceftriaxone and Doxy at this time. Possible COPD exacerbation Ongoing cigarette smoking Continue steroid for now Continue nebs Counseled extensively regarding smoking cessation GERD On omeprazole History of PTSD History of panic disorder History of bipolar disorder Depression Paranoia On fluoxetine, olanzapine, prazosin and Klonopin as needed History of PE In 2018 and was on Eliquis for 6 months DVT prophylaxis Lovenox Disposition Telemetry Full code I spent a total of 50 minutes coordinating, documenting and providing care for this patient excluding time spent in performance of separately billed services Admission and Anticipated Discharge Date Admission Date: October 18, 2023 Subjective Patient seen and examined. Reports worsening cough and shortness of breath. Denies any chest pain, nausea, vomiting, Denies any fevers, chills Denies any other complaint Physical Exam Constitutional: + well hydrated and + obese; no acute di stress Eyes: PERRL, conjunctivae normal, anicteric sclerae ENMT: external ear and nose normal, oropharynx normal Respiratory: normal respiratory effort; no respiratory distress On nasal cannula. Bilateral rhonchi Cardiovascular: Rate/Rhythm: regular rate and regular rhythm S1-S2 Gastrointestinal (Abdomen): normal bowel sounds, soft, nontender, no hepatosplenomegaly Musculoskeletal: no cyanosis or clubbing, extremities motor strength 5/5 Neurologic: PERRL, EOMI, accommodation nl, no face palsy, no dysarthria Psychiatric: A+Ox3, euthymic affect Results & Data Results & Data Vital Signs (Past 12 Hours) Vital Signs Temp Pulse Resp BP Pulse Ox Pulse Ox O2 Del Method 10/19/23 10:13 106 H 18 93 Nasal Cannula 10/19/23 09:15 Nasal Cannula 10/19/23 07:44 36.5 C 105 H 18 132/85 93 Nasal Cannula 10/19/23 07:00 92 10/19/23 07:00 103 H 18 95 Nasal Cannula 10/19/23 03:32 36.5 C 100 H 19 102/94 93 High Flow Nasal Cannula 10/18/23 23:21 37.0 C 100 H 18 131/83 94 High Flow Nasal Cannula O2 Del Method O2 Flow Rate O2 Flow Rate 10/19/23 10:13 7 10/19/23 09:15 3 10/19/23 07:44 7 10/19/23 07:00 Nasal Cannula 3 10/19/23 07:00 7 10/19/23 03:32 9 10/18/23 23:21 9 Laboratory Results Abnormal lab results 10/19/23 Range/Units 05:39 WBC 17.54 H (4.8-10.8) K/ul Neut # (Auto) 15.29 H (1.40-6.50) K/uL Lymph # (Auto) 1.00 L (1.20-3.40) K/uL [place] # (Auto) 1.00 H (0.11-0.59) K/uL Immature Gran # (Auto) 0.22 H (0.01-0.20) K/uL Glucose 152 H (70-99(Fasting)) mg/dl
[2023-10-20 08:04] LABS: Hematocrit (blood only) 48.2 % (42.0-52.0); Hemoglobin 15.7 g/dl (14.0-18.0); Mean Corpuscular Hemoglobin 29.5 pg (25.0-34.0); Mean Corpuscular Hgb Conc 32.6 g/dL (32.0-36.0); Mean Corpuscular Volume 90.6 fL (80.0-100.0); Mean Platelet Volume 9.8 fL (9.4-12.4); Platelet Count 207 K/uL (130-400); RDW Coefficient of Variation 13.8 % (11.5-14.5); RDW Standard Deviation 46.2 fL (36.4-46.3); Red Blood Count 5.32 M/uL (4.70-6.10); White Blood Count 13.96 K/ul (4.8-10.8)
[2023-10-20 08:38] LABS: BUN Creatinine Ratio 20.2 (10-20); Calcium 9.5 mg/dl (8.6-10.3); Creatinine Clr Calc Pharmacy 98.3 ml/min; Est GFR (African American) 88.3 ml/min; Est GFR (Non-African American) 76.2 ml/min
[2023-10-20] MEDS: predniSONE 20 MG TAB PO SCH (10:16)
[2023-10-20] MEDS: FLUTICASONE PROPIONATE NA SPR 16 GM BTL SCH (13:50)
--- NOTE | 2023-10-20 16:45 | Hospitalist Progress Note ---
Date of Service October 20, 2023 Assessment & Plan (1) Multifocal pneumonia: Plan: 47-year-old male with past medical history significant for hypertension , GERD anxiety, history of PE, history of PTSD, history of panic disorder, bipolar disorder, major depression, paranoia comes in because of shortness since last 2 days and mostly dry cough and feeling cold and chills and body ache and was saturating 84% room air. Smokes half pack a day. States quit alcohol in 2019. Recently on September 24 2023 had right myringotomy and tube placement for chronic right otitis media. Acute respiratory failure with hypoxia Multifocal pneumonia--likely viral pneumonia Acute COPD exacerbation secondary to above --CTA:No evidence of pulmonary emboli. Extensive bilateral pulmonary infiltrates consistent with pneumonia. --Respiratory PCR positive for human metapneumovirus Normal procalcitonin Empirically on ceftriaxone, doxycycline Continue prednisone, nebs Titrate supplemental oxygen to keep saturation 88 to 92% Tobacco use disorder Counseled to quit smoking GERD Continue PPI History of PTSD History of panic disorder History of bipolar disorder Depression Paranoia On fluoxetine, olanzapine, prazosin and Klonopin as needed History of PE In 2018 and was on Eliquis for 6 months DVT prophylaxis Lovenox CODE STATUS Full code Disposition Expected discharge home in stable Admission and Anticipated Discharge Date Admission Date: October 18, 2023 Subjective Patient is seen and examined at bedside Reports having cough, nasal stuffiness Also reports generalized body ache Reports nausea associated with decreased appetite No other complaints Saturating well on supplemental oxygen Review of Systems Review of Systems: All systems reviewed & are unremarkable except as noted in Subjective Physical Exam Physical Exam: Physical Exam: Vitals signs as noted above General Appearance:Obese, no apparent distress Head: normocephalic, Atraumatic Eyes: normal inspection, EOMI Neck: supple, Trachea midline Respiratory/Chest: Decreased breath sounds, B/L Rhonchi, No accessory muscle use Cardiovascular: S1, S2, No murmur Abdomen/GI:Soft, Non tender, Bowel sounds present Extremities/Musculoskeletal:normal inspection, no edema Neurologic/Psych:AAOX3, grossly no focal neurological deficits Skin: normal color, warm Results & Data Results & Data Vital Signs (Past 12 Hours) Vital Signs Temp Pulse Pulse Resp BP Pulse Ox O2 Del Method 10/20/23 14:30 98 H 16 95 Nasal Cannula 10/20/23 11:00 36.7 C 75 18 148/87 H 95 Nasal Cannula 10/20/23 10:41 102 H 95 Nasal Cannula 10/20/23 09:00 87 10/20/23 09:00 Nasal Cannula 10/20/23 08:00 36.8 C 86 20 134/74 96 High Flow Nasal Cannula 10/20/23 07:03 79 18 93 Nasal Cannula O2 Flow Rate 10/20/23 14:30 5 10/20/23 11:00 10/20/23 10:41 5 10/20/23 09:00 10/20/23 09:00 6 10/20/23 08:00 7 10/20/23 07:03 5 Laboratory Results Short CBC 10/20/23 Range/Units 07:42 WBC 13.96 H (4.8-10.8) K/ul Hgb 15.7 (14.0-18.0) g/dl Hct 48.2 (42.0-52.0) % Plt Count 207 (130-400) K/uL BMP 10/20/23 07:42 Sodium 143 Potassium 4.0 Chloride 104 Carbon Dioxide 31 BUN 23 Creatinine 1.14 Glucose 124 H Calcium 9.5
[2023-10-21 06:31] LABS: BUN Creatinine Ratio 21.1 (10-20); Est GFR (African American) 117.5 ml/min; Est GFR (Non-African American) 101.4 ml/min; Hematocrit (blood only) 44.1 % (42.0-52.0); Hemoglobin 14.8 g/dl (14.0-18.0); Magnesium 2.2 mg/dl (1.7-2.4); Mean Corpuscular Hemoglobin 29.6 pg (25.0-34.0); Mean Corpuscular Hgb Conc 33.6 g/dL (32.0-36.0); Mean Corpuscular Volume 88.2 fL (80.0-100.0); Platelet Count 218 K/uL (130-400); Potassium 3.8 mmol/L (3.5-5.1); RDW Coefficient of Variation 13.5 % (11.5-14.5); RDW Standard Deviation 43.8 fL (36.4-46.3); White Blood Count 12.71 K/ul (4.8-10.8)
--- NOTE | 2023-10-21 12:08 | XRay Report ---
XR chest 1V portable HISTORY: 47 years-old Male Shortness of breath COMPARISON: CTA chest 10/18/2023 TECHNIQUE: AP view of the chest FINDINGS: Cardiac mediastinal and hilar silhouettes are unchanged. Mixed interstitial and alveolar opacities ar e redemonstrated, progressively worsened throughout the left midlung and left lung base. There is no pneumothorax or large pleural effusion. Bones appear grossly intact. IMPRESSION: There are persistent infectious/inflammatory mixed interstitial and alveolar opacities wi th progressively worsening consolidation within the left lung base. ACT 112: Negative or not required by law. The above report was generated using voice recognition software. It may contain grammatical, syntax o r spelling errors. Electronically signed by: Lorenzo Carl M.D. 10/21/2023 12:07 PM
--- NOTE | 2023-10-21 18:02 | Hospitalist Progress Note ---
Date of Service October 21, 2023 Assessment & Plan (1) Multifocal pneumonia: Plan: 47-year-old male with past medical history significant for hypertension , GERD anxiety, history of PE, history of PTSD, history of panic disorder, bipolar disorder, major depression, paranoia comes in because of shortness since last 2 days and mostly dry cough and feeling cold and chills and body ache and was saturating 84% room air. Smokes half pack a day. States quit alcohol in 2019. Recently on September 24 2023 had right myringotomy and tube placement for chronic right otitis media. Acute respiratory failure with hypoxia Multifocal pneumonia--likely viral pneumonia Acute COPD exacerbation secondary to above --CTA:No evidence of pulmonary emboli. Extensive bilateral pulmonary infiltrates consistent with pneumonia. --Respiratory PCR positive for human metapneumovirus Normal procalcitonin Empirically on ceftriaxone, doxycycline Continue prednisone, nebs Titrate supplemental oxygen to keep saturation 88 to 92% Added flutter Continue current management Tobacco use disorder Counseled to quit smoking GERD Continue PPI History of PTSD History of panic disorder History of bipolar disorder Depression Paranoia On fluoxetine, olanzapine, prazosin and Klonopin as needed History of PE In 2018 and was on Eliquis for 6 months DVT prophylaxis Lovenox CODE STATUS Full code Disposition Expected discharge home in stable Admission and Anticipated Discharge Date Admission Date: October 18, 2023 Subjective Patient is seen and examined at bedside Reports cough with clear expectoration today Also reports some dyspnea on exertion No other complaints Denies any chest pain, nausea, vomiting, abdominal pain Review of Systems Review of Systems: All systems reviewed & are unremarkable except as noted in Subjective Physical Exam Physical Exam: Physical Exam: Vitals signs as noted above General Appearance:Obese, no apparent distress Head: normocephalic, Atraumatic Eyes: normal inspection, EOMI Neck: supple, Trachea midline Respiratory/Chest: Decreased coarse breath sounds, scattered wheezes, No accessory muscle use Cardiovascular: S1, S2, No murmur Abdomen/GI:Soft, Non tender, Bowel sounds present Extremities/Musculoskeletal:normal inspection, no edema Neurologic/Psych:AAOX3, grossly no focal neurological deficits Skin: normal color, warm Results & Data Results & Data Vital Signs (Past 12 Hours) Vital Signs Temp Pulse Pulse Resp BP Pulse Ox O2 Del Method 10/21/23 16:05 97 H 10/21/23 15:09 90 18 98 Nasal Cannula 10/21/23 15:00 36.6 C 97 H 18 138/79 97 Room Air, Nasal Cannula 10/21/23 12:00 36.7 C 98 H 20 135/77 97 Room Air 10/21/23 11:21 105 H 18 92 Nasal Cannula 10/21/23 09:00 96 H 10/21/23 09:00 Nasal Cannula 10/21/23 09:00 Nasal Cannula 10/21/23 07:49 36.9 C 87 18 117/68 98 Nasal Cannula 10/21/23 07:19 92 H 95 Nasal Cannula O2 Flow Rate 10/21/23 16:05 10/21/23 15:09 5 10/21/23 15:00 10/21/23 12:00 10/21/23 11:21 5 10/21/23 09:00 10/21/23 09:00 10/21/23 09:00 5 10/21/23 07:49 10/21/23 07:19 8 Laboratory Results Short CBC 10/21/23 Range/Units 05:17 WBC 12.71 H (4.8-10.8) K/ul Hgb 14.8 (14.0-18.0) g/dl Hct 44.1 (42.0-52.0) % Plt Count 218 (130-400) K/uL BMP 10/21/23 05:17 Sodium 139 Potassium 3.8 Chloride 104 Carbon Dioxide 29 BUN 19 Creatinine 0.90 Glucose 91 Calcium 9.0
[2023-10-21] MEDS: guaiFENesin 600 MG TABCR PO SCH (19:58)
[2023-10-21] MEDS: DOXYCYCLINE HYCLATE 100 MG CAP PO SCH (19:58)
[2023-10-22 06:23] LABS: Hematocrit (blood only) 43.2 % (42.0-52.0); Hemoglobin 14.6 g/dl (14.0-18.0); Mean Corpuscular Hemoglobin 29.5 pg (25.0-34.0); Mean Corpuscular Hgb Conc 33.8 g/dL (32.0-36.0); Mean Corpuscular Volume 87.3 fL (80.0-100.0); Mean Platelet Volume 9.8 fL (9.4-12.4); Platelet Count 222 K/uL (130-400); RDW Coefficient of Variation 13.2 % (11.5-14.5); RDW Standard Deviation 42.6 fL (36.4-46.3); Red Blood Count 4.95 M/uL (4.70-6.10); White Blood Count 12.52 K/ul (4.8-10.8)
[2023-10-22 06:43] LABS: BUN Creatinine Ratio 19.6 (10-20); Creatinine Clr Calc Pharmacy 119.6 ml/min; Est GFR (African American) 114.4 ml/min; Est GFR (Non-African American) 98.7 ml/min; Potassium 3.6 mmol/L (3.5-5.1)
[2023-10-22] MEDS: guaiFENesin/DEXTROM SYRUP 100MG/10MG 5ML UDC PO PRN (14:31)
--- NOTE | 2023-10-22 16:58 | Hospitalist Progress Note ---
Date of Service October 22, 2023 Assessment & Plan (1) Multifocal pneumonia: Plan: 47-year-old male with past medical history significant for hypertension , GERD anxiety, history of PE, history of PTSD, history of panic disorder, bipolar disorder, major depression, paranoia comes in because of shortness since last 2 days and mostly dry cough and feeling cold and chills and body ache and was saturating 84% room air. Smokes half pack a day. States quit alcohol in 2019. Recently on September 24 2023 had right myringotomy and tube placement for chronic right otitis media. Acute respiratory failure with hypoxia Multifocal pneumonia--likely viral pneumonia Acute COPD exacerbation secondary to above --CTA:No evidence of pulmonary emboli. Extensive bilateral pulmonary infiltrates consistent with pneumonia. --Respiratory PCR positive for human metapneumovirus Normal procalcitonin Empirically on ceftriaxone, doxycycline Continue nebs, steroids Titrate supplemental oxygen to keep saturation 88 to 92% Added flutter Less supplemental oxygen requirement today Antitussives as needed Needs 2 step prior to discharge Tobacco use disorder Counseled to quit smoking GERD Continue PPI History of PTSD History of panic disorder History of bipolar disorder Depression Paranoia On fluoxetine, olanzapine, prazosin and Klonopin as needed History of PE In 2018 and was on Eliquis for 6 months DVT prophylaxis Lovenox CODE STATUS Full code Disposition Expected discharge home in stable Admission and Anticipated Discharge Date Admission Date: October 18, 2023 Subjective Patient is seen and examined at bedside Still has cough with some chest pain associated with cough Reports generalized weakness and nausea Poor oral intake Supplemental oxygen requirement trending down No other complaints Review of Systems Review of Systems: All systems reviewed & are unremarkable except as noted in Subjective Physical Exam Physical Exam: Physical Exam: Vitals signs as noted above General Appearance:Obese, no apparent distress Head: normocephalic, Atraumatic Eyes: normal inspection, EOMI Neck: supple, Trachea midline Respiratory/Chest: Decreased coarse breath sounds, scattered wheezes, No accessory muscle use Cardiovascular: S1, S2, No murmur Abdomen/GI:Soft, Non tender, Bowel sounds present Extremities/Musculoskeletal:normal inspection, no edema Neurologic/Psych:AAOX3, grossly no focal neurological deficits Skin: normal color, warm Results & Data Results & Data Vital Signs (Past 12 Hours) Vital Signs Temp Pulse Pulse Resp BP Pulse Ox O2 Del Method 10/22/23 15:39 86 10/22/23 15:23 37.1 C 100 H 19 121/83 94 Nasal Cannula 10/22/23 14:51 89 16 97 Nasal Cannula 10/22/23 11:21 97 H 18 94 Nasal Cannula 10/22/23 11:13 37.0 C 98 H 20 145/81 H 95 Nasal Cannula 10/22/23 10:09 High Flow Nasal Cannula 10/22/23 07:30 85 10/22/23 07:25 36.7 C 91 H 20 124/79 91 Nasal Cannula 10/22/23 07:02 83 20 95 Nasal Cannula O2 Flow Rate 10/22/23 15:39 10/22/23 15:23 3.0 10/22/23 14:51 4 10/22/23 11:21 4 10/22/23 11:13 4.0 10/22/23 10:09 5 10/22/23 07:30 10/22/23 07:25 4.0 10/22/23 07:02 4 Laboratory Results Short CBC 10/22/23 Range/Units 05:23 WBC 12.52 H (4.8-10.8) K/ul Hgb 14.6 (14.0-18.0) g/dl Hct 43.2 (42.0-52.0) % Plt Count 222 (130-400) K/uL BMP 10/22/23 05:23 Sodium 140 Potassium 3.6 Chloride 104 Carbon Dioxide 29 BUN 18 Creatinine 0.92 Glucose 85 Calcium 9.0
[2023-10-22] MEDS: methylPREDNISolone 20 MG in SYRINGE 0 ML IV SCH (20:56)
[2023-10-22] MEDS ORDERED: methylPREDNISolone 1000 MG/16 ML IV SCH (21:00)
--- NOTE | 2023-10-23 16:55 | Hospitalist Progress Note ---
Date of Service October 23, 2023 Assessment & Plan (1) Multifocal pneumonia: Plan: 47-year-old male with past medical history significant for hypertension , GERD anxiety, history of PE, history of PTSD, history of panic disorder, bipolar disorder, major depression, paranoia comes in because of shortness since last 2 days and mostly dry cough and feeling cold and chills and body ache and was saturating 84% room air. Smokes half pack a day. States quit alcohol in 2019. Recently on September 24 2023 had right myringotomy and tube placement for chronic right otitis media. Acute respiratory failure with hypoxia Multifocal pneumonia--likely viral pneumonia Acute COPD exacerbation secondary to above --CTA:No evidence of pulmonary emboli. Extensive bilateral pulmonary infiltrates consistent with pneumonia. --Respiratory PCR positive for human metapneumovirus Normal procalcitonin Empirically on ceftriaxone, doxycycline Continue nebs, steroids Titrate supplemental oxygen to keep saturation 88 to 92% Added flutter Antitussives as needed Needs 2 step prior to discharge Saturating well on 2 to 3 L supplemental oxygen Slowly improving clinically Tobacco use disorder Counseled to quit smoking GERD Continue PPI History of PTSD History of panic disorder History of bipolar disorder Depression Paranoia On fluoxetine, olanzapine, prazosin and Klonopin as needed History of PE In 2018 and was on Eliquis for 6 months DVT prophylaxis Lovenox CODE STATUS Full code Disposition Expected discharge home in stable Admission and Anticipated Discharge Date Admission Date: October 18, 2023 Subjective Patient is seen and examined at bedside Subjectively feels a lot better today Cough, dyspnea slowly improving Less supplemental oxygen requirement today Offers no new complaints Review of Systems Review of Systems: All systems reviewed & are unremarkable except as noted in Subjective Physical Exam Physical Exam: Physical Exam: Vitals signs as noted above General Appearance:Obese, no apparent distress Head: normocephalic, Atraumatic Eyes: normal inspection, EOMI Neck: supple, Trachea midline Respiratory/Chest: Decreased coarse breath sounds, scattered wheezes, No accessory muscle use Cardiovascular: S1, S2, No murmur Abdomen/GI:Soft, Non tender, Bowel sounds present Extremities/Musculoskeletal:normal inspection, no edema Neurologic/Psych:AAOX3, grossly no focal neurological deficits Skin: normal color, warm Results & Data Results & Data Vital Signs (Past 12 Hours) Vital Signs Temp Pulse Pulse Resp BP Pulse Ox O2 Del Method 10/23/23 16:03 99 H 10/23/23 14:44 36.8 C 96 H 20 120/77 93 Nasal Cannula 10/23/23 14:09 89 18 93 Nasal Cannula 10/23/23 11:41 36.7 C 97 H 19 126/81 91 Nasal Cannula 10/23/23 10:13 81 18 93 Room Air 10/23/23 09:40 82 10/23/23 09:40 Nasal Cannula 10/23/23 08:12 36.6 C 92 H 18 127/87 92 Nasal Cannula 10/23/23 06:52 91 H 18 90 Nasal Cannula O2 Flow Rate 10/23/23 16:03 10/23/23 14:44 3.0 10/23/23 14:09 2 10/23/23 11:41 3.0 10/23/23 10:13 10/23/23 09:40 10/23/23 09:40 3 10/23/23 08:12 3.0 10/23/23 06:52 3
[2023-10-24 06:19] LABS: Calcium 9.1 mg/dl (8.6-10.3); Creatinine Clr Calc Pharmacy 130.8 ml/min; Est GFR (African American) 120.8 ml/min; Est GFR (Non-African American) 104.3 ml/min; Potassium 4.3 mmol/L (3.5-5.1)
[2023-10-24] MEDS ORDERED: ALBUTEROL HFA 8 GM INHALER INH PRN (10:56)
--- NOTE | 2023-10-24 12:18 | Hospitalist Progress Note ---
Date of Service October 24, 2023 Assessment & Plan (1) Multifocal pneumonia: Plan: 47-year-old male with past medical history significant for hypertension , GERD anxiety, history of PE, history of PTSD, history of panic disorder, bipolar disorder, major depression, paranoia comes in because of shortness since last 2 days and mostly dry cough and feeling cold and chills and body ache and was saturating 84% room air. Smokes half pack a day. States quit alcohol in 2019. Recently on September 24 2023 had right myringotomy and tube placement for chronic right otitis media. Acute respiratory failure with hypoxia Multifocal pneumonia--likely viral pneumonia Acute COPD exacerbation secondary to above --CTA:No evidence of pulmonary emboli. Extensive bilateral pulmonary infiltrates consistent with pneumonia. --Respiratory PCR positive for human metapneumovirus Normal procalcitonin Empirically on ceftriaxone, doxycycline Continue nebs, steroids Titrate supplemental oxygen to keep saturation 88 to 92% Added flutter Antitussives as needed 2 step: Needs 2 L with activity Plan to be discharged home today Counseled to quit smoking Tobacco use disorder Counseled to quit smoking on multiple occasions GERD Continue PPI History of PTSD History of panic disorder History of bipolar disorder Depression Paranoia On fluoxetine, olanzapine, prazosin and Klonopin as needed History of PE In 2018 and was on Eliquis for 6 months DVT prophylaxis Lovenox CODE STATUS Full code Disposition Home Admission and Anticipated Discharge Date Admission Date: October 18, 2023 Subjective Patient is seen and examined at bedside No new complaints Cough much improved No significant dyspnea Had 2 step earlier today Denies any chest pain, nausea, vomiting, abdominal pain Plan to discharge home today Review of Systems Review of Systems: All systems reviewed & are unremarkable except as noted in Subjective Physical Exam Physical Exam: Physical Exam: Vitals signs as noted above General Appearance:Obese, no apparent distress Head: normocephalic, Atraumatic Eyes: normal inspection, EOMI Neck: supple, Trachea midline Respiratory/Chest: Decreased coarse breath sounds, CTA, No accessory muscle use Cardiovascular: S1, S2, No murmur Abdomen/GI:Soft, Non tender, Bowel sounds present Extremities/Musculoskeletal:normal inspection, no edema Neurologic/Psych:AAOX3, grossly no focal neurological deficits Skin: normal color, warm Results & Data Results & Data Vital Signs (Past 12 Hours) Vital Signs Temp Pulse Pulse Pulse Pulse Resp Resp 10/24/23 11:37 36.8 C 98 H 20 10/24/23 11:24 101 H 116 H 81 20 10/24/23 11:00 79 18 10/24/23 07:52 36.4 C L 87 20 10/24/23 07:49 10/24/23 06:57 88 18 10/24/23 03:36 36.6 C 66 22 Resp Resp BP Pulse Ox Pulse Ox Pulse Ox Pulse Ox 10/24/23 11:37 130/81 90 10/24/23 11:24 22 18 95 85 L 93 10/24/23 11:00 92 10/24/23 07:52 125/80 93 10/24/23 07:49 10/24/23 06:57 95 10/24/23 03:36 126/83 94 O2 Del Method O2 Flow Rate O2 Flow Rate 10/24/23 11:37 Room Air 10/24/23 11:24 2 10/24/23 11:00 Nasal Cannula 2 10/24/23 07:52 Nasal Cannula 3.0 10/24/23 07:49 Nasal Cannula 3 10/24/23 06:57 Nasal Cannula 3 10/24/23 03:36 Nasal Cannula 3 Laboratory Results BMP 10/24/23 05:11 Sodium 140 Potassium 4.3 Chloride 106 Carbon Dioxide 28 BUN 21 Creatinine 0.84 Glucose 97 Calcium 9.1
--- NOTE | 2023-10-24 12:35 | Discharge Summary ---
Date of Service October 24, 2023 Admission HPI Per Admitting Provider 47-year-old male with past medical history significant for hypertension , GERD anxiety, history of PE, history of PTSD, history of panic disorder, bipolar disorder, major depression, paranoia comes in because of shortness since last 2 days and mostly dry cough and feeling cold and chills and body ache and was saturating 84% room air. Patient denies any headache. No neck pain. No back pain. No chest pains. No abdominal pain. No nausea/ vomiting. No diarrhea or constipation. Micturating okay. No swelling the legs. No rash . Smokes half pack a day. States quit alcohol in 2019. Recently on September 24 2023 had right myringotomy and tube placement for chronic right otitis media. Past medical history. As mentioned above Past surgical history. EGD. Left rotator cuff repair. Pyloromyotomy. Repair of incisional hernia. Social history. . Smokes half pack a day for last 24 years. Alcohol states currently not drinking any alcohol. No drug use. Family history. Mother has diabetes. Father has hypertension. Admission Exam Per Admitting Provider General- Not in distress Head- atraumatic Eyes- PERRL, ENT- oropharynx clear Neck- supple, no JVD Lungs- clear to auscultation b/l wheezing heard Heart- regular rate and rhythm; no murmur, no gallop. Abdomen- normal bowel sounds, soft, nontender, no distension Extremities- no pretibial edema, no erythema seen Neuro- alert, oriented x 3; PERRL, no facial palsy; no dysarthria; moves extremities. Principal Diagnosis Acute respiratory failure with hypoxia Multifocal pneumonia Acute COPD exacerbation Tobacco use disorder Discharge Data Allergies Allergy/AdvReac Type Severity Reaction Status Date / Time No Known Drug Allergies Allergy Verified 10/18/23 09:54 Consultations 10/18/23 05:09 ED Decision to Admit Stat Procedures Performed Laboratory Results WBC 12.52 K/ul (4.8-10.8) H 10/22/23 05:23 RBC 4.95 M/uL (4.70-6.10) 10/22/23 05:23 Hgb 14.6 g/dl (14.0-18.0) 10/22/23 05:23 POC Hgb 15.6 g/dl (14.0-18.0) 10/18/23 04:03 Hct 43.2 % (42.0-52.0) 10/22/23 05:23 POC Hct 46 % (42-52) 10/18/23 04:03 MCV 87.3 fL (80.0-100.0) 10/22/23 05:23 MCH 29.5 pg (25.0-34.0) 10/22/23 05:23 MCHC 33.8 g/dL (32.0-36.0) 10/22/23 05:23 RDW Std Deviation 42.6 fL (36.4-46.3) 10/22/23 05:23 RDW Coeff of Cornelio 13.2 % (11.5-14.5) 10/22/23 05:23 Plt Count 222 K/uL (130-400) 10/22/23 05:23 MPV 9.8 fL (9.4-12.4) 10/22/23 05:23 Immature Gran % (Auto) 1.3 % 10/19/23 05:39 Neut % (Auto) 87.1 % 10/19/23 05:39 Lymph % (Auto) 5.7 % 10/19/23 05:39 [place] % (Auto) 5.7 % 10/19/23 05:39 Eos % (Auto) 0.0 % 10/19/23 05:39 Baso % (Auto) 0.2 % 10/19/23 05:39 Neut # (Auto) 15.29 K/uL (1.40-6.50) H 10/19/23 05:39 Lymph # (Auto) 1.00 K/uL (1.20-3.40) L 10/19/23 05:39 [place] # (Auto) 1.00 K/uL (0.11-0.59) H 10/19/23 05:39 Eos # (Auto) 0.00 K/uL (0.00-0.50) 10/19/23 05:39 Baso # (Auto) 0.03 K/uL (0.00-0.20) 10/19/23 05:39 Immature Gran # (Auto) 0.22 K/uL (0.01-0.20) H 10/19/23 05:39 PT 10.8 Seconds (9.0-12.0) 10/18/23 03:56 INR 1.0 (0.9-1.1) 10/18/23 03:56 APTT 31 Seconds (21-31) 10/18/23 03:56 PTT Ratio 1.1 10/18/23 03:56 VBG pH 7.45 (7.36-7.41) H 10/18/23 04:17 VBG pCO2 38 mmHg (38-50) 10/18/23 04:17 VBG pO2 61 mmHg 10/18/23 04:17 VBG HCO3 26 mmol/L 10/18/23 04:17 VBG O2 Saturation 91.8 % 10/18/23 04:17 VBG Base Excess 2.4 mEq/L 10/18/23 04:17 POC Sodium 137 mmol/L (135-144) 10/18/23 04:03 Sodium 140 mmol/L (136-145) 10/24/23 05:11 POC Potassium 3.9 mmol/L (3.3-5.0) 10/18/23 04:03 Potassium 4.3 mmol/L (3.5-5.1) 10/24/23 05:11 POC Chloride 101 mmol/L (101-112) 10/18/23 04:03 Chloride 106 mmol/L (98-107) 10/24/23 05:11 Carbon Dioxide 28 mmol/L (21-32) 10/24/23 05:11 POC Total CO2 24 mmol/L (24-31) 10/18/23 04:03 Anion Gap 6 (3-11) 10/24/23 05:11 POC Anion Gap 17.0 mmol/L (16-25) 10/18/23 04:03 POC BUN 12 mg/dl (7-18) 10/18/23 04:03 BUN 21 mg/dl (6-23) 10/24/23 05:11 Creatinine 0.84 mg/dl (0.6-1.4) 10/24/23 05:11 POC Creatinine 1.1 mg/dl (0.6-1.3) 10/18/23 04:03 Est Cr Clr Drug Dosing 130.8 ml/min 10/24/23 05:11 Est GFR ( Amer) 120.8 ml/min 10/24/23 05:11 Est GFR (Non-Af Amer) 104.3 ml/min 10/24/23 05:11 BUN/Creatinine Ratio 25.0 (10-20) H 10/24/23 05:11 Glucose 97 mg/dl (70-99(Fasting)) 10/24/23 05:11 POC Glucose (other) 180 mg/dl (70-99) H 10/18/23 04:03 Lactate 1.5 mmol/L (0.4-2.0) 10/18/23 03:56 Calcium 9.1 mg/dl (8.6-10.3) 10/24/23 05:11 POC Ioniz Calcium Raul 1.15 mmol/l (1.12-1.32) 10/18/23 04:03 Magnesium 2.2 mg/dl (1.7-2.4) 10/21/23 05:17 Total Bilirubin 0.5 mg/dl (0.2-1.0) 10/18/23 03:56 AST 34 U/L (13-39) 10/18/23 03:56 ALT 24 U/L (7-52) 10/18/23 03:56 Alkaline Phosphatase 99 U/L (34-104) 10/18/23 03:56 Troponin I High Sens 4.8 pg/ml (0-20) 10/18/23 03:56 B-Natriuretic Peptide 19 pg/ml (0-100) 10/18/23 04:17 Total Protein 7.5 gm/dl (6.0-8.3) 10/18/23 03:56 Albumin 4.0 gm/dl (3.4-5.0) 10/18/23 03:56 Globulin 3.5 gm/dl (2.5-4.0) 10/18/23 03:56 Albumin/Globulin Ratio 1.1 (0.9-2) 10/18/23 03:56 Procalcitonin 0.12 ng/ml (0-0.5) 10/18/23 14:38 Urine Color Yellow 10/18/23 05:50 Urine Appearance Clear (Clear) 10/18/23 05:50 Urine pH 5.5 (4.5-7.5) 10/18/23 05:50 Ur Specific [place] <= 1.005 (1.000-1.030) 10/18/23 05:50 Urine Protein Negative (Negative) 10/18/23 05:50 Urine Glucose (UA) Negative (Negative) 10/18/23 05:50 Urine Ketones Negative (Negative) 10/18/23 05:50 Urine Blood Negative (Negative) 10/18/23 05:50 Urine Nitrite Negative (Negative) 10/18/23 05:50 Urine Bilirubin Negative (Negative) 10/18/23 05:50 Urine Urobilinogen Negative (Negative) 10/18/23 05:50 Ur Leukocyte Esterase Negative (Negative) 10/18/23 05:50 Nasal Screen MRSA (PCR) Negative (Negative) 10/18/23 07:28 Adenovirus (PCR) Not Detected (NotDetected) 10/18/23 03:56 B. pertussis DNA (PCR) Not Detected (NotDetected) 10/18/23 03:56 B.parapertussis DNA PCR Not Detected (NotDetected) 10/18/23 03:56 C. pneumoniae DNA (PCR) Not Detected (NotDetected) 10/18/23 03:56 Coronavirus OC43 (PCR) Not Detected (NotDetected) 10/18/23 03:56 Coronavirus HKU1 (PCR) Not Detected (NotDetected) 10/18/23 03:56 Coronavirus 229E (PCR) Not Detected (NotDetected) 10/18/23 03:56 SARS-CoV-2 (PCR) Not Detected (NotDetected) 10/18/23 03:56 Coronavirus NL63 (PCR) Not Detected (NotDetected) 10/18/23 03:56 Human Metapneumovir PCR DETECTED (NotDetected) A 10/18/23 03:56 Influenza Type A (PCR) Not Detected (NotDetected) 10/18/23 03:56 Influenza Type B (PCR) Not Detected (NotDetected) 10/18/23 03:56 M. pneumoniae (PCR) Not Detected (NotDetected) 10/18/23 03:56 Parainfluenza 1 (PCR) Not Detected (NotDetected) 10/18/23 03:56 Parainfluenza 2 (PCR) Not Detected (NotDetected) 10/18/23 03:56 Parainfluenza 3 (PCR) Not Detected (NotDetected) 10/18/23 03:56 Parainfluenza 4 (PCR) Not Detected (NotDetected) 10/18/23 03:56 RSV (PCR) Not Detected (NotDetected) 10/18/23 03:56 Entero/Rhino (PCR) Not Detected (NotDetected) 10/18/23 03:56 Impressions Chest CTA 10/18/23 03:40 Exam(s): CTA CHEST IV Amt: 117 ml optiray 320 EXAM: CT Angiography Chest With Intravenous Contrast CLINICAL HISTORY: Reason for exam: Dyspnea. TECHNIQUE: Axial computed tomographic angiography images of the chest with intravenous contrast. CTDI is 27.81 mGy and DLP is 838.61 mGy-cm. Automated exposure control was utilized for the study. A dose lowering technique was utilized adhering to the principles of ALARA. MIP reconstructed images were created and reviewed. COMPARISON: Pulmonary CTA December 29, 2016 FINDINGS: Pulmonary arteries: Unremarkable. No pulmonary embolism. Aorta: No acute findings. No thoracic aortic aneurysm. Lungs: Extensive bilateral pulmonary infiltrates consistent with pneumonia. No mass. Pleural space: Unremarkable. No significant effusion. No pneumothorax. Heart: Unremarkable. No cardiomegaly. No significant pericardial effusion. No evidence of RV dysfunction. Bones/joints: No acute fracture. No dislocation. Soft tissues: Unremarkable. Lymph nodes: Unremarkable. No enlarged lymph nodes. IMPRESSION: No evidence of pulmonary emboli. Extensive bilateral pulmonary infiltrates consistent with pneumonia. Electronically signed by: Addison Samayoa MD 10/18/23 05:05 AM Chest X-Ray 10/21/23 10:56 XR chest 1V portable HISTORY: 47 years-old Male Shortness of breath COMPARISON: CTA chest 10/18/2023 TECHNIQUE: AP view of the chest FINDINGS: Cardiac mediastinal and hilar silhouettes are unchanged. Mixed interstitial and alveolar opacities are redemonstrated, progressively worsened throughout the left midlung and left lung base. There is no pneumothorax or large pleural effusion. Bones appear grossly intact. IMPRESSION: There are persistent infectious/inflammatory mixed interstitial and alveolar opacities with progressively worsening consolidation within the left lung base. ACT 112: Negative or not required by law. The above report was generated using voice recognition software. It may contain grammatical, syntax or spelling errors. Electronically signed by: Lorenzo Carl M.D. 10/21/2023 12:07 PM Ordered Studies 10/18/23 03:40 CT angio chest PE protocol Stat Hospital Course (1) Multifocal pneumonia: 47-year-old male with past medical history significant for hypertension , GERD anxiety, history of PE, history of PTSD, history of panic disorder, bipolar disorder, major depression, paranoia comes in because of shortness since last 2 days and mostly dry cough and feeling cold and chills and body ache and was saturating 84% room air. Smokes half pack a day. States quit alcohol in 2019. Recently on September 24 2023 had right myringotomy and tube placement for chronic right otitis media. Acute respiratory failure with hypoxia Multifocal pneumonia--likely viral pneumonia Acute COPD exacerbation secondary to above --CTA:No evidence of pulmonary emboli. Extensive bilateral pulmonary infiltrates consistent with pneumonia. --Respiratory PCR positive for human metapneumovirus Normal procalcitonin Empirically on ceftriaxone, doxycycline Continue nebs, steroids Titrate supplemental oxygen to keep saturation 88 to 92% Added flutter Antitussives as needed 2 step: Needs 2 L with activity Plan to be discharged home today Counseled to quit smoking Tobacco use disorder Counseled to quit smoking on multiple occasions GERD Continue PPI History of PTSD History of panic disorder History of bipolar disorder Depression Paranoia On fluoxetine, olanzapine, prazosin and Klonopin as needed History of PE In 2018 and was on Eliquis for 6 months DVT prophylaxis Lovenox CODE STATUS Full code Disposition Home Total Time Total Time Spent Total Time Spent (In Minutes): 56 minutes Discharge Plan Discharge Items Patient Disposition: Home - Self-Care Reason For Visit: COPD EX, MULTIFOCAL PNEUMONIA Discharge Diagnosis: Acute respiratory failure with hypoxia Multifocal pneumonia Acute COPD exacerbation Tobacco use disorder Condition on Discharge: Fair Activity: Per Instructions section Exercise/Sports: Wait until after follow-up appointment Non-emergency contact: Primary Care Provider Call non-emergency contact if: you have any medication questions, your symptoms worsen, your pain is concerning for you and you have a fever Follow-up/Referrals: Malina Falcon DO [Primary Care Provider] - (Date & Time 10/28/2023 10:10 AM Provider Malina Falcon DO Department [facility] ) Diet: Heart Healthy Addtl Attending Provider Instructions: Follow-up with your primary care physician in 1 week as scheduled -- Use oxygen 2 L via nasal cannula with activity as advised --Complete the prednisone taper course and doxycycline as prescribed --Prednisone taper course: Start taking prednisone 30 mg daily for 2 days, then take 20 mg daily for 2 days, then take 10 mg daily for 2 days and stop -- Quit smoking tobacco as advised Seek immediate medical attention if your symptoms reoccur or worsen Please take all medications as instructed on discharge list below. Please call if you have any questions or problems. You can reach a [facility] hospitalist on duty at [facility] 24 hours a day by calling [phone] Pending Studies at Discharge: No Stand-Alone Forms: My [facility], Smoking Cessation Medications and DC Order Prescriptions: New doxycycline hyclate 100 mg Capsule 100 mg PO BID Qty: 8 0RF albuterol sulfate [Ventolin HFA] 90 mcg/actuation Hfa Aerosol Inhaler 2 puff inhalation Q6R PRN (Reason: shortness of breath or wheezing) Qty: 8.5 0RF fluticasone propionate 50 mcg/actuation [place],Suspension 1 spray NA DAILY Qty: 16 0RF prednisone 10 mg tablet 10 mg PO DIRECTED Qty: 12 0RF Rx Instructions: Start taking prednisone 30 mg daily for 2 days, then take 20 mg daily for 2 days, then take 10 mg daily for 2 days and stop Continued fluoxetine 40 mg capsule 80 mg PO DAILY gabapentin 600 mg tablet 600 mg PO BID prazosin 1 mg capsule 1 mg PO DAILY Rx Instructions: Prazosin 1mg in morning and 3mg po q hs clonazepam 0.5 mg tablet 0.5 mg PO TID PRN (Reason: Anxiety) olanzapine 5 mg tablet 5 mg PO DAILYBB omeprazole 20 mg capsule,delayed release(DR/EC) 20 mg PO DAILY olanzapine 20 mg tablet 20 mg PO HS prazosin 1 mg capsule 3 mg PO HS sildenafil 100 mg tablet 100 mg PO DAILY PRN (Reason: Erectile Dysfunction) Discharge Orders: Discharge Order (Routine); Ordered 10/24/23 Ordered By: Jovan Moore Admission Data Admit Date/Time: 10/18/23 05:52 Attending Provider: Jovan Moore Admit Provider: Jeison Grewal Primary Care Provider: Malina Falcon Other Providers: Jeison Grewal
== END 2023-10-24 15:53 | disposition home or self-care (01) | DRG 193 ==
LOC: ED 03:36 → EDINP 05:52 → SUATTDRO 05:52 → 2S 06:17